=== PATIENT | female | born 1935 | race Caucasian/White ===

== ENCOUNTER 2018-03-09 00:29 | Outpatient (CLI) | payer OTHER, SELFPAY ==
--- NOTE | 2018-03-09 14:07 | DI.MAMMO_ITS ---
SYMPTOM/DIAGNOSIS: SCREENING, Z12.31 MAMMOGRAMS: Mammograms were interpreted according to the usual protocol including computer analysis with CAD system, tomosynthesis and C view imaging. Comparison is with the prior examinations. No suspicious masses or microcalcifications are seen. There is a focal asymmetric density in the inferior right breast on the mediolateral oblique view. This area should be further evaluated with a spot compression view. Ultrasound may be indicated at that time. IMPRESSION: Additional views of the right breast as described above. Category 0, breast density C. MQSA ASSESSMENT OF FINDINGS: Incomplete: Needs additional imaging evaluation. Category 0. Patient will receive a letter notifying them of these results. Bi-RADS category C. The breasts are heterogeneously dense, which may obscure small masses.
== END 2018-03-09 00:49 ==
PROVIDERS: PCP Family Medicine; Visit Provider Family Medicine
DX: Z12.31 Encounter for screening mammogram for malignant neoplasm of breast (principal); R92.8 Other abnormal and inconclusive findings on diagnostic imaging of breast
CPT/HCPCS: 77063; 77067

== ENCOUNTER 2018-03-15 00:25 | Outpatient (CLI) | payer OTHER, SELFPAY ==
--- NOTE | 2018-03-15 10:44 | DI.COMBO_ITS ---
SYMPTOM/DIAGNOSIS: F/U MAMMO, ASYMMETRIC DENSITY RIGHT BREAST ADDITIONAL VIEWS AND RIGHT BREAST ULTRASOUND: Additional images are interpreted according to the usual protocol including tomosynthesis and 2D imaging. Additional views of the right breast fail to show a persistent discrete mass. A right breast ultrasound was performed of the lower inner and lower outer quadrants. No cystic or solid masses are seen. IMPRESSION: No evidence for malignancy. Yearly mammography is recommended. Category 1. The findings were discussed with the patient on the date of the examination. [facility] ASSESSMENT OF FINDINGS: Negative. Category 1. Patient will receive a letter notifying them of these results. Bi-RADS category C. The breasts are heterogeneously dense, which may obscure small masses.
== END 2018-03-15 00:45 ==
PROVIDERS: PCP Family Medicine; Visit Provider Family Medicine
DX: R92.8 Other abnormal and inconclusive findings on diagnostic imaging of breast (principal); Z12.31 Encounter for screening mammogram for malignant neoplasm of breast
CPT/HCPCS: 76642; 77063; 77067

== ENCOUNTER 2018-08-03 23:30 | Outpatient (CLI) | payer OTHER, SELFPAY ==
--- NOTE | 2018-08-03 10:20 | DI.RAD_ITS ---
SYMPTOM/DIAGNOSIS: BACK PAIN, M54.9, DORSALGIA, H/O FALL LUMBAR SPINE: Comparison is made with bologna lacer view from a dexa scan from 2015. There is a stable mild compression fracture of the superior endplate of L 1. No additional compression fractures are seen. There is mild narrowing of the L 3-4, L 4-5 and L 5-S 1 disc spaces. Endplate osteophytes are seen. There are facet degenerative changes in the lower lumbar spine and slight spondylolisthesis at L 4-5. There is no spondylolysis. IMPRESSION: Stable L 1 compression fracture. Degenerative disc changes and facet degenerative changes.
== END 2018-08-03 23:50 ==
PROVIDERS: PCP Family Medicine; Visit Provider Internal Medicine
DX: M54.5 Low back pain (principal); M51.37 Other intervertebral disc degeneration, lumbosacral region; M47.817 Spondylosis without myelopathy or radiculopathy, lumbosacral region; M43.16 Spondylolisthesis, lumbar region
CPT/HCPCS: 72110

== ENCOUNTER 2018-10-13 11:19 | Emergency (ER) | payer OTHER, SELFPAY ==
[2018-10-13 11:27] VITALS: BP 144/80; PULSE 67; RESP 18; TEMP 36.3; O2SAT 98
--- NOTE | 2018-10-13 11:49 | ED.GENADUL_ITS ---
Discharge Plan Disposition Patient Disposition: HOME Discharge Details Chief Complaint: Cellulitis Clinical Impression: Tick bite Primary Care Provider: Eligio Maddox ED Provider: Magen Meyer Home Meds and New Rx's Prescriptions: No Action CENTRUM SILVER TABLET 1 EACH tablet 1 ea PO DAILY RF: 0 cholecalciferol (vitamin D3) [Vitamin D3] 400 UNIT capsule 800 unit PO DAILY RF: 0 Aspirin/Acetaminophen/Caffeine [Excedrin Extra Strength Caplet] 1 EACH tablet 1 ea PO PRN PRNRF: 0 Discharge Instructions Instructions: Tick Bite (ED) Referrals: Eligio Maddox [Primary Care Provider] - Medical Decision Making 83-year-old female status post tick bite unclear if tick was engorged or exactly type of tick due to the risk of Borrelia burgdorferi in this area we will treat the patient with 1 dose of doxycycline here in the emergency department and have the patient follow-up PRN with the emergency department or her primary care doctor for fever chills joint aches rash. Discussed with patient the morphology of erythema migrans so she can watch for any new symptoms. HPI 83-year-old female presents status post tick bite noted last night around 11 PM on her left upper arm patient removed a tick through it in the toilet and flushed no other complaints no fever chills joint aches no rash no swelling no pain at the site. Patient no history of tick bites in the past unsure if the tick was engorged. No shortness of breath chest pain nausea vomiting diarrhea LOC fever chills weight loss weight gain General Date/Time Provider Initiated Documentation: 10/13/18 11:33 . Related Data Home Medications Medication Instructions Recorded Confirmed Centrum Silver Tablet 1 ea PO DAILY 01/13/13 10/13/18 cholecalciferol (vitamin D3) 800 unit PO DAILY 09/14/16 10/13/18 [Vitamin D3] Aspirin/Acetaminophen/Caffeine 1 ea PO PRN PRN 02/23/17 10/13/18 [Excedrin Extra Strength Caplet] Allergies Allergy/AdvReac Type Severity Reaction Status Date / Time No Known Allergies Allergy Unverified 10/13/18 11:29 General Stated Complaint: Cellulitis GERMANIA: 4 Review of Systems Review of Systems All systems reviewed & are unremarkable except as noted in HPI and below [facility] Medical History Hyperlipidemia Osteoarthritis Family History Mother Essential hypertension Father Pulmonary fibrosis CHF (congestive heart failure) Heart disease Sister Essential hypertension Hyperlipidemia Neoplasm Grandfather No problems noted. Grandfather No problems noted. Grandmother Neoplasm Grandmother No problems noted. Brother Neoplasm Brother Heart disease Social History Smoking/Tobacco Use Status: Never Alcohol Intake: never Drug use: Never Do you feel safe at home: Yes Do you feel safe in your relationship?: Yes Exam Narrative Exam Narrative: Pulse oximetry reviewed by me and is normal [] Constitutional: Pt is in no acute distress. he is well appearing. he oriented to person, place, and time. Eyes: conjunctivae are normal. Pupils are equal, round, and reactive to light. No scleral icterus. extraocular muscles are intact Ears/Nose/Mouth/Throat: mucus membranes are moist. Musculoskeletal: neck is supple. normal range of motion in all extremities. Cardiovascular: Normal rate and rhythm. No lower extremity edema [] Respiratory: effort is normal . pt exhibits no stridor or respiratory distress. [] GastrointestinaI: abdomen soft, +BS, nontender, -rebound, -guarding. Neurological: alert and oriented to person, place, and time. he has normal strength, no tremor. Skin: Skin is warm and dry. he is not diaphoretic. Distal perfusion in tact, warm extremities, cap refill ? 2 seconds. 1 mm area of erythema consistent with tick proboscis insertion site no surrounding warmth tenderness to palpation crepitus or induration or f fluctuance Hem/Lymph/Imm: No cervical LAD, no goiter, no conjunctival pallor Psych: normal mood and affect. behavior is normal Triage and nurse notes reviewed.[] Course Vital Signs Temperature 36.3 C L 10/13/18 11:27 Pulse 67 10/13/18 11:27 Respiratory Rate 18 10/13/18 11:27 Blood Pressure 144/80 H 10/13/18 11:27 Pulse Oximetry 98 10/13/18 11:27 Temperature 36.3 C L 10/13/18 11:27 Temperature Source Skin 10/13/18 11:27 Pulse 67 10/13/18 11:27 Respiratory Rate 18 10/13/18 11:27 Respiratory Effort Non-Labored 10/13/18 11:42 Blood Pressure 144/80 H 10/13/18 11:27 Blood Pressure Position Sitting 10/13/18 11:27 Pulse Oximetry 98 10/13/18 11:27 Oxygen Delivery Method Room Air 10/13/18 11:27 Oxygen Flow Rate 0 10/13/18 11:27 Pain Level 0 10/13/18 11:27
[2018-10-13] MEDS: Doxycycline Hyclate 100 MG CAP PO (11:56)
== END 2018-10-13 12:15 | disposition home or self-care (01) ==
LOC: ER 12:23
PROVIDERS: Emergency Provider Emergency Medicine; PCP Family Medicine
DX: S40.862A Insect bite (nonvenomous) of left upper arm, initial encounter (principal); W57.XXXA Bitten or stung by nonvenomous insect and other nonvenomous arthropods, initial encounter
CPT/HCPCS: 99283

== ENCOUNTER 2019-04-04 02:30 | Outpatient (CLI) | payer OTHER, SELFPAY ==
[2019-04-04 13:15] LABS: Calculated LDL 130 mg/dL; Cholesterol 208 mg/dL (50-200); HDL Cholesterol 66 mg/dL (40-60); Triglyceride 63 mg/dL (30-150)
[2019-04-04 13:43] LABS: ESR 25 mm/hr (0-30)
== END 2019-04-04 02:50 ==
PROVIDERS: PCP Family Medicine; Visit Provider Family Medicine
DX: E78.5 Hyperlipidemia, unspecified (principal); M79.10 Myalgia, unspecified site
CPT/HCPCS: 36415; 80061; 85652

== ENCOUNTER 2019-04-04 12:59 | Outpatient (REF) | payer OTHER, SELFPAY ==
--- NOTE | 2019-04-04 10:40 | SKI_PTH ---
PATIENT: Noy Wheeler LOC: [facility] U#:[id number] AGE/SX: 84/F ROOM: RE04/04/[address]: Eligio Maddox MD : [id number] BED: DIS: 04/04/2019 SPEC #: [id number] RECD: 04/05/19 12:39 STATUS: FABIOLA REQ #: [id number] CRAIG: 04/04/19 10:[address]: Eligio Maddox DEPT: Surgical Specimen RECD BY: Sissy Anaya Tissues: 1 - SKIN BIOPSY(SHAVE/PUNCH) Procedures: SKIN LEVEL 4 Comments: [id number]
== END 2019-04-04 13:19 ==
LOC: LBN 12:59
PROVIDERS: PCP Family Medicine; Visit Provider Family Medicine
DX: L82.0 Inflamed seborrheic keratosis (principal)
CPT/HCPCS: 88305

== ENCOUNTER 2020-03-06 02:50 | Outpatient (CLI) | payer OTHER, SELFPAY ==
--- NOTE | 2020-03-06 07:15 | DI.MAMMO_ITS ---
EXAM: MAMMO SCREENING CLINICAL HISTORY: screening,Z12.39 TECHNIQUE: Mammograms were interpreted according to the usual protocol including computer analysis w [employer] CAD system, tomosynthesis and C-view imaging. COMPARISON: 2009 through 2017 FINDINGS: The breasts are composed of heterogeneously dense fibroglandular densities, Breast Density category C . No suspicious masses or suspicious microcalcifications are seen. Vascular calcifications are inciden tally noted. No skin thickening or abnormal axillary lymph nodes are seen. There has been no significant change from prior exams. IMPRESSION: BI-RADS Category 1, Negative mammogram. Continued annual screening should be based on patient's clinical status given age.. Breast Density Category C, heterogeneously Dense. The mammogram demonstrates the patient's breast tissue is dense. Dense breast tissue is very common a nd is not abnormal but dense breast tissue can make it harder to find cancer on a mammogram. Also, de nse breast tissue may increase breast cancer risk. This information about the result of the mammogram report was provided to the patient to raise their awareness. Use this report when you speak with the patient about their risks for breast cancer, which includes their family history. At that time, you may recommend additional screening tests (Ultrasound or MRI) as they might be useful based on their r isk. A negative radiographic report should not delay biopsy if a dominant or clinically suspicious mass is present. Up to ten percent of cancers are not identified on mammography. A negative report may reinforce clinical impression. Adenosis and dense breasts may obscure an underlying neoplasm. False positive reports average 6 to 10%.
== END 2020-03-06 03:10 ==
PROVIDERS: PCP Family Medicine; Visit Provider Family Medicine
DX: Z12.31 Encounter for screening mammogram for malignant neoplasm of breast (principal)
CPT/HCPCS: 77063; 77067

== ENCOUNTER 2021-02-19 14:27 | Outpatient (REF) | payer OTHER, SELFPAY ==
[2021-02-19 14:03] LABS: Abs Immature Grans 0.01 10^3/uL (0.0-0.06); Absolute Basophil Count 0.02 10^3/uL (0.0-0.2); Absolute Eosinophil Count 0.06 10^3/uL (0.0-0.7); Absolute Lymphocyte Count 1.19 10^3/uL (1.2-3.4); Absolute Monocyte Count 0.41 10^3/uL (0.1-0.8); Absolute Neutrophil Count 4.26 10^3/uL (1.2-6.7); Basophils % 0.3; Immature Grans % 0.2; MCH 19.8 pg (27.0-33.0); MCHC 27.5 % (32.0-36.0); MCV 72.1 fL (80-95); MPV 12.4 fL (8.0-11.0); Monocytes % 6.9; Neutrophils % 71.6; Nucleated RBC 0 %; Platelet Count 352 10^3/uL (130-400); RBC 3.33 10^6/uL (3.93-5.22); RDW 19.1 % (11.7-14.6); RDW-SD 49.4 fL; WBC 5.95 10^3/uL (4.4-10.8)
[2021-02-19 14:23] LABS: Anion Gap 9.9 mmol/L (3-11); BUN 20 mg/dL (7-18); CO2 26.1 mmol/L (21.0-32.0); CREATININE 1.1 mg/dL (0.55-1.02); Calcium 9.2 mg/dL (8.5-10.1); Chloride 106 mmol/L (98-107); Estimated GFR 47.32 (mL/min/1.73m2); Glucose 93 mg/dL (74-106); Potassium 4.3 mmol/L (3.5-5.1); Sodium 142 mmol/L (136-145)
[2021-02-19 14:24] LABS: Bilirubin Small (Negative); Blood Negative (Negative); Clarity Clear (Clear); Glucose Negative (Negative); Ketones Negative (Negative); Leukocyte Esterase Negative (Negative); Nitrite Positive (Negative); Specific Gravity 1.025 (1.005-1.025); Urobilinogen 0.2 EU/dL (Up TO 0.2)
[2021-02-19 14:27] LABS: Bacteria Few HPF (Negative); Crystals Negative HPF (Negative); Epithelial Cells Negative HPF (Negative); Mucus Moderate (Negative); RBC 0-2 HPF (0-2); WBC 0-2 HPF (0-5)
[2021-02-19 14:28] LABS: C & S Indicated? C&S Done As Ordered; Casts 5-10 Hyaline LPF (Negative)
[2021-02-19 14:34] LABS: Anisocytosis 2+; Diff Comment RBC Morph Reviewed; HGB 6.6 g/dL (11.2-15.7); Hypochromasia 2+; Microcytosis 2+
[2021-02-19 14:47] LABS: Polychromasia Present
== END 2021-02-19 14:28 | disposition home or self-care (01) ==
LOC: LBN 14:27
PROVIDERS: PCP Family Medicine; Referring Provider Physician Assistant Medical; Visit Provider Physician Assistant Medical
DX: R10.84 Generalized abdominal pain (principal)
CPT/HCPCS: 80048; 81003; 81015; 85025; 87086

== ENCOUNTER 2021-02-19 17:03 | Inpatient (IN) | payer MEDICARE, SELFPAY ==
[2021-02-19] VITALS (27 sets, daily range): BP systolic 129–161; BP diastolic 60–89; PULSE 68–90; RESP 14–23; TEMP 36.3–37; O2SAT 86–100
--- NOTE | 2021-02-19 17:30 | DI.CT_ITS ---
Exam(s) CT ABDOMEN PELVIS W EXAM: CT ABDOMEN PELVIS W CLINICAL HISTORY: Abdominal Pain TECHNIQUE: Imaging Protocol: Axial computed tomography images with coronal and sagittal reformatted images were created and reviewed CONTRAST MATERIAL: Intravenous: Omnipaque 350 Contrast volume:80 mL Oral: No COMPARISON: No exams were available for comparison FINDINGS: ABDOMEN: Lung Bases: Normal where visualized. Liver: Normal density. No measurable mass. There is a small simple cyst in the right lobe of the live r. No follow-up is recommended. Portal, Superior Mesenteric, and Splenic Veins: Unremarkable. Gallbladder and Biliary Tract: No radiodense calculus or dilation. Pancreas: Normal density, no abnormal calcifications or inflammatory process. Spleen: Normal. Adrenals: No masses seen. Kidneys: Normal size, contour and axis. No radiodense stones or obstructive uropathy. No masses seen. Abdominal Aorta: Abdominal portion non-dilated. Atherosclerosis. Bowel: There is a collection of bowel in the right and central abdomen which appears to protrude thro ugh the mesentery in the right lower quadrant. The bowel involved includes the distal small bowel an d cecum. The findings raise a question of an internal hernia. Intussusception or volvulus should al so be considered. The proximal small bowel is not dilated. No appendicitis. Peritoneal Cavity: Trace amount of free fluid in the pelvis. No free air. Lymph Nodes: Within normal limits. Bones: Within normal limits for the patient's age. Old compression deformities are seen at L1 and L2 . Soft Tissues: Unremarkable. PELVIS: Bladder: Symmetric distention, no gross wall thickening. Reproductive Organs: Unremarkable as visualized. Lymph Nodes: Within normal limits. Bones: Within normal limits for the patient's age. IMPRESSION: 1. Collection of bowel in the right in central abdomen which appears to represent an internal hernia. Intussusception or volvulus cannot be excluded. A lead point mass delete should be considered. 2. Trace amount of free fluid in the pelvis. No evidence of pneumoperitoneum. RADIATION DOSE DELIVERED: 624.32mGy.cm Total DLP DATA REPOSITORY: All CT scans at this facility are submitted to the National Radiology Data Registry (NRDR) Dose Index Registry (DIR) with the [employer] (ACR). RADIATION OPTIMIZATION: All CT scans at this facility use at least one of these dose optimization te chniques: automated exposure control; mA and/or kV adjustment per patient size (includes targeted exa ms where dose is matched to clinical indication); or iterative reconstruction.
--- NOTE | 2021-02-19 17:41 | ED.GENADUL_ITS ---
Discharge Plan Disposition [facility] Condition: Stable Discharge Details Clinical Impression: Abdominal pain, Anemia, GI (gastrointestinal bleed) Admit Date/Time: 02/19/21 20:17 Admit Provider: Bárbara Mulligan Attending Provider: Bárbara Mulligan Primary Care Provider: Eligio Maddox ED Provider: Mikayla Stein Medical Decision Making 86-year-old female with a past medical history of arthritis and high cholesterol and skin cancer to the nose presents to the ER with abdominal cramping which began yesterday. Patient was seen in urgent care prior to arrival and was found to be anemic with a hemoglobin of 6.6 and hematocrit 24.0. Patient denies any diarrhea, nausea vomiting, fever chills denies any dark stools or hematochezia. Denies fatigue. On initial exam abdomen is soft, nondistended nontender to palpation all 4 quadrants. CBC, CMP, urinalysis, type and screen, CT abdomen pelvis with IV contrast ordered at this time. CBC shows hemoglobin of 6.4, hematocrit 23.7, RBC 3.26, MCV 72.7, MCH 19.6, MCHC 27%, RDW 19% platelets are 349, BUN 22 creatinine 1.0 GFR 62 COMPARISON: 1. US AAA DIAGNOSTIC/FOLLOW UP 03/01/2017 4:24 PM 2. CR XR lumbar spine complete 08/03/2018 9:58:57 AM FINDINGS: Lungs: Mild dependent changes at the visualized lung bases. Liver: Tiny hypodensity at the right lobe of the liver is too small to accurately characterize, measuring 5 mm, likely representing a hepatic cyst. Gallbladder and bile ducts: Normal. No calcified stones. No ductal dilation. Pancreas: Normal. No ductal dilation. Spleen: Normal. No splenomegaly. Adrenal glands: Normal. No mass. Kidneys and ureters: Small hypodensity at the superior pole of the left kidney, too small to accurately characterize, likely representing a benign simple cyst. Stomach and bowel: Large intussusception involving the cecum through the transverse colon, containing portions of the distal small bowel. Appendix: The appendix is not identified. Intraperitoneal space: Small amount of free fluid in the pelvis. Vasculature: Mild diffuse atherosclerosis of the abdominal aorta and branch vessels, with tortuosity of the infrarenal abdominal aorta. Lymph nodes: Unremarkable. No enlarged lymph nodes. Urinary bladder: Unremarkable as visualized. Reproductive: Unremarkable as visualized. 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 Stable compression deformity at L1. Interval development of an inferior endplate compression deformity at L2, which appears chronic on the current study. Soft tissues: Unremarkable. IMPRESSION: 1. Large hiatal hernia involving the cecum through the transverse colon. The imaging findings raise concern for a lead point mass, however this is not clearly identified on the current examination. 2. Small amount of free fluid in the pelvis, likely related to acute bowel changes described above. 3. Interval development of an inferior endplate compression fracture at L2, which appears chronic on the current study. Stable fracture at L1. Thank you for allowing us to participate in the care of your patient. Dictated and Authenticated by: Valentín Juarez MD 2020: Spoke with Dr. Mulligan discussed patient case in detail with her who accepts patient for admission, she recommends an additional unit of blood. Patient and friend informed of plan of care and are in agreement and verbalized understanding. Patient to be admitted under surgery service. Patient remained hemodynamically stable throughout the remainder of her stay alert and oriented. HPI General Mode of arrival: ambulatory . Date/Time Provider Initiated Documentation: 02/19/21 17:35 . Limitations to Documentation: no limitations . Information obtained by: patient, RN notes reviewed and old records reviewed . HPI Narrative: 86-year-old female with a past medical history of arthritis and high cholesterol and skin cancer to the nose presents to the ER with abdominal cramping which began yesterday. Patient was seen in urgent care prior to arrival and was found to be anemic with a hemoglobin of 6.6 and hematocrit 24.0. Patient denies any diarrhea, nausea vomiting, fever chills denies any dark stools or hematochezia. Denies fatigue. On initial exam abdomen is soft, nondistended nontender to palpation all 4 quadrants. Related Data Home Medications Medication Instructions Recorded Confirmed Centrum Silver Tablet 1 ea PO DAILY 01/13/13 02/19/21 cholecalciferol (vitamin D3) 800 unit PO DAILY 09/14/16 02/19/21 [Vitamin D3] Aspirin/Acetaminophen/Caffeine 1 ea PO PRN PRN 02/23/17 02/19/21 [Excedrin Extra Strength Caplet] Allergies Allergy/AdvReac Type Severity Reaction Status Date / Time No Known Allergies Allergy Verified 02/19/21 17:15 General Stated Complaint: Abd Prob GERMANIA: 3 Review of Systems All systems reviewed & are unremarkable except as noted in HPI and below Gastrointestinal Gastrointestinal: Reports abdominal pain (Cramping) PFSH Medical History Hyperlipidemia Osteoarthritis Family History Mother , GI BLEED at age 86. Essential hypertension Father , age 79 Pulmonary fibrosis CHF (congestive heart failure) Heart disease Sister , age 72 Essential hypertension Hyperlipidemia Liver cancer Maternal Grandfather No problems noted. Paternal Grandfather No problems noted. Maternal Grandmother Cancer Paternal Grandmother No problems noted. Brother , age 80? Pancreatic cancer Brother , age 60? Heart disease Sister No problems noted. Social History Smoking/Tobacco Use Status: Never Smoking risk assessment performed?: Yes Alcohol Intake: never Drug use: Never Substance use type: does not use Caregiver/Support person: No Household members: none Communication Needs: None Do you need help understanding health information?: Never Pets and animals: No Sexually active: No Do you think of yourself as: straight/heterosexual What is your relationship status?: How often do you talk on the phone with friends or family?: three or more times per week How often do you get together with friends or relatives?: three or more times per week How often do you attend roman catholic or episcopal services?: 1-3 times per year Do you belong to any clubs or organized social groups?: no Panel score (0-1 are the most socially isolated patients): 1 What type of physical activity do you participate in: other Details: [employer] and decline to answer Duration: decline to answer Frequency: 1-2 times per week Johanne/Church: No preference Special johanne needs: No Seatbelt use: always Helmet use: Yes Helmet use: always Drive intox or ride w/intox 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 Appears stated age. Normal body habitus. Head: Normocephalic, no trauma. Eyes: Pupils PERRLA, Red reflex noted, EOM's intact. Eyelids symmetrical without lesions, discharge, or swelling. ENT: Bilateral TM's WNL, External ear normal to inspection, no mastoid TTP, swelling, or erythema, Nasal turbinates WNL, no nasal discharge. Normal dentition, Posterior pharynx WNL, no exudate. Chest: RRR, Normal S1, S2, distal pulses intact. Resp: Lungs clear to auscultation bilaterally, no wheezes, rales, or rhonchi. Abdomen: Soft, nondistended nontender to palpation all 4 quadrants. Musculoskeletal: Normal gait, 5/5 strength to all four extremities. Skin: No suspicious rashes or lesions. Capillary refill less than 2 sec. Neurologic: Cranial nerves II-XII intact. Alert and oriented x 3. DTR's intact. Hematologic/Lymphatic: No ecchymosis, no lymphadenopathy. Course Vital Signs Vital signs: Vital Signs Temperature 36.7 C 02/19/21 17:11 Pulse 90 02/19/21 17:11 Respiratory Rate 20 02/19/21 17:11 Blood Pressure 142/73 H 02/19/21 17:11 Pulse Oximetry 98 02/19/21 17:11 Temperature 36.7 C 02/19/21 17:11 Temperature Source Skin 02/19/21 17:11 Pulse 90 02/19/21 17:11 Respiratory Rate 20 02/19/21 17:11 Respiratory Effort Non-Labored 02/19/21 17:16 Blood Pressure 142/73 H 02/19/21 17:11 Blood Pressure Position Sitting 02/19/21 17:11 Pulse Oximetry 98 02/19/21 17:11 Oxygen Delivery Method Room Air 02/19/21 17:11 Oxygen Flow Rate 0 02/19/21 17:11 Pain Level 5 02/19/21 17:11 Procedures Stool Hemoccult Procedural Steps Taken: stool placed in appropriate test area, developer placed on stool and control areas and controls appropriately positive and negative Hemoccult result: positive
[2021-02-19 17:54] LABS: Abs Immature Grans 0.01 10^3/uL (0.0-0.06); Absolute Basophil Count 0.02 10^3/uL (0.0-0.2); Absolute Eosinophil Count 0.12 10^3/uL (0.0-0.7); Absolute Lymphocyte Count 2.09 10^3/uL (1.2-3.4); Absolute Monocyte Count 0.61 10^3/uL (0.1-0.8); Absolute Neutrophil Count 3.96 10^3/uL (1.2-6.7); Basophils % 0.3; Eosinophils % 1.8; HCT 23.7 % (36.0-46.0); Immature Grans % 0.1; Lymphocytes % 30.7; MCH 19.6 pg (27.0-33.0); MCV 72.7 fL (80-95); MPV 11.1 fL (8.0-11.0); Neutrophils % 58.1; Nucleated RBC 0 %; Platelet Count 349 10^3/uL (130-400); RBC 3.26 10^6/uL (3.93-5.22); RDW-SD 49.8 fL; WBC 6.81 10^3/uL (4.4-10.8)
[2021-02-19 18:02] LABS: Magnesium 2.3 mg/dL (1.8-2.4)
[2021-02-19 18:06] LABS: ALT 16 U/L (14-59); AST 12 U/L (15-37); Albumin 3.5 g/dL (3.4-5.0); Alkaline Phosphatase 136 U/L (46-116); BUN 22 mg/dL (7-18); Bilirubin, Total 0.3 mg/dL (0.2-1.0); Calcium 9.4 mg/dL (8.5-10.1); Chloride 103 mmol/L (98-107); Estimated GFR 52.82 (mL/min/1.73m2); Glucose 104 mg/dL (74-106); Potassium 3.8 mmol/L (3.5-5.1); Sodium 139 mmol/L (136-145); Total Protein 7.6 g/dL (6.4-8.2)
[2021-02-19 18:08] LABS: HGB 6.4 g/dL (11.2-15.7)
[2021-02-19 18:18] LABS: Diff Comment RBC Morph Reviewed; Hypochromasia 2+; Microcytosis 2+; Poikilocytes 1+; Polychromasia Present
[2021-02-19] MEDS: Omnipaque 350 MG/ML 100 ML BTL IJ (19:01)
[2021-02-19] MEDS: Normal Saline Flush 10 ML SYR IVP ×2 (19:02→22:37)
--- NOTE | 2021-02-19 19:57 | DI.VRAD_ITS ---
PROCEDURE INFORMATION: Exam: CT Abdomen And Pelvis With Contrast Exam date and time: 02/19/2021 5:41 PM Age: 86 years old Clinical indication: Abdominal pain; Generalized TECHNIQUE: Imaging protocol: Computed tomography of the abdomen and pelvis with contrast. Contrast material: OMNIPAQUE 350; Contrast volume: 80 ml; Contrast route: INTRAVENOUS (IV); COMPARISON: 1. US AAA DIAGNOSTIC/FOLLOW UP 03/01/2017 4:24 PM 2. CR XR lumbar spine complete 08/03/2018 9:58:57 AM FINDINGS: Lungs: Mild dependent changes at the visualized lung bases. Liver: Tiny hypodensity at the right lobe of the liver is too small to accurately characterize, measuring 5 mm, likely representing a hepatic cyst. Gallbladder and bile ducts: Normal. No calcified stones. No ductal dilation. Pancreas: Normal. No ductal dilation. Spleen: Normal. No splenomegaly. Adrenal glands: Normal. No mass. Kidneys and ureters: Small hypodensity at the superior pole of the left kidney, too small to accurately characterize, likely representing a benign simple cyst. Stomach and bowel: Large intussusception involving the cecum through the transverse colon, containing portions of the distal small bowel. Appendix: The appendix is not identified. Intraperitoneal space: Small amount of free fluid in the pelvis. Vasculature: Mild diffuse atherosclerosis of the abdominal aorta and branch vessels, with tortuosity of the infrarenal abdominal aorta. Lymph nodes: Unremarkable. No enlarged lymph nodes. Urinary bladder: Unremarkable as visualized. Reproductive: Unremarkable as visualized. 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 Stable compression deformity at L1. Interval development of an inferior endplate compression deformity at L2, which appears chronic on the current study. Soft tissues: Unremarkable. IMPRESSION: 1. Large hiatal hernia involving the cecum through the transverse colon. The imaging findings raise concern for a lead point mass, however this is not clearly identified on the current examination. 2. Small amount of free fluid in the pelvis, likely related to acute bowel changes described above. 3. Interval development of an inferior endplate compression fracture at L2, which appears chronic on the current study. Stable fracture at L1. Dictated and Authenticated by: Valentín Juarez MD. Ordering:GEORGIA Degroot MD
[2021-02-19 20:25] LABS: Source Nasal/Nares
--- NOTE | 2021-02-19 20:42 | W.SURGCON ---
Assessment and Plan Assessment and plan (1) Intussusception of colon: Status: Acute Assessment and plan: abx bowel rest hydration pain management -if not resolved in am=OR for ex lap and resection. possible colostomy (2) Anemia: Status: Chronic Assessment and plan: transfuse 2 units PRBC in total PPI cbc in am no anti-coags anemia - concern that there could be a cancer which has been bleeding is the lead point/ cause of the intusception. I would not expect the pt to have a hgb this low w/ an acute intussecption and not be having profuse bloody diarrhea. This is concern that there is a right sided malignancy causing the intusscpetion. if this does resolve- she will at least require a CE for evaluation of tumor. (3) Osteoporosis: Status: Acute (4) Osteoarthritis of hand: Status: Acute (5) Hyperlipidemia with target LDL less than 100: Status: Acute History of Present Illness Narrative: I did personaly review her CT. pt notes states this has been ongoing for <24 hrs. She denies any cahnges in her bowels or noting blood in her stools r wt loss. She has never had a CE (at least at [facility]). Per the ER PA- pt pain is intermittent/colicky, and comes and goes. no vomiting. No bloody diarrhea. She has no fever/elevated WBC. She has mild pain on PE and no peritoneal signs. Will admit for hydration adn pain control. if not improved in am - OR Consults Consult date: 02/19/21 [facility] Medical History Hiatal hernia Large on CT 02/19/21 Hyperlipidemia Osteoarthritis Family History Mother , GI BLEED at age 86. Essential hypertension Father , age 79 Pulmonary fibrosis CHF (congestive heart failure) Heart disease Sister , age 72 Essential hypertension Hyperlipidemia Liver cancer Maternal Grandfather No problems noted. Paternal Grandfather No problems noted. Maternal Grandmother Cancer Paternal Grandmother No problems noted. Brother , age 80? Pancreatic cancer Brother , age 60? Heart disease Sister No problems noted. Social History (Reviewed 02/20/21 @ 09:39 by YOLA Bernard Smoking/Tobacco Use Status: Never Smoking risk assessment performed?: Yes Alcohol Intake: never Drug use: Never Substance use type: does not use Caregiver/Support person: No Household members: none Communication Needs: None Do you need help understanding health information?: Never Pets and animals: No Sexually active: No Do you think of yourself as: straight/heterosexual What is your relationship status?: How often do you talk on the phone with friends or family?: three or more times per week How often do you get together with friends or relatives?: three or more times per week How often do you attend jehovah's witness or protestant services?: 1-3 times per year Do you belong to any clubs or organized social groups?: no Panel score (0-1 are the most socially isolated patients): 1 What type of physical activity do you participate in: other Details: Bone [employer] and decline to answer Duration: decline to answer Frequency: 1-2 times per week Johanne/Bahai: No preference Special johanne needs: No Seatbelt use: always Helmet use: Yes Helmet use: always Drive intox or ride w/intox concrete mixer truck driver: No Do you feel safe at home: Yes Do you feel safe in your relationship?: Yes Results Last Vital Signs Temp 36.5 C 02/19/21 20:15 Pulse 82 02/19/21 20:15 Resp 18 02/19/21 20:15 BP 151/83 H 02/19/21 20:15 Pulse Ox 99 02/19/21 20:15 Labs Result diagrams: 02/20/21 06:40 02/20/21 06:40 Labs: Laboratory Results - last 24 hr 02/19/21 02/19/21 02/19/21 17:23 17:23 17:23 WBC 6.81 RBC 3.26 L Hgb 6.4 L* Hct 23.7 L MCV 72.7 L MCH 19.6 L MCHC 27.0 L RDW 19.0 H Plt Count 349 MPV 11.1 H Immature Gran % 0.1 Neutrophils % 58.1 Lymphocytes % 30.7 Monocytes % 9.0 Eosinophils % 1.8 Basophils % 0.3 Nucleated RBC % 0 Absolute Neutrophils 3.96 Absolute Lymphocytes 2.09 Absolute Monocytes 0.61 Absolute Eosinophils 0.12 Absolute Basophils 0.02 RBC Morphology See Below Polychromasia Present Hypochromasia 2+ Poikilocytosis 1+ Microcytosis 2+ Sodium 139 Potassium 3.8 Chloride 103 Carbon Dioxide 27.0 Anion Gap 9.0 BUN 22 H Creatinine 1.0 Estimated GFR/1.73 m2 52.82 Glucose 104 Calcium 9.4 Magnesium 2.3 Total Bilirubin 0.3 AST 12 L ALT 16 Alkaline Phosphatase 136 H Total Protein 7.6 Albumin 3.5 COVID-19 Source Patient ABO/Rh Antibody Screen Crossmatch 02/19/21 02/19/21 17:23 20:15 WBC RBC Hgb Hct MCV MCH MCHC RDW Plt Count MPV Immature Gran % Neutrophils % Lymphocytes % Monocytes % Eosinophils % Basophils % Nucleated RBC % Absolute Neutrophils Absolute Lymphocytes Absolute Monocytes Absolute Eosinophils Absolute Basophils RBC Morphology Polychromasia Hypochromasia Poikilocytosis Microcytosis Sodium Potassium Chloride Carbon Dioxide Anion Gap BUN Creatinine Estimated GFR/1.73 m2 Glucose Calcium Magnesium Total Bilirubin AST ALT Alkaline Phosphatase Total Protein Albumin COVID-19 Source Nasal/Nares Patient ABO/Rh A Positive Antibody Screen NEGATIVE Crossmatch See Detail
[2021-02-19 21:23] LABS: Iron 10 ug/dL (50-170); Total Iron Binding Capacity 418 ug/dL (250-450); Transferrin Sat 2 % (15-50)
[2021-02-19 21:36] LABS: Ferritin 7 ng/mL (8-252)
--- NOTE | 2021-02-19 21:45 | RT.EKG_ITS ---
APPROVED REPORT Exam: Resting ECG Reason for Exam: unknown Patient Location: I HR:70 bpm ECG Measurements Heart Rate 70 AXIS LA 135 P 29 QRSd 131 QRS 72 QT 447 T 7 QTc 482 Conclusion Poor quality data, interpretation may be affected Sinus rhythm...normal P axis, V-rate 60- 99 Right bundle branch block...QRSd>120, terminal axis(90,270)
[2021-02-19 22:34] LABS: COVID-19 PCR Negative (Negative)
[2021-02-19] MEDS: Pantoprazole 40 MG VIAL IVP (22:38)
[2021-02-19] MEDS: MORPHine 2 MG/ML SYR IV (22:57)
[2021-02-19] MEDS: PIPERACILLIN/TAZO 3.375 GM in Normal Saline 50 ML IVPB (23:35)
[2021-02-19] MEDS: Normal Saline 50 ML 12.5 ML (23:35)
[2021-02-20] VITALS (127 sets, daily range): BP systolic 101–170; BP diastolic 52–87; PULSE 63–86; RESP 9–25; TEMP 36.1–37.2; O2SAT 90–100; BMI 20.2
[2021-02-20] MEDS: Normal Saline Flush 10 ML SYR IVP ×6 (01:36→21:40)
[2021-02-20] MEDS: Normal Saline 1,000 ML 125 ML IV ×2 (02:01→14:35)
[2021-02-20] MEDS: PIPERACILLIN/TAZO 3.375 GM in Normal Saline 50 ML IVPB (05:19)
--- NOTE | 2021-02-20 06:00 | DI.RAD_ITS ---
Exam(s) XR ABDOMEN FLAT UPRIGHT EXAM: XR ABDOMEN FLAT UPRIGHT CLINICAL HISTORY: intussception TECHNIQUE: COMPARISON: No exams were available for comparison FINDINGS: Two views were obtained. There is an NG tube overlying the midportion of the stomach. Bowel gas pat tern is within normal limits. No free intraperitoneal air. No other significant findings. Contrast material noted in urinary bladder following recent abdominal CT. IMPRESSION: No evidence of acute process. RADIATION DOSE DELIVERED: Total DLP
[2021-02-20 07:02] LABS: Abs Immature Grans 0.02 10^3/uL (0.0-0.06); Absolute Basophil Count 0.01 10^3/uL (0.0-0.2); Absolute Eosinophil Count 0.13 10^3/uL (0.0-0.7); Absolute Monocyte Count 0.65 10^3/uL (0.1-0.8); Absolute Neutrophil Count 4.35 10^3/uL (1.2-6.7); Basophils % 0.1; Eosinophils % 1.9; HCT 31.2 % (36.0-46.0); HGB 9.2 g/dL (11.2-15.7); Immature Grans % 0.3; Lymphocytes % 23.7; MCH 22.7 pg (27.0-33.0); MCHC 29.5 % (32.0-36.0); MCV 76.8 fL (80-95); MPV 11.6 fL (8.0-11.0); Monocytes % 9.6; Neutrophils % 64.4; Nucleated RBC 0 %; Platelet Count 305 10^3/uL (130-400); RBC 4.06 10^6/uL (3.93-5.22); RDW 20.2 % (11.7-14.6); RDW-SD 56.7 fL; WBC 6.76 10^3/uL (4.4-10.8)
[2021-02-20] MEDS: Ondansetron 4 MG/2 ML VIAL IVP (07:06)
[2021-02-20 07:32] LABS: BUN 13 mg/dL (7-18); CREATININE 0.8 mg/dL (0.55-1.02); Calcium 8.7 mg/dL (8.5-10.1); Chloride 105 mmol/L (98-107); Glucose 97 mg/dL (74-106); Potassium 3.7 mmol/L (3.5-5.1); Sodium 139 mmol/L (136-145)
--- NOTE | 2021-02-20 07:42 | W.ANESPRE ---
General Info Date of Service Date Performed: 02/20/21 Height: 5 ft 4 in Weight: 53.524 kg Body Mass Index (BMI): 20.2 Surgical Procedure: Operation Date: 02/20/21 10:05 Proposed Procedures Side Surgeon p Exploratory Laparotomy,POSSIBLE BOWEL RESECTION, POSSIBLEL COLOSTOMY Bárbara Mulligan, Meds Allergies and Home Medications Allergies Allergy/AdvReac Type Severity Reaction Status Date / Time No Known Allergies Allergy Verified 02/19/21 17:15 Home Medication Medication Instructions Recorded Centrum Silver Tablet 1 ea PO DAILY 01/13/13 cholecalciferol (vitamin D3) 800 unit PO DAILY 09/14/16 [Vitamin D3] Aspirin/Acetaminophen/Caffeine 1 ea PO PRN PRN 02/23/17 [Excedrin Extra Strength Caplet] Current Visit Medications: Current Medications Generic Name Dose Route Start Last Admin Trade Name Freq PRN Reason Stop Dose Admin Sodium Chloride 500 mls @ 0 mls/hr 02/19/21 20:16 Saline 500ml Bag IV PRN PRN As Directed Sodium Chloride 1,000 mls @ 125 mls/hr 02/19/21 22:00 02/20/21 02:01 Saline 1000ml Bag IV 125 mls/hr INFUSION PRETTY Administration Acetaminophen 1,000 mg in 100 mls @ 400 mls/hr 02/19/21 20:16 Ofirmev IVPB Q8H PRN PRN Pain or Fever Piperacillin/Tazobactam/Dextrose 3.375 gm in 50 mls @ 12.5 mls/hr 02/20/21 14:00 Zosyn IVPB Q8H [facility] Protocol IV Miscellaneous Supplies 1 each 02/19/21 20:30 Iv Access IV DIRECTED [facility] Morphine Sulfate 2 mg 02/19/21 21:30 02/19/21 22:57 Morphine 2 Mg/Ml Syr IV 2 mg Q1H PRN PRN Administration Ondansetron HCl 4 mg 02/19/21 21:27 02/20/21 07:06 Ondansetron 4 Mg/2 Ml Vial IVP 4 mg Q4H PRN PRN Administration Pantoprazole Sodium 40 mg 02/20/21 21:00 Pantoprazole 40 Mg Vial IVP Q24H [facility] Sodium Chloride 0 ml 02/19/21 20:16 02/20/21 07:05 Normal Saline Flush 10 Ml Syr IVP 10 ml PRN PRN Administration PFSH Active Problems Active Problems: Problem Status Onset Code Intussusception of colon K56.1 Abdominal pain R10.9 Anemia D64.9 GI (gastrointestinal bleed) K92.2 Actinic keratosis L57.0 Visit for suture removal Z48.02 Chest pain 05/05/02 R07.9 Ear pain, left H92.02 Back pain M54.9 Dysplastic skin lesion 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 L98.8 Osteoporosis M81.0 Osteoarthritis of hand 02/01/14 Idiopathic urticaria 02/11/15 L50.1 Hyperlipidemia with target LDL less than 100 01/26/13 E78.5 Neoplasm of skin D49.2 Medical History Medical History (Updated 02/20/21 @ 08:01 by Kimani Schultz CRNA) Hiatal hernia Large on CT 02/19/21 Hyperlipidemia Osteoarthritis Tobacco Smoking/Tobacco Use Status: Never Passive smoking exposure: Yes Alcohol Alcohol Intake: never Substance Use Substance use: Never Substance use type: does not use Vital Signs and Lab Results Vital Signs Most Recent Vital Signs in EMR: Most Recent Vital Signs Temp Pulse Resp BP Pulse Ox 36.7 C 74 16 149/87 H 96 02/20/21 07:13 02/20/21 07:13 02/20/21 07:13 02/20/21 07:13 02/20/21 07:13 Lab Results Result Diagrams: 02/20/21 06:40 02/20/21 06:40 Blood Type / Crossmatch: Patient ABO/Rh A Positive 02/19/21 17:23 02/19/21 Antibody Screen NEGATIVE 02/19/21 17:23 02/19/21 Crossmatch See Detail 02/19/21 17:23 02/19/21 Complete Blood Count: White Blood Count 6.76 10^3/uL (4.4-10.8) 02/20/21 06:40 02/20/21 Red Blood Count 4.06 10^6/uL (3.93-5.22) 02/20/21 06:40 02/20/21 Hemoglobin 9.2 g/dL (11.2-15.7) L 02/20/21 06:40 02/20/21 Hematocrit 31.2 % (36.0-46.0) L 02/20/21 06:40 02/20/21 Platelet Count 305 10^3/uL (130-400) 02/20/21 06:40 02/20/21 Complete Metabolic Panel: Sodium Level 139 mmol/L (136-145) 02/20/21 06:40 02/20/21 Potassium Level 3.7 mmol/L (3.5-5.1) 02/20/21 06:40 02/20/21 Chloride Level 105 mmol/L (98-107) 02/20/21 06:40 02/20/21 Carbon Dioxide Level 25.0 mmol/L (21.0-32.0) 02/20/21 06:40 02/20/21 Blood Urea Nitrogen 13 mg/dL (7-18) 02/20/21 06:40 02/20/21 Creatinine 0.8 mg/dL (0.55-1.02) 02/20/21 06:40 02/20/21 Estimated GFR/1.73 m2 >= 60.00 (mL/min/1.73m2) 02/20/21 06:40 02/20/21 Magnesium Level 2.1 mg/dL (1.8-2.4) 02/20/21 06:40 02/20/21 Calcium Level 8.7 mg/dL (8.5-10.1) 02/20/21 06:40 02/20/21 Albumin 3.5 g/dL (3.4-5.0) 02/19/21 17:23 02/19/21 Glucose Level 97 mg/dL (74-106) 02/20/21 06:40 02/20/21 Liver Function Panel: Alanine Aminotransferase (ALT/SGPT) 16 U/L (14-59) 02/19/21 17:23 02/19/21 Aspartate Amino Transf (AST/SGOT) 12 U/L (15-37) L 02/19/21 17:23 02/19/21 Coagulation Panel: No Data to Display Cardiac Panel: No Data to Display Arterial Blood Gas: No Data to Display Venous Blood Gas: No Data to Display Pancreas Panel: No Data to Display Thyroid Panel: No Data to Display Infectious Disease: Coronavirus (COVID-19)(PCR) Negative (Negative) 02/19/21 20:15 02/19/21 Coronavirus 2019 Source Nasal/Nares 02/19/21 20:15 02/19/21 Blood Cultures: No Data to Display Toxicology Panel: No Data to Display Anesthesia Assessment and Plan Anesthesia History Personal History: No History of Anesthesia Complications Family History: No Family History of Anesthesia Complications Exercise Tolerance Exercise Tolerance: Metabolic Equivalents>4 Pertinent Negatives Pertinent Negatives: No Symptoms of GERD, No Major Cardiovascular Symptoms or Complaints and No Major Pulmonary Symptoms or Complaints Cardiac & Pulmonary Exam Cardiac Exam: Normal S1/S2 Heart Sounds Pulmonary Exam: Clear Bilateral Breath Sounds Airway Exam Known Difficult Airway: No Mallampati Class: 1 Mouth Opening: Normal (> 3cm) Thyromental Distance: Less than 3 cm Neck Range of Motion: Full ROM Neck Circumference: Normal Teeth Condition: Normal Dentition ASA Classification ASA Score: ASA 2 Emergency Case?: No NPO Status NPO Status: NPO Clears >2 hours, Solids >8 hours Anesthesia Plan Resuscitation Status: Full Code Anesthesia Technique: General Anesthesia Airway Planned: Endotracheal Tube Pain Management: Epidural Monitors Used: Standard Monitors
[2021-02-20 07:48] LABS: Magnesium 2.1 mg/dL (1.8-2.4)
--- NOTE | 2021-02-20 08:07 | DI.VRAD_ITS ---
PROCEDURE INFORMATION: Exam: XR Abdomen Exam date and time: 02/20/2021 12:00 AM Age: 86 years old Clinical indication: Other: Intussception TECHNIQUE: Imaging protocol: XR of the abdomen. Views: 2 Views. Upright and supine views. COMPARISON: CT ABDOMEN PELVIS W 02/19/2021 7:01 PM FINDINGS: Tubes, catheters and devices: Enteric tube in good position. Gastrointestinal tract: No abnormally dilated bowel loops. Air is seen in nondilated colon. Air is seen in a few nondilated small bowel loops as well. Intraperitoneal space: Normal. No free air. Organs: Excreted contrast material is seen in the urinary bladder. Bones/joints: Unremarkable for age. Soft tissues: In the area where the patient has a known intussusception in the right lower quadrant, there is a soft tissue focus which displaces adjacent air-filled bowel loops. Other findings: None. IMPRESSION: Nonobstructive bowel gas pattern. Findings likely reflecting persistent intussusception. Please see above for further comments. Dictated and Authenticated by: Anahi Crespo MD. Ordering:JAMISON Granger MD
--- NOTE | 2021-02-20 08:16 | INITIAL_ITS ---
- If Service Date Differs Date of service: 02/20/21 Time of Service: 08:17 Care Management Initial Assess REASON FOR HOSPITALIZATION:: Colonic Intussception PAST MEDICAL HISTORY/PAST SURGICAL HISTORY:: Hyperlipidemia. Osteoarthritis PREVIOUS FUNCTIONAL STATUS/SOCIAL/FAMILY SUPPORTS:: Noy resides in [place], [place], she is and has a daughter, Benita who resides in [place], [place]. She is independent in the community with all ADLs. CURRENT FUNCTIONAL STATUS:: Noy continues to be closely monitored and treated by surgical services. She was taken to the OR today and admitted to the ICU post operatively. CM was unable to connect with her, but continues to follow. ADVANCE DIRECTIVES:: None on file at [facility]. Has patient been provided with info about the portal/API?: Yes Did the patient sign up for the portal?: No CODE STATUS:: Full Code INSURANCE COVERAGE / FINANCIAL ISSUES:: [facility] [employer] CURRENT HOME/COMMUNITY SERVICES/EQUIPMENT:: None, currently. Does engage in bone builders class when available. PRIMARY CARE PHYSICIAN:: Eligio Maddox POTENTIAL DISCHARGE NEEDS:: Follow up appointments. PATIENT/FAMILY EDUCATION NEEDS:: Review discharge instructions, discuss Ask Me Three. ANTICIPATED BARRIERS TO DISCHARGE:: None identified. TRANSPORTATION:: Via private vehicle with family or a friend. PLAN:: Noy continues to be closely monitored and treated by surgical services. She was taken to the OR today and admitted to the ICU post operatively. CM was unable to connect with her, but continues to follow. Per surgeon, anticipate open wound with wound vac. Noy will require evaluation for discharge planning considerations dependent on physical functioning, self care ability and care needs.
--- NOTE | 2021-02-20 09:36 | HPE_ITS ---
Date of service: 02/20/21 Time of Service: 09:36 Assessment and Plan Assessment and plan (1) Intussusception of colon: Status: Acute Assessment and plan: Informed consent is obtained for the procedural (explained in simple layman's terms that the pt and/or family could understand) explaining risks vs benefits and alternatives to the procedure and consequences if we do not do the procedure. Risks include but are not limited to:bleeding,infections, pneumonia, blood clots/DVT/PE, anesthesia(aspiration, damage to teeth/airway/CO/CVA//prolonged mechanical ventilation/PTX/IV infections), damage to bowel, bladder,blood vessels, ureters, bile ducts. Damage to solid organs requiring removal. Wound infections requirng further surgery. Scarring and disfigurement. Subsequent bowel obstructions from scar tissue. Patient evaluated colostomy or ileostomy. She is at risk of complications from anesthesia because of her age. Although she is quite fit for surgery from a cardiopulmonary standpoint. She will most likely have a open wound with wound VAC. We will place epidural for postop pain control. We will keep her in ICU postoperatively. Reviewed the case with anesthesia. Her labs appear much better today but she may require further blood transfusions I did discuss the case with her daughter Morelia as well and answered all the questions she had to her satisfaction Preparations are being undertaken to take patient to the OR. 60 ,ims spent in counseltation This document was created with voice activated software and may contain errors (2) Anemia: Status: Chronic History of Present Illness Consults Consult date: 02/20/21 Narrative: pt is an 86 y/o female whole was in her normal state of good health when she woke up morning with abdominal pain. She states prior to morning she had no problems moving her bowels. She has not noticed any blood in her stools. She has not experienced any weight loss. She is active and has no chest pain or shortness of breath with activities. She was admitted last night after finding intussusception on CT scan. She also had a profound anemia at 6.4 and received 2 units of blood. Today she is not feeling any better and is still having significant abdominal pain. She has no fever no white count. She says states she is not passing gas. And any overt bleeding overnight. I did review her labs and x-ray today. Review of Systems All systems reviewed & are unremarkable except as noted in HPI and below PFSH Medical History Hiatal hernia Large on CT 02/19/21 Hyperlipidemia Osteoarthritis Family History Mother , GI BLEED at age 86. Essential hypertension Father , age 79 Pulmonary fibrosis CHF (congestive heart failure) Heart disease Sister , age 72 Essential hypertension Hyperlipidemia Liver cancer Maternal Grandfather No problems noted. Paternal Grandfather No problems noted. Maternal Grandmother Cancer Paternal Grandmother No problems noted. Brother , age 80? Pancreatic cancer Brother , age 60? Heart disease Sister No problems noted. Social History Smoking/Tobacco Use Status: Never Smoking risk assessment performed?: Yes Alcohol Intake: never Drug use: Never Substance use type: does not use Caregiver/Support person: No Household members: none Communication Needs: None Do you need help understanding health information?: Never Pets and animals: No Sexually active: No Do you think of yourself as: straight/heterosexual What is your relationship status?: How often do you talk on the phone with friends or family?: three or more times per week How often do you get together with friends or relatives?: three or more times per week How often do you attend judaism or yazidi services?: 1-3 times per year Do you belong to any clubs or organized social groups?: no Panel score (0-1 are the most socially isolated patients): 1 What type of physical activity do you participate in: other Details: [employer] and decline to answer Duration: decline to answer Frequency: 1-2 times per week Johanne/Orthodox: No preference Special johanne needs: No Seatbelt use: always Helmet use: Yes Helmet use: always 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 Do you feel safe at home: Yes Do you feel safe in your relationship?: Yes Meds Allergies and Home Medications Allergies Allergy/AdvReac Type Severity Reaction Status Date / Time No Known Allergies Allergy Verified 02/19/21 17:15 Home Medications Medication Instructions Recorded Confirmed Type Centrum Silver Tablet 1 ea PO DAILY 01/13/13 02/19/21 History cholecalciferol (vitamin D3) 800 unit PO DAILY 09/14/16 02/19/21 History [Vitamin D3] Aspirin/Acetaminophen/Caffeine 1 ea PO PRN PRN 02/23/17 02/19/21 History [Excedrin Extra Strength Caplet] Exam Const General: cooperative, healthy appearing, comfortable, no acute distress, well developed and well groomed Nutritional Appearance: average body habitus and well nourished Orientation: alert, awake and oriented x3 [facility] Head: normal to inspection, normocephalic and atraumatic Ears: hearing grossly normal bilaterally and external ears normal General nose exam: external nose normal Face and sinus: normal facial exam and sinuses nontender Mouth: oral mucosae normal, lip normal, tongue normal and moist mucous membranes Teeth and gingiva: dentition normal Eyes General: appearance normal, both eyes and all related structures Conjunctivae: conjunctivae normal Sclera: sclerae normal Pupils: PERRL Neck Neck: normal visual inspection and full ROM Chest Chest: normal inspection of the chest Resp Effort & Inspection: normal respiratory effort, able to speak in complete sentences, no cough, no nasal flaring, not tachypneic and no use of accessory muscles Auscultation: clear to auscultation bilaterally, no rales, no rhonchi and no wheezes Cardio Jugular venous pressure: no JVD Rate: regular rate Rhythm: regular rhythm GI Inspection: normal to inspection, no edema and distended Palpation: soft, mass, tender and No ascites Auscultation: hypoactive bowel sounds Other: She has localized rebound and guarding in the right lower quadrant. She is not passing any flatus. She has minimal bowel sounds. Skin General skin exam: no rashes or lesions noted Trauma: no lacerations or abrasions Neuro General: patient alert, patient oriented x3, oriented, gait normal, moves all extremities, no focal motor deficits and CN's II-XI intact bilaterally Cognition: normal cognition Speech: speech normal Gait: normal gait Motor: muscle tone normal throughout Extrem General: normal to inspection and no clubbing, cyanosis or edema Other: Changes consistent with osteoarthritis Psych Appearance: grossly normal and well kempt Mental Status: mental status grossly normal Speech and Movement: speech and movement normal Affect: normal affect Results Labs Result diagrams: 02/20/21 06:40 02/20/21 06:40 Labs: Laboratory Results - last 24 hr 02/19/21 02/19/21 02/19/21 17:23 17:23 17:23 WBC 6.81 RBC 3.26 L Hgb 6.4 L* Hct 23.7 L MCV 72.7 L MCH 19.6 L MCHC 27.0 L RDW 19.0 H Plt Count 349 MPV 11.1 H Immature Gran % 0.1 Neutrophils % 58.1 Lymphocytes % 30.7 Monocytes % 9.0 Eosinophils % 1.8 Basophils % 0.3 Nucleated RBC % 0 Absolute Neutrophils 3.96 Absolute Lymphocytes 2.09 Absolute Monocytes 0.61 Absolute Eosinophils 0.12 Absolute Basophils 0.02 RBC Morphology See Below Polychromasia Present Hypochromasia 2+ Poikilocytosis 1+ Microcytosis 2+ Sodium 139 Potassium 3.8 Chloride 103 Carbon Dioxide 27.0 Anion Gap 9.0 BUN 22 H Creatinine 1.0 Estimated GFR/1.73 m2 52.82 Glucose 104 Calcium 9.4 Magnesium 2.3 Iron TIBC Transferrin % Sat Ferritin Total Bilirubin 0.3 AST 12 L ALT 16 Alkaline Phosphatase 136 H Total Protein 7.6 Albumin 3.5 COVID-19 Source SARS-CoV-2 (PCR) Patient ABO/Rh Antibody Screen Crossmatch 02/19/21 02/19/21 02/19/21 17:23 17:23 17:23 WBC RBC Hgb Hct MCV MCH MCHC RDW Plt Count MPV Immature Gran % Neutrophils % Lymphocytes % Monocytes % Eosinophils % Basophils % Nucleated RBC % Absolute Neutrophils Absolute Lymphocytes Absolute Monocytes Absolute Eosinophils Absolute Basophils RBC Morphology Polychromasia Hypochromasia Poikilocytosis Microcytosis Sodium Potassium Chloride Carbon Dioxide Anion Gap BUN Creatinine Estimated GFR/1.73 m2 Glucose Calcium Magnesium Iron 10 L TIBC 418 Transferrin % Sat 2 L Ferritin 7 L Total Bilirubin AST ALT Alkaline Phosphatase Total Protein Albumin COVID-19 Source SARS-CoV-2 (PCR) Patient ABO/Rh A Positive Antibody Screen NEGATIVE Crossmatch See Detail 02/19/21 02/20/21 02/20/21 20:15 06:40 06:40 WBC RBC Hgb Hct MCV MCH MCHC RDW Plt Count MPV Immature Gran % Neutrophils % Lymphocytes % Monocytes % Eosinophils % Basophils % Nucleated RBC % Absolute Neutrophils Absolute Lymphocytes Absolute Monocytes Absolute Eosinophils Absolute Basophils RBC Morphology Polychromasia Hypochromasia Poikilocytosis Microcytosis Sodium 139 Potassium 3.7 Chloride 105 Carbon Dioxide 25.0 Anion Gap 9.0 BUN 13 D Creatinine 0.8 Estimated GFR/1.73 m2 >= 60.00 Glucose 97 Calcium 8.7 Magnesium 2.1 Iron TIBC Transferrin % Sat Ferritin Total Bilirubin AST ALT Alkaline Phosphatase Total Protein Albumin COVID-19 Source Nasal/Nares SARS-CoV-2 (PCR) Negative Patient ABO/Rh Antibody Screen Crossmatch 02/20/21 06:40 WBC 6.76 RBC 4.06 Hgb 9.2 L D Hct 31.2 L D MCV 76.8 L D MCH 22.7 L MCHC 29.5 L RDW 20.2 H Plt Count 305 MPV 11.6 H Immature Gran % 0.3 Neutrophils % 64.4 Lymphocytes % 23.7 Monocytes % 9.6 Eosinophils % 1.9 Basophils % 0.1 Nucleated RBC % 0 Absolute Neutrophils 4.35 Absolute Lymphocytes 1.60 Absolute Monocytes 0.65 Absolute Eosinophils 0.13 Absolute Basophils 0.01 RBC Morphology Polychromasia Hypochromasia Poikilocytosis Microcytosis Sodium Potassium Chloride Carbon Dioxide Anion Gap BUN Creatinine Estimated GFR/1.73 m2 Glucose Calcium Magnesium Iron TIBC Transferrin % Sat Ferritin Total Bilirubin AST ALT Alkaline Phosphatase Total Protein Albumin COVID-19 Source SARS-CoV-2 (PCR) Patient ABO/Rh Antibody Screen Crossmatch Last Vital Signs Temp 36.7 C 02/20/21 07:13 Pulse 74 02/20/21 07:13 Resp 16 02/20/21 07:13 BP 149/87 H 02/20/21 07:13 Pulse Ox 96 02/20/21 07:13
[2021-02-20] MEDS: Lactated Ringers 1,000 ML 30 ML IV (09:52)
--- NOTE | 2021-02-20 10:30 | BOWEL_PTH ---
PATIENT: Noy Wheeler LOC: U#:[id number] AGE/SX: 86/F ROOM: RE02/19/[address]: Bárbara Mulligan : 1935 BED: A DIS: 02/26/2021 SPEC #: [id number] RECD: 02/20/21 13:03 STATUS: FABIOLA REQ #: [id number] CRAIG: 02/20/21 10:[address]: Bárbara Mulligan DEPT: Surgical Specimen RECD BY: Sissy Anaya ENTERED: 02/20/21 13:04 SP TYPE: Bowel OTHR DR: Eligio Maddox MD Tissues: 1 - BOWEL RESECTION(OTHER) 2 - BOWEL RESECTION(OTHER) Procedures: IMMUNOPEROXIDASE STAIN GROSS AND MICRO LEVEL 5 GROSS AND MICRO LEVEL 6 MLH1 Hypermethylation Slide Review Comments: [id number]
[2021-02-20] MEDS: Lactated Ringers 250 ML 500 ML IV (10:40)
--- NOTE | 2021-02-20 11:30 | PAPNONF_PTH ---
PATIENT: Noy Wheeler LOC: [id number]#:[id number] AGE/SX: 86/F ROOM: 205 RE02/19/[address]: Bárbara Mulligan : 1935 BED: A DIS: 02/26/2021 SPEC #: [id number] RECD: 02/20/21 13:07 STATUS: FABIOLA REQ #: [id number] CRAIG: 02/20/21 11:[address]: Bárbara Mulligan DEPT: [facility] Cytology RECD BY: Sissy Anaya ENTERED: 02/20/21 13:08 SP TYPE: JIN VILLALOBOS DR: Eligio Maddox MD Tissues: 1 - BODY FLUID CYTO(NOT S/U/N/EM)[facility] Procedures: BODY FLUID CYTO(NOT SPU/UR/NIP/ENDOM)[facility] Comments: [id number] (TOTAL VOLUME = 2.5 ml, SENT FRESH)
[2021-02-20] MEDS: Bupivacaine 0.25% Pres-Free 30 ML VIAL (12:01)
--- NOTE | 2021-02-20 12:29 | W.PM.OP ---
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 cystic mass in small bowel PROCEDURE: right hemicolectomy and excision of ileum SURGEON: Bárbara Mulligan BI[employer] PRODUCT MANAGER: Nii Nolan ANESTHESIA TYPE: Local By Surgeon, General LMA/ETT and Epidural Refer to Anesthesia Record ESTIMATED BLOOD LOSS: 100 PATHOLOGY: other Patient was transported to: PACU Patient's condition: stable Procedure Description: The abdomen was prepped and draped in the usual sterile fashion. Prior to even draping you could notice and palpate a sausage shaped mass in the right lower quadrant. Timeout was performed. Patient did receive antibiotics. A midline laparotomy incision was made with a #10 blade scalpel and subcutaneous tissues were with electrocautery down to the anterior abdominal fascia. Once divided, the intraabdominal cavity was accessed and bowel was protected as the rest of the abdominal wall was opened in the midline. The liver is normal in appearance and there are no palpable masses. The gallbladder is free of stones. The NG tube is in good position there is no masses in the stomach and the spleen is intact. The uterus and ovaries are atrophic. There are no masses on the the small bowel was run. This appears to be normal. The rest of the colon is palpated and appears to be normal. She has a few diverticula in the sigmoid colon; there is no signs of any bleeding. The intussusception is reduced. There does appear to be a mass within the cecum. Next, the small bowel was retracted with digital exploration. there was a evidence of a mass at the cecum. With mobilization of the colon along the line of Toldt down to the right gutter, the entire ileocecal region up to the transverse colon was mobilized into the field. Next, a window was made 5 inches from the ileocecal valve and a FANY-have 60 was fired across the ileum. Next, a second FANY device was fired across the proximal transverse colon, just sparring the middle colic artery. The dissection was then carried down along the mesentry, down to the root of the mesentry. Several lymph nodes were sampled. The mesentry vessels are hemostated and tied with #0-silk suture sequentially, ligated in between. Once this specimen was submitted to pathology, the wound was inspected. There was no evidence of bleeding from any of the suture sites. Next, a [id number] anastomosis was performed between the transverse colon and the terminal ileum. A TA 60 was fired [id number] and was used to close the anastomosis. A patent anastomosis was palpated. The anastomosis was then protected with a #2-0 Vicryl #0-muscular suture. Next, the mesenteric root was closed with a running #0-Vicryl suture to prevent any chance of internal hernia. The suture sites were inspected and there was no evidence of leakage. Next, the intraabdominal cavity was thoroughly irrigated with sterile saline and the anastomosis was carried into the right lower gutter. Once we have the anastomosis completed I did notice on the proximal limb of the ileum that there is a cystic shaped mass. It is clear cystic fluid. Appears to be only attached to the serosa and does not invade into the mucosa there is no signs of mucinous tumor anywhere else there is no mucin in the body cavity there is no fluid in the body cavity I did open in the cecum and this looks strictly like a adenocarcinoma. However at this time I am uncomfortable leaving this in situ, and another 10 inches of jejunum is sacrificed and the anastomosis is recreated in the same way using a TA 70. Using bowel clamps to prevent spillage. And completing the anastomosis with a TA 60. The anastomosis is reinforced with silk at the ends of the staple with 2-0 silk suturing to oversew the ends of the staple line. The anastomosis is pink and healthy. There is no signs of any bleeding. And again the mesenteric defect was closed with 2-0 silk. There is no size match mismatch between the bowel. Sheath there is no significant hypotension during the case. She is fairly healthy and only on cholesterol medication. She is fairly active. She is not a smoker. She is not diabetic. She does not have an extensive history of heart disease or kidney disease. There was no intra-abdominal sepsis upon opening. Everything was contained. We did not spill anything creating the anastomosis. So I did do a primary anastomosis and I did elect to not do a diverting ileostomy. omentum was used to cover the intestines which appeared dilated and indurated from the near obstruction. 2 pieces of Interceed are placed to prevent adhesions. Next, the abdominal wall was reapproximated and the fascial layer using a two running loop PDS sutures meeting in the middle with good approximation of both the abdominal fascia. Additional sterile saline was used to irrigate the subcutaneous fat and then the skin was closed with sequential sterile constantino. The skin was very loosely approximated. Beta sign soaked pledgets were placed between the constantino. Again there was no gross contamination of the abdominal cavity. There is no purulent drainage. Washings were done and sent for cytology based on the finding of the cystic mass on the ileum. Sterile dressing was applied and the skin was cleansed and the patient was awakened from anesthesia without difficulty and extubated in the Operating Room and she was transferred to Recovery Room in stable condition and will be continued to be monitored in the icu with triple antibiotics and NG decompression.
--- NOTE | 2021-02-20 12:43 | W.ANESPOSTOP ---
Postoperative Evaluation Date, Time and Location Date Performed: 02/20/21 Time Performed: 12:43 Patient Location: PACU Vital Signs Most Recent Imported Vital Signs: Most Recent Vital Signs Temp Pulse Resp BP Pulse Ox 36.2 C L 64 13 170/82 H 100 02/20/21 12:29 02/20/21 12:29 02/20/21 12:29 02/20/21 12:29 02/20/21 12:29 Pain Score Most Recent Pain Score: Most Recent Pain Score Pain Level 0 02/20/21 12:43 Assessment Mental Status: Arousable with meaningful communication Airway and Respiratory Function: Patent airway with normal (patient baseline) respiratory exam Cardiovascular Function: Hemodynamically Stable Hydration Status: Adequately Hydrated Nausea & Vomiting: No Nausea or Vomiting Pain: Pt. Denies Any Pain Peripheral Nerve Block: Patient did not receive a nerve block Postoperative Comments:: Epidural working well.
--- NOTE | 2021-02-20 12:58 | W.ANESNEU ---
Epidural/Spinal Catheter Date Performed: 02/20/21 Procedure Start: 08:20 Procedure Stop: 08:45 Requesting Provider: Bárbara Mulligan Procedure Location: PACU Reason Performed: Postoperative Analgesia Standard Monitors Applied: Blood Pressure and SpO2 Patient Position: Sitting Sedation Given (Indicate Dose Given): No Sedation given Patient Mental Status: Awake Sterility: Hand Hygiene, Surgical Cap, Surgical Mask, Sterile Gloves, Sterile Drape/Sheet and Chlorhexidine Procedure Location: L2-L3 Interspace Epidural Needle: Tuohy 18 Gauge Needle Length: 3.5 Inch Needle Approach: Midline Epidural Procedure: Skin Prepped, Sterile Drape Placed, 1% Lidocaine to skin and subcutaneous tissue with 25G needle, Tuohy Needle placed, SARA to Saline Used, Epidural Catheter Placed, Negative Heme, Negative CSF Flow and Tuohy Needle Removed Catheter Placed?: Catheter Placed Test Dose (Indicate Dose Given): 3ml 1.5% Lidocaine with 1:200K Epinephrine Given and Negative Test Dose Loss of Resistance Depth (cm): 5 Catheter depth at skin (cm): 12 Dressing: Sorbaview Dressing Placed, Mastisol Used and Dressing reinforced with Tape Epidural Provider Bolus (Indicate Dose Given): None Given Additives (Indicate Dose Given ): None Infusion Medication: No Infusion Started Block Level: N/A Paresthesia: None Ultrasound: Not Used Number of Attempts (See previous attempts in note section): 2 Procedure Tolerated: No Complications and Patient tolerated well Procedure Outcome: Successful Procedure Comment:: First attempt at 1 interspace below, soft tissues wiht poor SARA. Decision to move up a space with success. Performed By: Kimani Schultz
[2021-02-20] MEDS: FentaNYL/ROPIvacaine 2 mcg/ml and 0.1% 200 ML CADD Cassette EP (13:30)
[2021-02-20] MEDS: ACETAMINOPHEN 1,000 MG/100 ML BTL 400 MG IVPB ×2 (14:08→19:40)
--- NOTE | 2021-02-20 14:37 | PHA.REVIEW ---
Pharmacy Admission Review - Admission Clinical Review (Last Reviewed 02/20/21 @ 09:39 by Bárbara Mulligan DO) Intussusception of colon (Acute) Abdominal pain (Acute) Osteoporosis (Acute) Osteoarthritis of hand (Acute 02/01/14) Hyperlipidemia with target LDL less than 100 (Acute 01/26/13) No Known Allergies Allergy (Verified 02/19/21 17:15) Resuscitation Status Full Code Height 5 ft 4 in Weight 53.524 kg - Renal Dosing Renal Dosing: BUN 13 mg/dL (7-18) D 02/20/21 06:40 Creatinine 0.8 mg/dL (0.55-1.02) 02/20/21 06:40 Medications needing adjustments: Reviewed List of meds needing interventions: eCrCl 44.23 ml/min - Anticoagulation Anticoagulation: Hgb 9.2 g/dL (11.2-15.7) L D 02/20/21 06:40 Hct 31.2 % (36.0-46.0) L D 02/20/21 06:40 Plt Count 305 10^3/uL (130-400) 02/20/21 06:40 Creatinine 0.8 mg/dL (0.55-1.02) 02/20/21 06:40 DVT Prophylaxis: N/A (postop day 0, anticipate start tomorrow) - Opiate Usage Evaluate Pain Scale/Pains Meds: Reviewed (epidural active) - Relevant Labs Sodium 139 mmol/L (136-145) 02/20/21 06:40 Potassium 3.7 mmol/L (3.5-5.1) 02/20/21 06:40 Chloride 105 mmol/L (98-107) 02/20/21 06:40 Magnesium 2.1 mg/dL (1.8-2.4) 02/20/21 06:40 Electrolytes, C-Reactive P, ESR: Reviewed - DM Control DM Control: Glucose 97 mg/dL (74-106) 02/20/21 06:40 Insulin Dosing: Reviewed - BP Control BP Control: Blood Pressure [Right Arm] 117/71 Blood Pressure 138/75 Blood Pressure 170/82 Blood Pressure 161/74 Blood Pressure 143/71 Blood Pressure 142/77 Blood Pressure 149/87 Blood Pressure 151/83 If elevated: Reviewed - Qtc Review If Elevated: Reviewed (QTc 482) - IV to PO Switch IV Medications: Reviewed - Home Meds Home Med List reviewed: Reviewed - Current meds Current Medication Order Review: Reviewed (extended infusion Pip/[place] 3.375 q8h started 02/19 @ 2200)
--- NOTE | 2021-02-20 15:26 | W.PM.PROGNOT ---
Date of Service Date of service: 02/20/21 Time of Service: 15:26 Assessment and Plan Assessment and plan (1) Colon cancer: Status: Chronic Assessment and plan: The patient is doing well post-op. Pt is sleeping soundly adn info taken from RN. Their pain is well controlled. They are having no nausea or vomiting. The pt is not having any chest pain or SOB, productive cough; no calf pain or swelling. The pt is making good urine. The pt pain is adequately controlled. The case was discussed with nursing and patient?s progress reviewed. All of the pt's home medications were addressed and adjusted accordingly for their oral intact status. She has had minimal out of NGT- billous. HEENT: no jaundice. no eye pain/drainage/redness/swelling. Mild sore throat Cardio- NSR no chest pain, BP stable. Pulm: no sob or productive cough. no hemoptysis Incision- clean/dry. Dressing intact no excessive bleeding or drainage I discussed with the patient and/or there family about the findings in surgery and the pt's progress. We reviewed expectations for progress in the hospital; what the pt could expect for recovery time and length of stay. We discussed the importance of walking and pulmonary toilet to avoid blood clots and pneumonia. Continue current plans for pulmonary toilet, GI and DVT prophylaxis. We shall continue the current plan for pain management as it is at an appropriate level, and working well for the pt. Appropriate measures will be taken for constipation prevention, and this was also reviewed with the pt. The wound care plan was reviewed with nursing as well. see orders -abx: zosyn. no abdominal contamination or perforation/spillage. ? d/c in am entereg PPI lovenox epidural per anesthesia. prob d/c on Tuesday PT- as pt tolerates pulm toilet local wound care I did contact pt daughter Morelia and d/w her mothers prognosis (2) Intussusception of colon: Status: Acute (3) Osteoporosis: Status: Acute (4) Osteoarthritis of hand: Status: Acute (5) Hyperlipidemia with target LDL less than 100: Status: Acute (6) Iron deficiency anemia due to chronic blood loss: Status: Acute (7) Mass of small intestine: Status: Acute Objective Last Vital Signs Temp 36.1 C L 02/20/21 13:44 Pulse 73 02/20/21 13:44 Resp 10 L 02/20/21 15:16 BP 117/71 02/20/21 13:44 Pulse Ox 93 02/20/21 15:16 Laboratory Results - last 24 hr 02/19/21 02/19/21 02/19/21 17:23 17:23 17:23 WBC 6.81 RBC 3.26 L Hgb 6.4 L* Hct 23.7 L MCV 72.7 L MCH 19.6 L MCHC 27.0 L RDW 19.0 H Plt Count 349 MPV 11.1 H Immature Gran % 0.1 Neutrophils % 58.1 Lymphocytes % 30.7 Monocytes % 9.0 Eosinophils % 1.8 Basophils % 0.3 Nucleated RBC % 0 Absolute Neutrophils 3.96 Absolute Lymphocytes 2.09 Absolute Monocytes 0.61 Absolute Eosinophils 0.12 Absolute Basophils 0.02 RBC Morphology See Below Polychromasia Present Hypochromasia 2+ Poikilocytosis 1+ Microcytosis 2+ Sodium 139 Potassium 3.8 Chloride 103 Carbon Dioxide 27.0 Anion Gap 9.0 BUN 22 H Creatinine 1.0 Estimated GFR/1.73 m2 52.82 Glucose 104 Calcium 9.4 Magnesium 2.3 Iron TIBC Transferrin % Sat Ferritin Total Bilirubin 0.3 AST 12 L ALT 16 Alkaline Phosphatase 136 H Total Protein 7.6 Albumin 3.5 COVID-19 Source SARS-CoV-2 (PCR) Patient ABO/Rh Antibody Screen Crossmatch 02/19/21 02/19/21 02/19/21 17:23 17:23 17:23 WBC RBC Hgb Hct MCV MCH MCHC RDW Plt Count MPV Immature Gran % Neutrophils % Lymphocytes % Monocytes % Eosinophils % Basophils % Nucleated RBC % Absolute Neutrophils Absolute Lymphocytes Absolute Monocytes Absolute Eosinophils Absolute Basophils RBC Morphology Polychromasia Hypochromasia Poikilocytosis Microcytosis Sodium Potassium Chloride Carbon Dioxide Anion Gap BUN Creatinine Estimated GFR/1.73 m2 Glucose Calcium Magnesium Iron 10 L TIBC 418 Transferrin % Sat 2 L Ferritin 7 L Total Bilirubin AST ALT Alkaline Phosphatase Total Protein Albumin COVID-19 Source SARS-CoV-2 (PCR) Patient ABO/Rh A Positive Antibody Screen NEGATIVE Crossmatch See Detail 02/19/21 02/20/21 02/20/21 20:15 06:40 06:40 WBC RBC Hgb Hct MCV MCH MCHC RDW Plt Count MPV Immature Gran % Neutrophils % Lymphocytes % Monocytes % Eosinophils % Basophils % Nucleated RBC % Absolute Neutrophils Absolute Lymphocytes Absolute Monocytes Absolute Eosinophils Absolute Basophils RBC Morphology Polychromasia Hypochromasia Poikilocytosis Microcytosis Sodium 139 Potassium 3.7 Chloride 105 Carbon Dioxide 25.0 Anion Gap 9.0 BUN 13 D Creatinine 0.8 Estimated GFR/1.73 m2 >= 60.00 Glucose 97 Calcium 8.7 Magnesium 2.1 Iron TIBC Transferrin % Sat Ferritin Total Bilirubin AST ALT Alkaline Phosphatase Total Protein Albumin COVID-19 Source Nasal/Nares SARS-CoV-2 (PCR) Negative Patient ABO/Rh Antibody Screen Crossmatch 02/20/21 06:40 WBC 6.76 RBC 4.06 Hgb 9.2 L D Hct 31.2 L D MCV 76.8 L D MCH 22.7 L MCHC 29.5 L RDW 20.2 H Plt Count 305 MPV 11.6 H Immature Gran % 0.3 Neutrophils % 64.4 Lymphocytes % 23.7 Monocytes % 9.6 Eosinophils % 1.9 Basophils % 0.1 Nucleated RBC % 0 Absolute Neutrophils 4.35 Absolute Lymphocytes 1.60 Absolute Monocytes 0.65 Absolute Eosinophils 0.13 Absolute Basophils 0.01 RBC Morphology Polychromasia Hypochromasia Poikilocytosis Microcytosis Sodium Potassium Chloride Carbon Dioxide Anion Gap BUN Creatinine Estimated GFR/1.73 m2 Glucose Calcium Magnesium Iron TIBC Transferrin % Sat Ferritin Total Bilirubin AST ALT Alkaline Phosphatase Total Protein Albumin COVID-19 Source SARS-CoV-2 (PCR) Patient ABO/Rh Antibody Screen Crossmatch
--- NOTE | 2021-02-20 15:45 | NT_ITS ---
Date of service: 02/20/21 Time of Service: 15:45 PT Notes Visit Reasons: Colonic Intussception Patient just came in to the ICU from surgery about two hours ago and is not yet appropriate for PT evaluation. Nurse stated that patient is still sedated and is not ready to be seen yet. Will plan on relaying to on-call PT regarding PT evaluation tomorrow morning for said patient. Please coordinate with nurse regarding pre-medication for pain prior to visit. Thank you for the opportunity to participate in the care of this patient. Sofia Larios PT, DPT, CLT [facility] [place], [place]
[2021-02-20] MEDS: IRON SUCROSE COMPLEX 200 MG in Normal Saline 100 ML 400 MG IVPB (18:00)
--- NOTE | 2021-02-20 21:17 | W.PM.PROGNOT ---
Date of Service Date of service: 02/19/21 Time of Service: 21:00 Assessment and Plan Assessment and plan (1) Intussusception of colon: Status: Acute Assessment and plan: abx bowel rest hydration pain management -if not resolved in am=OR for ex lap and resection. possible colostomy (2) Anemia: Status: Chronic Assessment and plan: transfuse 2 units PRBC in total PPI cbc in am no anti-coags anemia - concern that there could be a cancer which has been bleeding is the lead point/ cause of the intusception. I would not expect the pt to have a hgb this low w/ an acute intussecption and not be having profuse bloody diarrhea. This is concern that there is a right sided malignancy causing the intusscpetion. if this does resolve- she will at least require a CE for evaluation of tumor. (3) Hyperlipidemia with target LDL less than 100: Status: Acute (4) Osteoarthritis of hand: Status: Acute (5) Osteoporosis: Status: Acute Subjective Subjective Interval history since last seen: I did personaly review her CT. pt notes states this has been ongoing for <24 hrs. She denies any cahnges in her bowels or noting blood in her stools r wt loss. She has never had a CE (at least at [facility]). Per the ER PA- pt pain is intermittent/colicky, and comes and goes. no vomiting. No bloody diarrhea. She has no fever/elevated WBC. She has mild pain on PE and no peritoneal signs. Will admit for hydration adn pain control. if not improved in am - OR Objective Last Vital Signs Temp 36.8 C 02/20/21 20:03 Pulse 67 02/20/21 19:31 Resp 12 02/20/21 19:31 BP 152/75 H 02/20/21 19:31 Pulse Ox 95 02/20/21 19:31 Laboratory Results - last 24 hr 02/19/21 02/19/21 02/19/21 17:23 17:23 17:23 WBC RBC Hgb Hct MCV MCH MCHC RDW Plt Count MPV Immature Gran % Neutrophils % Lymphocytes % Monocytes % Eosinophils % Basophils % Nucleated RBC % Absolute Neutrophils Absolute Lymphocytes Absolute Monocytes Absolute Eosinophils Absolute Basophils Sodium Potassium Chloride Carbon Dioxide Anion Gap BUN Creatinine Estimated GFR/1.73 m2 Glucose Calcium Magnesium Iron 10 L TIBC 418 Transferrin % Sat 2 L Ferritin 7 L SARS-CoV-2 (PCR) Patient ABO/Rh A Positive Antibody Screen NEGATIVE Crossmatch See Detail 02/19/21 02/20/21 02/20/21 20:15 06:40 06:40 WBC RBC Hgb Hct MCV MCH MCHC RDW Plt Count MPV Immature Gran % Neutrophils % Lymphocytes % Monocytes % Eosinophils % Basophils % Nucleated RBC % Absolute Neutrophils Absolute Lymphocytes Absolute Monocytes Absolute Eosinophils Absolute Basophils Sodium 139 Potassium 3.7 Chloride 105 Carbon Dioxide 25.0 Anion Gap 9.0 BUN 13 D Creatinine 0.8 Estimated GFR/1.73 m2 >= 60.00 Glucose 97 Calcium 8.7 Magnesium 2.1 Iron TIBC Transferrin % Sat Ferritin SARS-CoV-2 (PCR) Negative Patient ABO/Rh Antibody Screen Crossmatch 02/20/21 06:40 WBC 6.76 RBC 4.06 Hgb 9.2 L D Hct 31.2 L D MCV 76.8 L D MCH 22.7 L MCHC 29.5 L RDW 20.2 H Plt Count 305 MPV 11.6 H Immature Gran % 0.3 Neutrophils % 64.4 Lymphocytes % 23.7 Monocytes % 9.6 Eosinophils % 1.9 Basophils % 0.1 Nucleated RBC % 0 Absolute Neutrophils 4.35 Absolute Lymphocytes 1.60 Absolute Monocytes 0.65 Absolute Eosinophils 0.13 Absolute Basophils 0.01 Sodium Potassium Chloride Carbon Dioxide Anion Gap BUN Creatinine Estimated GFR/1.73 m2 Glucose Calcium Magnesium Iron TIBC Transferrin % Sat Ferritin SARS-CoV-2 (PCR) Patient ABO/Rh Antibody Screen Crossmatch
[2021-02-20] MEDS: Pantoprazole 40 MG VIAL IVP (21:40)
[2021-02-21] VITALS (106 sets, daily range): BP systolic 114–177; BP diastolic 58–101; PULSE 66–137; RESP 9–29; TEMP 36.5–36.9; O2SAT 83–99
[2021-02-21] MEDS: Normal Saline 1,000 ML 125 ML IV ×4 (01:24→21:40)
[2021-02-21] MEDS: FentaNYL/ROPIvacaine 2 mcg/ml and 0.1% 200 ML CADD Cassette EP ×2 (02:49→21:25)
[2021-02-21] MEDS: Normal Saline 500 ML 1000 ML IV (03:25)
--- NOTE | 2021-02-21 03:36 | NUR.NOTE ---
0300-only 50cc's of urine for the 11-7 shift despite very solid BP of 124/78. bladder scan done for 0cc's. Dr. Sreedhar Berry called and notified. Ordered fluid bolus of normal saline
[2021-02-21] MEDS: ACETAMINOPHEN 1,000 MG/100 ML BTL 400 MG IVPB ×3 (04:16→20:14)
--- NOTE | 2021-02-21 04:50 | NUR.NOTE ---
0435-only approx. 10cc's of urine since iv fluid bolus. Dr. Ochoa called and notified. reported BP up to 136/68. Sao2 of 94 to 95% on room air. pt had clear lungs on the 3-11 shift and now has bilateral fine crackles in both bases. lasix ordered received to be given in 1 hour if no more urine
[2021-02-21] MEDS: Furosemide 20 MG/2 ML VIAL 10 MG IVP (05:33)
[2021-02-21 07:02] LABS: Abs Immature Grans 0.03 10^3/uL (0.0-0.06); Absolute Basophil Count 0.01 10^3/uL (0.0-0.2); Absolute Lymphocyte Count 1.57 10^3/uL (1.2-3.4); Absolute Monocyte Count 0.91 10^3/uL (0.1-0.8); Basophils % 0.1; HCT 29.6 % (36.0-46.0); HGB 8.6 g/dL (11.2-15.7); Immature Grans % 0.3; Lymphocytes % 13.9; MCH 22.6 pg (27.0-33.0); MCHC 29.1 % (32.0-36.0); MCV 77.9 fL (80-95); Neutrophils % 77.7; Nucleated RBC 0 %; Platelet Count 272 10^3/uL (130-400); RDW 20.8 % (11.7-14.6); WBC 11.33 10^3/uL (4.4-10.8)
--- NOTE | 2021-02-21 07:19 | NUR.NOTE ---
0700-pt was given 10mg ivp lasix at 0535. urine output at 0700 was 600cc's
[2021-02-21 07:20] LABS: Anion Gap 8.7 mmol/L (3-11); BUN 11 mg/dL (7-18); CO2 24.3 mmol/L (21.0-32.0); Calcium 8.1 mg/dL (8.5-10.1); Chloride 107 mmol/L (98-107); Estimated GFR 52.82 (mL/min/1.73m2); Glucose 77 mg/dL (74-106); Potassium 3.3 mmol/L (3.5-5.1); Sodium 140 mmol/L (136-145)
[2021-02-21 07:21] LABS: Magnesium 2.3 mg/dL (1.8-2.4)
--- NOTE | 2021-02-21 08:18 | W.ANESEPD ---
Epidural/Spinal Daily Note Date Performed: 02/21/21 Assessment Time: 08:22 Patient Location: Intensive Care Unit Catheter Type in Place: Epidural Catheter Dressing Assessment: Dressing intact with good adherence Catheter Assessment: Catheter Labeled and Intact and Functioning Previous Catheter Depth Noted (cm): 12 Current Catheter Depth (cm): 12 Current Medication Infusion: Ropivacaine 0.1% with Fentanyl 2mcg/ml Current Maintenance Infusion Rate (ml/hour): 10 Current PCEA Bolus Dose (ml): 5 Current Pain Score (0-10): 0 Medication Infusion Stopped, Catheter Removal Planned: No Sensory / Motor Block Comments: Patient reports good sensory coverage of surgical site, comfortable resting in bed. Plan to leave infusion at same rate through the weekend if patient tolerates and site remains clean and intact. New Bolus Given or Change in Infusion Made: No Completed By: Mariposa Glass
[2021-02-21] MEDS: POTASSIUM CHLORIDE 10 MEQ/100 ML BAG 100 MEQ IVPB (08:59)
[2021-02-21] MEDS: Enoxaparin 40 MG/0.4 ML SYR SC (08:59)
--- NOTE | 2021-02-21 09:50 | PT.INIE ---
Date of service: 02/21/21 Time of Service: 09:20 PT Notes Visit Reasons: Colonic Intussception Inpatient Physical Therapy Evaluation Date: February 21, 2021 Referring Doctor: Bárbara Mulligan PT Orders: PT CONSULT Precautions: Standard Patient Profile/Admitting Diagnosis: Noy is an 86 y/o female who was in her normal state of good health until she woken morning with abdominal pain. She states prior to morning she had no problems moving her bowels. She has not noticed any blood in her stools. She has not experienced any weight loss. She is active and has no chest pain or shortness of breath with activities. She was admitted night after finding intussusception on CT scan. She also had a profound anemia at 6.4 and received 2 units of blood. She is s/p hemicolectomy and excision of ileum. PMHX: Hiatal hernia Large on CT 02/19/21 Hyperlipidemia Osteoarthritis Social History/Home Situation: Noy lives in a private mobile home. She reports independence at baseline. Remains active with [employer] class. She declines any use of assistive device. She has 4 stairs to enter her home. Current Functional Limitations: Abdominal pain with functional transfers Equipment Owned/DME: None Subjective: Noy is sitting up in bed agreeable to PT consult this morning. States resting in bed she has no pain. Is agreeable to get up into bedside chair this morning. Objective: General Observation: IV R UE, cathetar, telemetry, epidural for pain management. Mental Status: Alert and oriented x3 Pain: 0/10 at rest, 5/10 post transfer to bedside chair Vital Signs: BP 117/93 mmHg; HR 78 bpm, O2 sat 98% on room air ROM: Right Upper Extremity: Demonstrates grossly WFL AA R UE ROM. Left Upper Extremity: AROM WFL Right Lower Extremity: AROM WFL Left Lower Extremity: AROM WFL Strength: Right Upper Extremity: Demonstrates grossly 4-5/5 R UE strength Left Upper Extremity: Demonstrates grossly 5/5 L UE strength Right Lower Extremity: Hip flexion 4/5, knee extension/flexion 5/5, DF 5/5 Left Lower Extremity: Hip flexion 4/5, knee extension/flexion 5/5, DF 5/5 Sensation: Intact light touch bilateral LE Bed Mobility/Transfers: Supine-sit: HOB 45 degrees, supervision, noted mild increase in abdominal pain Sit-stand: supervision with use of FWW Stand-sit: supervision with cueing for proper hand placement Bed-chair: supervision with use of FWW- utilized minimally Gait: FWW, Full weightbearing, SBA bed to chair Balance: Static Sitting: Normal Dynamic Sitting: Normal Static Standing: Good Dynamic Standing: Good Special Tests: Mobility Limitations Standardized Measure [facility] AM-PAC 6 clicks Basic Mobility Inpatient Short Form: Raw Score: 18 CMS Score: 46% Informed Consent/Education: Patient instructed in purpose of PT consult and plan of care. Assessment: Patient is a 86 year old female referred to physical therapy services with the diagnosis of intussusception. Patient presents with clinical signs and symptoms consistent with diagnosis s/p hemicolectomy, as demonstrated by the following impairment level findings: impaired abdominal strength, limited functional endurance. Impairments are contributing to the following functional limitations: limited standing tolerance, walking tolerance, abdominal pain with transfers Patient is assessed as a Moderate 47367 complexity based on the following: History: As above Examination: As above Presentation: Evolving Decision Making: Moderate Goals: Goals X1 week 1. Supine-Sit independent 2. Sit-Supine independent 3. Sit-Stand independent 4. Stand-Sit independent 5. Bed-Chair independent with least restrictive assistive device 6. Chair-Bed independent with least restrictive assistive device 7. Gait independent with least restrictive assistive device 200 ft or greater 8. Stairs able to ascend descend 4 stairs independently with use of bilateral railing Plan of Care/Treatment Plan: 1-2x/day, 7 days/week x 1 week. Plan of care has been reviewed with the [employer] providing the service under Physical Therapy direction. Initiate Physical Therapy intervention for strengthening, bed mobility, transfers, gait, stairs, balance training, use of assistive device. DISCHARGE RECOMMENDATIONS: Home with Home Health Services TREATMENT CODE/[place]: [place] [id number] 20 minutes 9:20 am JOSE LUIS King [facility] Disclaimer: This note was created using [employer] voice recognition software. It was reviewed for major content. However, there may be multiple small discrepancies and errors due to the voice recognition aspects of the software.
--- NOTE | 2021-02-21 12:56 | W.PM.PROGNOT ---
Date of Service Date of service: 02/21/21 Time of Service: 12:42 Assessment and Plan Assessment and plan (1) Colon cancer: Status: Chronic Assessment and plan: POD#1 s/p exploratory laparotomy for persistent colonic intussusception secondary to cecal mass excised with small bowel mass and primary anastomosis -Continue current post operative course, NPO with NG tube for decompression until bowel function begins to return -Continue IVF, monitor urine output, blanc while epidural in place -Potassium repleted, will trend daily CMP -DC ABX -Lovenox for DVT ppx -Protonix for GI ppx -Epidural management per anesthesia -PT as tolerated, encourage ambulation and incentive spirometer use -Likely downgrade out of ICU tomorrow if recovery continues expectedly -Pathology pending Qualifiers: Colon location: ascending Qualified Code(s): C18.2 - Malignant neoplasm of ascending colon (2) Mass of small intestine: Status: Acute (3) Iron deficiency anemia due to chronic blood loss: Status: Acute (4) Intussusception of colon: Status: Acute Subjective Subjective Interval history since last seen: Patient reports no complaints, pain is well controlled with epidural, has been up out of bed with assistance. Denies any nausea or vomiting, awaiting return of bowel function. Had low urine output overnight, now much improved. Exam Const General: cooperative, comfortable and no acute distress Resp Effort & Inspection: normal respiratory effort and no audible wheezes Cardio Rate: regular rate Rhythm: regular rhythm GI Inspection: incision (intact with constantino) Palpation: soft and tender (appropriate post op) Percussion: normal to percussion General: other (blanc in place) Objective Last Vital Signs Temp 97.9 F 02/21/21 12:41 Pulse 73 02/21/21 12:41 Resp 12 02/21/21 12:41 BP 151/68 H 02/21/21 12:41 Pulse Ox 95 02/21/21 12:41 Laboratory Results - last 24 hr 02/21/21 02/21/21 02/21/21 06:10 06:10 06:10 WBC 11.33 H D RBC 3.80 L Hgb 8.6 L Hct 29.6 L MCV 77.9 L MCH 22.6 L MCHC 29.1 L RDW 20.8 H Plt Count 272 MPV 11.0 Immature Gran % 0.3 Neutrophils % 77.7 Lymphocytes % 13.9 Monocytes % 8.0 Eosinophils % 0.0 Basophils % 0.1 Nucleated RBC % 0 Absolute Neutrophils 8.80 H Absolute Lymphocytes 1.57 Absolute Monocytes 0.91 H Absolute Eosinophils 0.00 Absolute Basophils 0.01 Sodium 140 Potassium 3.3 L Chloride 107 Carbon Dioxide 24.3 Anion Gap 8.7 BUN 11 Creatinine 1.0 Estimated GFR/1.73 m2 52.82 Glucose 77 Calcium 8.1 L Magnesium 2.3
--- NOTE | 2021-02-21 14:15 | NUR.NOTE ---
Daughter in to visit.
[2021-02-21] MEDS: Normal Saline Flush 10 ML SYR IVP ×2 (17:54→20:15)
--- NOTE | 2021-02-21 18:09 | NUR.NOTE ---
Patient comfortable in bed. No needs identified.
[2021-02-21] MEDS: Pantoprazole 40 MG VIAL IVP (21:02)
[2021-02-22] VITALS (75 sets, daily range): BP systolic 120–180; BP diastolic 51–87; PULSE 68–93; RESP 8–19; TEMP 36.1–37.7; O2SAT 88–99
[2021-02-22] MEDS: ACETAMINOPHEN 1,000 MG/100 ML BTL 400 MG IVPB ×3 (04:01→19:33)
[2021-02-22] MEDS: Ondansetron 4 MG/2 ML VIAL IVP (04:08)
[2021-02-22 07:14] LABS: Abs Immature Grans 0.03 10^3/uL (0.0-0.06); Absolute Basophil Count 0.01 10^3/uL (0.0-0.2); Absolute Eosinophil Count 0.18 10^3/uL (0.0-0.7); Absolute Lymphocyte Count 1.44 10^3/uL (1.2-3.4); Absolute Monocyte Count 0.54 10^3/uL (0.1-0.8); Basophils % 0.1; Eosinophils % 1.9; HCT 30.7 % (36.0-46.0); HGB 8.7 g/dL (11.2-15.7); Immature Grans % 0.3; Lymphocytes % 15.5; MCH 22.5 pg (27.0-33.0); MCHC 28.3 % (32.0-36.0); MCV 79.5 fL (80-95); MPV 10.8 fL (8.0-11.0); Monocytes % 5.8; Neutrophils % 76.4; Nucleated RBC 0 %; Platelet Count 257 10^3/uL (130-400); RBC 3.86 10^6/uL (3.93-5.22); RDW 21.1 % (11.7-14.6); RDW-SD 60.5 fL
[2021-02-22 07:30] LABS: Anion Gap 11.8 mmol/L (3-11); BUN 10 mg/dL (7-18); CO2 22.2 mmol/L (21.0-32.0); CREATININE 0.8 mg/dL (0.55-1.02); Calcium 8.7 mg/dL (8.5-10.1); Chloride 104 mmol/L (98-107); Glucose 62 mg/dL (74-106); Potassium 3.2 mmol/L (3.5-5.1); Sodium 138 mmol/L (136-145)
[2021-02-22 07:38] LABS: Magnesium 1.8 mg/dL (1.8-2.4)
--- NOTE | 2021-02-22 08:52 | W.PM.PROGNOT ---
Date of Service Date of service: 02/22/21 Time of Service: 11:37 Assessment and Plan Assessment and plan (1) Colon cancer: Status: Chronic Assessment and plan: POD#2 s/p exploratory laparotomy for persistent colonic intussusception secondary to cecal mass excised with small bowel mass and primary anastomosis -Remove NG tube and start sips of clears -Decrease IVF which was changed to d5% LR secondary to hypoglycemia; q6 blood glucose checks ordered. -Continue to monitor urine output, blanc to remain while epidural in place -Potassium repleted, will trend daily CMP -Lovenox for DVT ppx -Protonix for GI ppx -Epidural management per anesthesia -PT as tolerated, encourage ambulation and incentive spirometer use -Downgrade out of ICU -Pathology pending Qualifiers: Colon location: ascending Qualified Code(s): C18.2 - Malignant neoplasm of ascending colon (2) Mass of small intestine: Status: Acute (3) Iron deficiency anemia due to chronic blood loss: Status: Acute (4) Intussusception of colon: Status: Acute (5) GI (gastrointestinal bleed): Status: Chronic Qualifiers: GI bleed type/associated pathology: melena Qualified Code(s): K92.1 - Melena Subjective Subjective Interval history since last seen: Patient reports she feels great without any complaints, denies any pain, nausea, vomiting, fever or chills. +BM and minimal output from NG tube Exam Const General: cooperative, comfortable and no acute distress Resp Effort & Inspection: normal respiratory effort and no audible wheezes Cardio Rate: regular rate Rhythm: regular rhythm GI Inspection: incision (intact, packing removed and re-dressed) Palpation: soft, no guarding and tender (mild appropriate post op) Percussion: normal to percussion Neuro General: patient alert, patient awake and patient oriented x3 Objective Last Vital Signs Temp 97.0 F L 02/22/21 04:05 Pulse 80 02/22/21 05:01 Resp 10 L 02/22/21 05:01 BP 155/74 H 02/22/21 05:01 Pulse Ox 97 02/22/21 05:01 Laboratory Results - last 24 hr 02/22/21 02/22/21 02/22/21 06:30 06:30 06:30 WBC 9.30 RBC 3.86 L Hgb 8.7 L Hct 30.7 L MCV 79.5 L MCH 22.5 L MCHC 28.3 L RDW 21.1 H Plt Count 257 MPV 10.8 Immature Gran % 0.3 Neutrophils % 76.4 Lymphocytes % 15.5 Monocytes % 5.8 Eosinophils % 1.9 Basophils % 0.1 Nucleated RBC % 0 Absolute Neutrophils 7.10 H Absolute Lymphocytes 1.44 Absolute Monocytes 0.54 Absolute Eosinophils 0.18 Absolute Basophils 0.01 Sodium 138 Potassium 3.2 L Chloride 104 Carbon Dioxide 22.2 Anion Gap 11.8 H BUN 10 Creatinine 0.8 Estimated GFR/1.73 m2 >= 60.00 Glucose 62 L Calcium 8.7 Magnesium 1.8
[2021-02-22] MEDS: DEXTROSE 5%-LACTATED RINGERS 1,000 ML 75 ML IV ×2 (08:57→19:33)
[2021-02-22] MEDS: Enoxaparin 40 MG/0.4 ML SYR SC (09:11)
[2021-02-22] MEDS: Potassium Chloride 20 MEQ TABCR 40 MEQ PO (11:31)
--- NOTE | 2021-02-22 12:34 | PTTR_ITS ---
PT Notes Visit Reasons: Colonic Intussception Inpatient Physical Therapy Treatment Note [facility] Date: 02/22/21 SUBJECTIVE: Noy indicated that she was willing to go for a walk. OBJECTIVE: [] BED MOBILITY/TRANSFERS Supine-sit: SBA Sit-stand: SBA Stand-sit: S GAIT Assistive Device: FWW Weight bearing: FWB Assist:SBA Distance: approx 460' ASSESSMENT: tolerated session very well. No c/o SOB or fatigue. No LOB. [facility]. Required assistance to clean self mostly due to all Iv's and tubes. PLAN:will continue following PT POC. Will initiate strengthening ex at next session. TREATMENT CODE/TIME: 30 min. [id number]
[2021-02-22] MEDS: Normal Saline Flush 10 ML SYR IVP ×2 (14:04→21:17)
--- NOTE | 2021-02-22 14:07 | NUR.NOTE ---
Quality Management Nurse notified of transfer orders that have been processed.Nursing Note:
--- NOTE | 2021-02-22 15:33 | W.ANESEPD ---
Epidural/Spinal Daily Note Date Performed: 02/22/21 Assessment Time: 15:30 Patient Location: Intensive Care Unit Catheter Type in Place: Epidural Catheter Dressing Assessment: Dressing intact with good adherence Catheter Assessment: Catheter Labeled and Intact and Functioning Previous Catheter Depth Noted (cm): 12 Current Catheter Depth (cm): 12 Current Medication Infusion: Ropivacaine 0.1% with Fentanyl 2mcg/ml Current Maintenance Infusion Rate (ml/hour): 10 Current PCEA Bolus Dose (ml): 5 Current Pain Score (0-10): 2 Medication Infusion Stopped, Catheter Removal Planned: No Sensory / Motor Block Comments: Patient resting comfortably, OOB to chair, was able to ambulate self with assistance. No significant motor deficits. Good sensory relief to T10. New Bolus Given or Change in Infusion Made: No Daily Management Comments: Discussed plan with patient to start decreasing epidural infusion rate tomorrow morning Completed By: Mariposa Glass
[2021-02-22] MEDS: FentaNYL/ROPIvacaine 2 mcg/ml and 0.1% 200 ML CADD Cassette EP (16:48)
[2021-02-22] MEDS: Pantoprazole 40 MG VIAL IVP (21:17)
[2021-02-23] MEDS: ACETAMINOPHEN 1,000 MG/100 ML BTL 400 MG IVPB ×3 (03:22→20:37)
[2021-02-23 03:40] VITALS: BP 144/74; PULSE 70; RESP 18; TEMP 37.3; O2SAT 92
[2021-02-23 07:27] LABS: Abs Immature Grans 0.02 10^3/uL (0.0-0.06); Absolute Basophil Count 0.02 10^3/uL (0.0-0.2); Absolute Eosinophil Count 0.34 10^3/uL (0.0-0.7); Absolute Monocyte Count 0.44 10^3/uL (0.1-0.8); Absolute Neutrophil Count 3.08 10^3/uL (1.2-6.7); Basophils % 0.4; Eosinophils % 6.3; HCT 27.3 % (36.0-46.0); HGB 7.9 g/dL (11.2-15.7); Immature Grans % 0.4; Lymphocytes % 27.8; MCHC 28.9 % (32.0-36.0); MCV 79.4 fL (80-95); MPV 10.9 fL (8.0-11.0); Monocytes % 8.1; Nucleated RBC 0 %; Platelet Count 264 10^3/uL (130-400); RBC 3.44 10^6/uL (3.93-5.22); RDW 21.5 % (11.7-14.6); RDW-SD 61.9 fL
[2021-02-23 07:51] LABS: Anisocytosis 2+; Diff Comment Diff Reviewed; Hypochromasia 1+; Microcytosis 1+
[2021-02-23 07:52] LABS: Polychromasia Present
[2021-02-23 07:59] LABS: Anion Gap 7.9 mmol/L (3-11); BUN 11 mg/dL (7-18); CO2 26.1 mmol/L (21.0-32.0); CREATININE 0.8 mg/dL (0.55-1.02); Calcium 8.7 mg/dL (8.5-10.1); Chloride 107 mmol/L (98-107); Glucose 112 mg/dL (74-106); Potassium 3.7 mmol/L (3.5-5.1); Sodium 141 mmol/L (136-145)
[2021-02-23 08:15] LABS: Magnesium 1.7 mg/dL (1.8-2.4)
[2021-02-23] MEDS: Enoxaparin 40 MG/0.4 ML SYR SC (08:35)
--- NOTE | 2021-02-23 08:59 | PDOC.CMPRO ---
- If Service Date Differs Date of service: 02/23/21 Time of Service: 08:59 Care Management Progress Note S/O:Noy was sitting up in a chair when CM met with her. She was polite and answered questions willingly. Noy stated that she is felling better. Her pain is well controlled and she has been ambulating with PT. Noy had a dark liquid stool this morning. Her vital signs are stable and she remains afebrile. When asked if she had any idea about how long she would remain at [facility]; Noy stated that she did not. She was not sure if her doctor had been in today or not. She informed CM that it is hard for her to tell who is a doctor and who is a nurse. A: Noy is an 86 year old woman admitted on 02/19/21 with colonic intususception P:Noy continues to be closely monitored and treated by surgical services. She was taken to the OR on Tuesday and admitted to the ICU. She has since been moved out to [facility]. Noy lives alone in a mobile home and she does not have any family in the area. She may need home health support when discharged. CM will continue to support Noy and assess for discharge concerns.
--- NOTE | 2021-02-23 09:08 | PGE_ITS ---
Date of Service Date of service: 02/23/21 Time of Service: 07:30 Assessment and Plan Assessment and plan (1) Colon cancer: Status: Chronic Assessment and plan: POD#3 s/p exploratory laparotomy for persistent colonic intussusception secondary to cecal mass excised with small bowel mass and primary anastomosis -(+) BM this morning, dark liquid stool. -Started sips of clears. -Yesterday Decrease IVF which was changed to d5% LR secondary to hypoglycemia; q6 blood glucose checks ordered. -Continue to monitor urine output, blanc to remain while epidural in place -Potassium repleted, will trend daily CMP -Lovenox for DVT ppx -Protonix for GI ppx -Epidural management per anesthesia -PT as tolerated, encourage ambulation and incentive spirometer use -Pathology pending Qualifiers: Colon location: ascending Qualified Code(s): C18.2 - Malignant neoplasm of ascending colon (2) Mass of small intestine: Status: Acute (3) Iron deficiency anemia due to chronic blood loss: Status: Acute (4) Intussusception of colon: Status: Acute (5) GI (gastrointestinal bleed): Status: Chronic Qualifiers: GI bleed type/associated pathology: melena Qualified Code(s): K92.1 - Melena Subjective Subjective Interval history since last seen: Arrived with patient sitting up on the commode, getting cleaned up. Patient reports feeling okay, this morning. She has been using the [employer]IATE [employer]GRAM[employer], only when her pain gets bad. (+) BM this morning dark/black liquid stool. Exam Const General: cooperative, healthy appearing and comfortable Orientation: alert and oriented x3 Resp Effort & Inspection: normal respiratory effort, no audible wheezes and no cough GI Other: Midline dressing noted. Yellow urine noted in blanc bag. Objective Last Vital Signs Temp 37.3 C 02/23/21 03:40 Pulse 70 02/23/21 03:40 Resp 18 02/23/21 03:40 BP 144/74 H 02/23/21 03:40 Pulse Ox 92 02/23/21 03:40 Laboratory Results - last 24 hr 02/23/21 02/23/21 02/23/21 06:30 06:30 06:30 WBC 5.40 D RBC 3.44 L Hgb 7.9 L Hct 27.3 L MCV 79.4 L MCH 23.0 L MCHC 28.9 L RDW 21.5 H Plt Count 264 MPV 10.9 Immature Gran % 0.4 Neutrophils % 57.0 Lymphocytes % 27.8 Monocytes % 8.1 Eosinophils % 6.3 Basophils % 0.4 Nucleated RBC % 0 Absolute Neutrophils 3.08 Absolute Lymphocytes 1.50 Absolute Monocytes 0.44 Absolute Eosinophils 0.34 Absolute Basophils 0.02 RBC Morphology See Below Polychromasia Present Hypochromasia 1+ Anisocytosis 2+ Microcytosis 1+ Sodium 141 Potassium 3.7 Chloride 107 Carbon Dioxide 26.1 Anion Gap 7.9 BUN 11 Creatinine 0.8 Estimated GFR/1.73 m2 >= 60.00 Glucose 112 H Calcium 8.7 Magnesium 1.7 L
[2021-02-23 09:11] LABS: CEA 2.9 ng/mL (See Note)
--- NOTE | 2021-02-23 09:29 | PTTR_ITS ---
Date of service: 02/23/21 Time of Service: 09:29 PT Notes Visit Reasons: Colonic Intussception Inpatient Physical Therapy Treatment Note [facility] Date: 02/23/21 SUBJECTIVE: Willing to try out walking with and without walker. Reported minimal pain of less than 3/10 throughout session. OBJECTIVE: [employer]IV[employer]ITY REGISTRAR pump in place. Olivera catheter in place. Abdominal dressing in place. BED MOBILITY/TRANSFERS Supine-sit: independent Sit-stand: supervision Stand-sit: supervision GAIT Assistive Device: with and without FWW Weight bearing: FWB Assist: supervision with FWW, SBA without Distance: 120 feet with FWW; 120 feet without FWW DEviation: small steps, decreased arm swing THERA EX: HEP written in room for ankle pumps x 10, heel slides x 10, and DBE x 5 to be done every hour while seated on chair. ASSESSMENT: Activity tolerance improving. Pain tolerance increeasing. Hopeful to go home with FWW as needed. PLAN: Progress strength regimen and mobility level as tolerated. TREATMENT CODE/TIME: 31442 x i unit and 63542 x 1 unit beginning at 9:29 AM.
--- NOTE | 2021-02-23 10:15 | W.ANESEPD ---
Epidural/Spinal Daily Note Date Performed: 02/23/21 Assessment Time: 10:16 Patient Location: Med/Surg Catheter Type in Place: Epidural Catheter Dressing Assessment: Dressing intact with good adherence Catheter Assessment: Intact and Functioning and Planned Removal, team aware, Anticoagulant Therapy Addressed Previous Catheter Depth Noted (cm): 12 Current Catheter Depth (cm): 12 Current Medication Infusion: Ropivacaine 0.1% with Fentanyl 2mcg/ml Current Maintenance Infusion Rate (ml/hour): 10 Current PCEA Bolus Dose (ml): 5 Current Pain Score (0-10): 0 Medication Infusion Stopped, Catheter Removal Planned: Yes New Bolus Given or Change in Infusion Made: No Daily Management Comments: Sitting up in chair comfortably. Denies pain at this time. Has been up and walking and states that she has minimal pain with that. Discussed putting epidural infusion on hold to see how she feels. She was encouraged to reach out to us if she becomes very uncomfortable. Her nurse was informed of the plan. Completed By: Yaw Teixeira
[2021-02-23] MEDS: DEXTROSE 5%-LACTATED RINGERS 1,000 ML 75 ML IV (10:26)
[2021-02-23] MEDS: Normal Saline 500 ML 30 ML IV (10:27)
[2021-02-23] MEDS: IRON SUCROSE COMPLEX 200 MG in Normal Saline 100 ML 400 MG IVPB (10:27)
[2021-02-23] MEDS: MAGNESIUM SULFATE 2 GM/50 ML BAG IVPB (10:27)
[2021-02-23 11:04] VITALS: BP 119/75; PULSE 73; RESP 16; TEMP 37; O2SAT 99
--- NOTE | 2021-02-23 11:48 | W.NUTCONSULT ---
Date of service: 02/23/21 Time of Service: 11:48 Nutritional Consult ASSESSMENT: Ms. Wheeler has been NPO or clear liquids x 4 days. She is 163 cm and 61.3 kg. BMI is 23.2 kg/m2 which is WNL. NUTRITIONAL DIAGNOSIS: Altered gi status related to intussusception of colon. INTERVENTION: For now, will add Ensure Clear to clear liquid trays to boost calorie and protein intake. If prolonged clear liquid or NPO status is anticipated would consider nutrition support to prevent malnutrition. MONITORING AND EVALUATION: Will continue to follow progress, PO, and weight. Will evaluate nutrition care plan ongoing and adjust as needed. Time Spent in Nutritional Counseling and Treatment: 0
[2021-02-23 16:11] VITALS: BP 132/80; PULSE 81; RESP 18; TEMP 36.8; O2SAT 98
[2021-02-23] MEDS: Normal Saline Flush 10 ML SYR IVP ×2 (20:38→21:51)
[2021-02-23] MEDS: Pantoprazole 40 MG VIAL IVP (21:52)
[2021-02-23 23:31] VITALS: BP 130/60; PULSE 74; RESP 16; TEMP 36.3; O2SAT 97
[2021-02-24 01:47] VITALS: RESP 16; O2SAT 97
[2021-02-24] MEDS: DEXTROSE 5%-LACTATED RINGERS 1,000 ML 75 ML IV ×2 (02:52→17:43)
[2021-02-24] MEDS: ACETAMINOPHEN 1,000 MG/100 ML BTL 400 MG IVPB ×2 (03:26→12:41)
--- NOTE | 2021-02-24 06:13 | W.ANESEPD ---
Epidural/Spinal Daily Note Date Performed: 02/24/21 Assessment Time: 06:10 Patient Location: Med/Surg Catheter Type in Place: Epidural Catheter Dressing Assessment: Dressing intact with good adherence Catheter Assessment: Catheter Labeled and Planned Removal, team aware, Anticoagulant Therapy Addressed Previous Catheter Depth Noted (cm): 12 Current Catheter Depth (cm): 0 Current Medication Infusion: Other Current Maintenance Infusion Rate (ml/hour): 0 Current PCEA Bolus Dose (ml): 0 Current Pain Score (0-10): 0 Medication Infusion Stopped, Catheter Removal Planned: Yes New Bolus Given or Change in Infusion Made: No Completed By: Yaw Teixeira
[2021-02-24 07:30] VITALS: BP 135/76; PULSE 77; RESP 16; TEMP 36.5; O2SAT 96
[2021-02-24 08:11] LABS: BUN 6 mg/dL (7-18); CREATININE 0.6 mg/dL (0.55-1.02); Calcium 8.4 mg/dL (8.5-10.1); Chloride 108 mmol/L (98-107); Glucose 92 mg/dL (74-106); Magnesium 1.8 mg/dL (1.8-2.4); Potassium 3.2 mmol/L (3.5-5.1); Sodium 144 mmol/L (136-145)
--- NOTE | 2021-02-24 08:47 | W.PM.PROGNOT ---
Documented by User: QUAN Wayne 02/24/21 09:17 Date of Service Date of service: 02/24/21 Time of Service: 09:14 Assessment and Plan Assessment and plan (1) Colon cancer: Status: Chronic Assessment and plan: POD#4 s/p exploratory laparotomy for persistent colonic intussusception secondary to cecal mass excised with small bowel mass and primary anastomosis -(+) BM this morning along with passing flatus -Continue to monitor urine output, blanc to remain while epidural in place. -Potassium repleted, will trend daily CMP -Lovenox for DVT ppx -Protonix for GI ppx -Epidural management per anesthesia, If epidural is removed today, will d/c blanc as well. -PT as tolerated, encourage ambulation and incentive spirometer use -Pathology pending Qualifiers: Colon location: ascending Qualified Code(s): C18.2 - Malignant neoplasm of ascending colon (2) Mass of small intestine: Status: Acute (3) Iron deficiency anemia due to chronic blood loss: Status: Acute (4) Intussusception of colon: Status: Acute (5) GI (gastrointestinal bleed): Status: Chronic Qualifiers: GI bleed type/associated pathology: melena Qualified Code(s): K92.1 - Melena Subjective Subjective Interval history since last seen: patient reports she continues to feel better. She expresses ambulation and working with PT has been going well. She reports currently mild, abdominal discomfort. (+) BM this morning. Denies any fevers, chills or night sweats. Exam Const General: cooperative, healthy appearing and comfortable Orientation: alert and oriented x3 Resp Effort & Inspection: normal respiratory effort, no audible wheezes and no cough GI Palpation: soft, no guarding and tender (midline, surrounding incision site. ) Objective Last Vital Signs Temp 36.5 C 02/24/21 07:30 Pulse 77 02/24/21 07:30 Resp 16 02/24/21 07:30 BP 135/76 02/24/21 07:30 Pulse Ox 96 02/24/21 07:30 Laboratory Results - last 24 hr 02/21/21 02/24/21 06:10 06:18 Sodium 144 Potassium 3.2 L Chloride 108 H Carbon Dioxide 30.0 Anion Gap 6.0 BUN 6 L Creatinine 0.6 Estimated GFR/1.73 m2 >= 60.00 Glucose 92 Calcium 8.4 L Magnesium 1.8 Carcinoembryonic Ag 2.9 Documented by User: Bárbara Mulligan DO 02/24/21 20:54 Assessment and Plan Assessment and plan (1) Colon cancer: Status: Chronic Assessment and plan: POD#4 s/p right ruth & small bowel resection. Pt presented w/ an intusception , w/ the lead point being a cecal colon cancer. epidurarl is removed. pt is not having pain. Typenol as needed for pain d/c blanc pt was up and walked the whole loop w/ PT soft diet pt c/o diarrhea and will stop entereg. plan d/c home . She has a friend that is coming to stay w/ her to help out. path- pd Qualifiers: Colon location: ascending Qualified Code(s): C18.2 - Malignant neoplasm of ascending colon (2) Mass of small intestine: Status: Acute (3) Iron deficiency anemia due to chronic blood loss: Status: Acute (4) Intussusception of colon: Status: Acute
--- NOTE | 2021-02-24 10:17 | PT.INTREAT ---
Date of service: 02/24/21 Time of Service: 10:17 PT Notes Visit Reasons: Colonic Intussception Inpatient Physical Therapy Treatment Note [facility] Date: 02/24/21 SUBJECTIVE: Feels a lot more secure and less achy in the tummy with use of walker. Happy about how much she has improved since surgery. oNly reported 3/10 pain in the abdominal area after ambulation activity. OBJECTIVE: Epidural catheter removed as of this morning. Olivera catheter in place. Abdominal dressing in place. BED MOBILITY/TRANSFERS Supine-sit: independent Sit-stand: independent Stand-sit: independent GAIT Assistive Device: FWW Weight bearing: FWB Assist: supervision Distance: 350 feet Deviation: Step quality improving, reciprocal LE movement much better now that pain level has subsided. Reported 3/10 pain in abdominal area after walking acivity. THERA EX: tolerated standing level exercises of bilateral heel raises, partial knee bends, and hip abduction/adduction x 10 reps without undue discomfort. Reviewed room exercises for improved compliance. ASSESSMENT: Activity tolerance continuing to improve. Pain tolerance continuing to increase. Hopeful to go home with FWW as needed. PLAN: Progress strength regimen and mobility level as tolerated. DISCHARGE RECOMMENDATIONS: Patient will benefit from home health PT services in order to progress mobility level using least restrictive assistive ambulatory device, assess home safety, identify additional equipment needs, and establish a functional maintenance program that will increase ability of patient to remain at home. TREATMENT CODE/TIME: 95309 x 1 unit and 78328 x 1 unit beginning at 10:17 AM.
[2021-02-24] MEDS: Enoxaparin 40 MG/0.4 ML SYR SC (12:40)
--- NOTE | 2021-02-24 16:13 | CHAPLAIN ---
I visited with Noy this morning. She said she has been in touch family by phone. She was sitting up in her chair watching tv. I explained my role and offered support. Noy is listed as Alyce, but I did not confirm that with her.
[2021-02-24 16:36] VITALS: BP 158/88; PULSE 70; RESP 15; TEMP 36.9; O2SAT 98
--- NOTE | 2021-02-24 17:20 | PDOC.CMPRO ---
Care Management Progress Note S/O: Noy was sitting up in a chair when CM met with her. She was polite and answered questions willingly. Noy reported not anticipating that she would need home health upon discharge and intends on returning home alone. She reports she will discuss this with her daughter, Morelia Hutchison. CM offered to coordinate a discharge planning meeting with Noy and Morelia to review recommendations. CM continues to follow. A: Noy is an 86 year old woman admitted on 02/19/21 with colonic intususception P: Noy continues to be closely monitored and treated by surgical services. CM will continue to support Noy and assess for discharge planning considerations. Today, Noy reported she intended on returning home where she resides alone, undetermined if VNA supports will be ordered upon discharge.
[2021-02-24 19:23] VITALS: BP 132/75; PULSE 71; RESP 16; TEMP 37.1; O2SAT 98
[2021-02-24] MEDS: Normal Saline Flush 10 ML SYR IVP (21:26)
[2021-02-24] MEDS: Pantoprazole 40 MG VIAL IVP (21:27)
[2021-02-25 01:00] VITALS: BP 128/69; PULSE 73; RESP 16; TEMP 36.8; O2SAT 96
[2021-02-25] MEDS: Enoxaparin 40 MG/0.4 ML SYR SC (08:45)
--- NOTE | 2021-02-25 08:55 | PT.INDS ---
Date of service: 02/25/21 Time of Service: 08:55 PT Notes Visit Reasons: Colonic Intussception Physical Therapy Inpatient Discharge Summary Date: 02/25/2021 Date of service: 02/21/2021 through 02/25/2021 Referring Doctor: Bárbara Mulligan MD PT Orders: PT CONSULT Precautions: Standard Patient Profile/Admitting Diagnosis: Noy is an 86 y/o female who was in her normal state of good health until she woken morning with abdominal pain. She states prior to morning she had no problems moving her bowels. She has not noticed any blood in her stools. She has not experienced any weight loss. She is active and has no chest pain or shortness of breath with activities. She was admitted night after finding intussusception on CT scan. She also had a profound anemia at 6.4 and received 2 units of blood. She is s/p hemicolectomy and excision of ileum. PMHX: Hiatal hernia Large on CT 02/19/21 Hyperlipidemia Osteoarthritis Social History/Home Situation: Noy lives in a private mobile home. She reports independence at baseline. Remains active with bone builders class. She declines any use of assistive device. She has 4 stairs to enter her home. Current Functional Limitations: Abdominal pain with functional transfers Equipment Owned/DME: None Subjective: Agreeable to PT session. Looking forward to going home associates cleared by surgeon. Objective: General Observation: IV access in right UE. Telemetry monitoring in place Mental Status: Alert and oriented x3 Pain: 1/10 in abdominal area ROM: Right Upper Extremity: Demonstrates grossly WFL AA R UE ROM. Left Upper Extremity: AROM WFL Right Lower Extremity: AROM WFL Left Lower Extremity: AROM WFL Strength: Right Upper Extremity: Demonstrates grossly 4-5/5 R UE strength Left Upper Extremity: Demonstrates grossly 5/5 L UE strength Right Lower Extremity: Hip flexion 4/5, knee extension/flexion 5/5, DF 5/5 Left Lower Extremity: Hip flexion 4/5, knee extension/flexion 5/5, DF 5/5 Sensation: Intact light touch bilateral LE Bed Mobility/Transfers: Rolling independent Supine to sit independent Sit to supine independent Sit to stand independent Stand to sit independent Bed to chair independent Chair to bed independent Gait: Patient is able to tolerate 520 feet +150 feet on level surface ambulation without an assistive device with full weightbearing bilateral lower extremities independently with no remarkable gait abnormalities with report of 1?10 pain in abdominal area. Stairs: Tolerates up and down 12 x 4 inch steps in a x6 inch steps while holding onto 1 rail independently. Balance: Static Sitting: Normal Dynamic Sitting: Normal Static Standing: Normal Dynamic Standing: Good Assessment: Patient has achieved all goals as listed below during his episode of care and is back to baseline mobility level without the need of an assistive ambulatory device. Goals: Goals X1 week 1. Supine-Sit independent MET 2. Sit-Supine independent MET 3. Sit-Stand independent MET 4. Stand-Sit independent MET 5. Bed-Chair independent with least restrictive assistive device MET 6. Chair-Bed independent with least restrictive assistive device MET 7. Gait independent with least restrictive assistive device 200 ft or greater MET 8. Stairs able to ascend descend 4 stairs independently with use of bilateral railing MET DISCHARGE RECOMMENDATIONS: Home when medically cleared by surgeon. No equipment needs at this time. TREATMENT CODE/TIME: 42830 x 21 minutes beginning at 8:55 AM. Thank you for the opportunity to participate in the care of this patient. Sofia Larios PT, DPT, CLT [facility] [place], [place]
[2021-02-25 09:11] VITALS: BP 147/79; PULSE 74; RESP 18; TEMP 37.2; O2SAT 95
[2021-02-25 09:18] VITALS: BP 135/84; PULSE 87; RESP 18; TEMP 36.9; O2SAT 99
--- NOTE | 2021-02-25 11:21 | W.PM.PROGNOT ---
Date of Service Date of service: 02/25/21 Time of Service: 08:01 Assessment and Plan Assessment and plan (1) Colon cancer: Status: Chronic Assessment and plan: POD#5 s/p exploratory laparotomy for persistent colonic intussusception secondary to cecal mass excised with small bowel mass and primary anastomosis -(+) BM this morning along with passing flatus -Olivera has been d/c. Urinating without difficulty. -Lovenox for DVT ppx -Protonix for GI ppx - Pain has been well controlled with Tylenol. -PT as tolerated, encourage ambulation and incentive spirometer use -Pathology pending Strongly encouraged the patient to participate in PT and ambulation throughout the day, in preparation of d/c. Patient lives alone and will need to have the strength and activity tolerance to perform her ADLs independtly. Discussed that she speak with her family members to start creating a d/c plan, to see if someone will be able to stay with her a few days as she transtions back home. Qualifiers: Colon location: ascending Qualified Code(s): C18.2 - Malignant neoplasm of ascending colon (2) Mass of small intestine: Status: Acute (3) Iron deficiency anemia due to chronic blood loss: Status: Acute (4) Intussusception of colon: Status: Acute (5) GI (gastrointestinal bleed): Status: Chronic Qualifiers: GI bleed type/associated pathology: melena Qualified Code(s): K92.1 - Melena Subjective Subjective Interval history since last seen: Patient reports that she continues to feel well. She reports urinating without difficulty. She describes her pain as well controlled. When she has discomfort it is located around her laparotomy incision. Denies any fevers, chills or night sweats. Exam Const General: cooperative, healthy appearing and comfortable Orientation: alert and oriented x3 Resp Effort & Inspection: normal respiratory effort, no audible wheezes and no cough GI Palpation: soft, no guarding and tender (midline around incision ) Objective Last Vital Signs Temp 36.9 C 02/25/21 09:18 Pulse 87 02/25/21 09:18 Resp 18 02/25/21 09:18 BP 135/84 02/25/21 09:18 Pulse Ox 99 02/25/21 09:18 Laboratory Results - last 24 hr 02/19/21 17:23 Patient ABO/Rh A Positive
--- NOTE | 2021-02-25 13:24 | CMPROGNOTE_ITS ---
Care Management Progress Note S/O: Noy was sitting up in a chair when CM met with her. She remains pleasant in interaction. In the afternoon CM met with Noy, her daughter and her granddaughter to review discharge information. CM listed questions on white board with Benita's contact information to review. CM reviewed additional service options, Noy was agreeable to MOW and home health services to support her transition home; CM notified surgical services. CM continues to follow. A: Noy is an 86 year old woman admitted on 02/19/21 with colonic int ussusception P: Noy continues to be closely monitored and treated by surgical services. CM will continue to support Noy and assess for discharge planning considerations. Today, Noy reported she intended on returning home where she resides alone, she will have new orders for VNA supports including RN and PT upon discharge and new referral for MOW as well. She will transport via private vehicle with her friend, Kristi.
[2021-02-25 15:17] VITALS: BP 127/88; PULSE 94; RESP 16; TEMP 35.8; O2SAT 98
[2021-02-25 17:09] VITALS: RESP 16; O2SAT 98
[2021-02-25 19:20] VITALS: BP 127/88; PULSE 80; RESP 14; TEMP 37; O2SAT 99
[2021-02-25] MEDS: Pantoprazole 40 MG VIAL IVP (22:09)
[2021-02-25] MEDS: Normal Saline Flush 10 ML SYR IVP (22:09)
[2021-02-26 07:16] VITALS: BP 156/90; PULSE 80; RESP 18; TEMP 36.8; O2SAT 97
[2021-02-26 07:34] LABS: Abs Immature Grans 0.03 10^3/uL (0.0-0.06); Absolute Basophil Count 0.02 10^3/uL (0.0-0.2); Absolute Eosinophil Count 0.22 10^3/uL (0.0-0.7); Absolute Lymphocyte Count 1.44 10^3/uL (1.2-3.4); Absolute Monocyte Count 0.37 10^3/uL (0.1-0.8); Absolute Neutrophil Count 2.87 10^3/uL (1.2-6.7); Basophils % 0.4; Eosinophils % 4.4; HCT 28.4 % (36.0-46.0); HGB 8.4 g/dL (11.2-15.7); Immature Grans % 0.6; Lymphocytes % 29.1; MCH 23.4 pg (27.0-33.0); MCHC 29.6 % (32.0-36.0); MCV 79.1 fL (80-95); MPV 10.7 fL (8.0-11.0); Monocytes % 7.5; Nucleated RBC 0 %; RBC 3.59 10^6/uL (3.93-5.22); RDW 23.9 % (11.7-14.6); RDW-SD 65.1 fL; WBC 4.95 10^3/uL (4.4-10.8)
[2021-02-26] MEDS: Enoxaparin 40 MG/0.4 ML SYR SC (07:39)
[2021-02-26 07:47] LABS: Anisocytosis 3+; Diff Comment Diff Reviewed; Hypochromasia 1+; Platelet Count 263 10^3/uL (130-400)
[2021-02-26 07:48] LABS: Poikilocytes 1+; Polychromasia Present
--- NOTE | 2021-02-26 08:15 | W.PM.PROGNOT ---
Documented by User: QUAN Wayne 02/26/21 08:20 Date of Service Date of service: 02/26/21 Time of Service: 07:30 Assessment and Plan Assessment and plan (1) Colon cancer: Status: Chronic Assessment and plan: POD#6 s/p exploratory laparotomy for persistent colonic intussusception secondary to cecal mass excised with small bowel mass and primary anastomosis -(+) BM this morning along with passing flatus Urinating without difficulty. -Lovenox for DVT ppx -Protonix for GI ppx - Pain has been well controlled with Tylenol. -PT as tolerated, encourage ambulation and incentive spirometer use -Pathology pending Patient and her family have been working with care management to agree upon and coordinate services needed upon d/c home. The patient is doing very well and will be ready for d/c within the next day or two. Qualifiers: Colon location: ascending Qualified Code(s): C18.2 - Malignant neoplasm of ascending colon (2) Mass of small intestine: Status: Acute (3) Iron deficiency anemia due to chronic blood loss: Status: Acute (4) Intussusception of colon: Status: Acute (5) GI (gastrointestinal bleed): Status: Chronic Qualifiers: GI bleed type/associated pathology: melena Qualified Code(s): K92.1 - Melena Subjective Subjective Interval history since last seen: Patient reports that she continues to feel well. Denies any fevers, chills or night sweats. She reports that she spoke with her family about discharge and plans for help as she first transitions home. Exam Const General: cooperative, healthy appearing and comfortable Orientation: alert and oriented x3 Resp Effort & Inspection: normal respiratory effort, no audible wheezes and no cough GI Palpation: soft, no guarding and nontender Other: Midline incision well approximated. Mild ecchymosis. No drainage, erythema or induration noted. Jayne remain in place. Objective Last Vital Signs Temp 36.8 C 02/26/21 07:16 Pulse 80 02/26/21 07:16 Resp 18 02/26/21 07:16 BP 156/90 H 02/26/21 07:16 Pulse Ox 97 02/26/21 07:16 Laboratory Results - last 24 hr 02/26/21 02/26/21 06:05 07:27 WBC Cancelled 4.95 RBC Cancelled 3.59 L Hgb Cancelled 8.4 L Hct Cancelled 28.4 L MCV Cancelled 79.1 L MCH Cancelled 23.4 L MCHC Cancelled 29.6 L RDW Cancelled 23.9 H Plt Count Cancelled 263 MPV Cancelled 10.7 Immature Gran % Cancelled 0.6 Neutrophils % Cancelled 58.0 Band Neutrophils % Cancelled Lymphocytes % Cancelled 29.1 Atypical Lymphs % Cancelled Monocytes % Cancelled 7.5 Eosinophils % Cancelled 4.4 Basophils % Cancelled 0.4 Metamyelocytes % Cancelled Myelocytes % Cancelled Promyelocytes % Cancelled Other Cells % Cancelled Nucleated RBC % Cancelled 0 Absolute Neutrophils Cancelled 2.87 Absolute Lymphocytes Cancelled 1.44 Absolute Monocytes Cancelled 0.37 Absolute Eosinophils Cancelled 0.22 Absolute Basophils Cancelled 0.02 RBC Morphology Cancelled See Below Polychromasia Cancelled Present Hypochromasia Cancelled 1+ Poikilocytosis Cancelled 1+ Basophilic Stippling Cancelled Anisocytosis Cancelled 3+ Microcytosis Cancelled Macrocytosis Cancelled Spherocytes Cancelled Tear Drop Cells Cancelled Ovalocytes Cancelled Stomatocytes Cancelled Stock-Lilburn Bodies Cancelled Cecile Cells/Echinocytes Cancelled Acanthocytes (Spur) Cancelled Schistocytes Cancelled Documented by User: Bárbara Mulligan DO 02/26/21 10:07 Assessment and Plan Assessment and plan (1) Colon cancer: Status: Chronic Assessment and plan: Patient has been doing extremely well. Physical therapy has no concerns with her going home to be on her own. She has been tolerating a regular diet. She has had 1 bowel movements a day. There has been no blood. She is ambulating using a walker at this point to assist with balance. She has been having no pain and only using Tylenol for pain. I discussed with her expectations at home as far as diet wound care and exercise. And we will send her home today. Please see discharge instructions. She will go home with home PT and home RN. She is no changes to her home medications and follow-up in clinic next with myself. Patient understood all and is discharged in stable and satisfactory condition. Qualifiers: Colon location: ascending Qualified Code(s): C18.2 - Malignant neoplasm of ascending colon
--- NOTE | 2021-02-26 09:46 | DSE_ITS ---
Date of service: 02/26/21 Time of Service: 09:47 DS: Diagnosis Discharge Diagnosis (1) Colon cancer: Status: Chronic (2) Mass of small intestine: Status: Acute (3) Iron deficiency anemia due to chronic blood loss: Status: Acute (4) Intussusception of colon: Status: Acute (5) GI (gastrointestinal bleed): Status: Chronic Discharge Plan Disposition Patient Disposition: HOME Condition: Stable Discharge Details Reason For Visit: Colonic Intussception Admit Date/Time: 02/19/21 20:17 Admit Provider: Bárbara Mulligan Attending Provider: Bárbara Mulligan Primary Care Provider: Eligio Maddox Home Meds and New Rx's Prescriptions: No Action CENTRUM SILVER TABLET 1 EACH tablet 1 ea PO DAILY RF: 0 cholecalciferol (vitamin D3) [Vitamin D3] 400 UNIT capsule 800 unit PO DAILY RF: 0 Aspirin/Acetaminophen/Caffeine [Excedrin Extra Strength Caplet] 1 EACH tablet 1 ea PO PRN PRNRF: 0 Discharge Instructions Additional Instructions: -No driving x1 week or of you are taking pain medications. -If you have constantino or sutures in place, they will be removed at your clinic appointment in 7-10 days. -Follow-up with Dr. Mulligan in 1 week. 03/05 at 10am. [facility] [address] [facility] -soft diet: No beef/pork raw vegetables x1 -week. Cooked vegetables are fine. see diet instructions below -no straining to move bowels -It is ok to shower. No bathe, soaking, swimming or hot tubs -Keep wound clean and dry. Wash incision with soap and water daily. Pat dry, don't rub. See below. -Protein supplements daily. You may find that your appetite is smaller. Eat 3-6 small meals throughout the day. It is important to drink lots of water after surgery, 6-10 glasses a day. -If you were given an incentive spirometry (breathing coffee grinder?), continue to do this 10x/hour while awake. -We do want you up walking, at least 5-6 times per day. This is very important to prevent pneumonia and blood clots. You can climb stairs, take them slowly. -No lifting over 5 pounds. This is very important to avoid developing a hernia in your incision. -You may find that you are very tired after surgery- this is normal. Gastrointestinal Soft Diet Overview Overview What is a gastrointestinal soft diet? This diet is soft in texture, low in fiber, and easy to digest. The goal is to decrease) in the bowel that may cause and discomfort. This diet is often used after abdominal surgery or as a transitional diet after flares. Meats & Meat Substitutes ? Foods Allowed: Chicken, turkey, fish, tender cuts of beef and pork, ground meats, eggs, creamy nut butters, tofu, skinless hot dogs, sausage patties without whole spices ? Foods to Avoid : Tough, fibrous meats with gristle, meat with casings (hot dogs, sausage, kielbasa), lunch meats with whole spices, shellfish, beans, chunky peanut butter, nuts Fruits and Juices ? Foods Allowed: Fruit juices without pulp, banana, avocado, applesauce, canned peaches and pears, cooked fruit without the skin/seeds ? Foods to Avoid: Juices with pulp, fresh fruit (except banana and avocado), dried fruits, canned fruit cocktail and pineapple, coconut, frozen/thawed berries Vegetables ? Foods Allowed: Well-cooked or canned vegetables, potatoes without skin, tomato sauces, vegetable juice ? Foods to Avoid: Raw vegetables, all corn, all mushrooms, stewed tomatoes, potato skins, stir-owens vegetables, sauerkraut, pickles, olives, all dried beans, peas, and legumes Cereals and Grains ? Foods Allowed: Low- fiber dry or cooked cereals (less than 2 grams fiber per serving), white rice, pasta, macaroni, or noodles ? Foods to Avoid: Cereals with nuts, berries, dried fruits, whole grain cereals, bran cereals, granola, brown or wild rice, whole grain pasta Breads and Crackers ? Foods Allowed: White/refined breads and rolls, plain bagel, toast, plain crackers, jenni crackers ? Foods to Avoid: Whole grain breads- including white whole grain; bread/ rolls with raisins, nuts or seeds, multi-grain crackers Dairy ? Foods Allowed: Milk, cheese, yogurt, milkshakes, pudding, ice cream, cottage cheese, sherbet ; lactose free or low lactose versions if lactose intolerant ? Foods to Avoid: Dairy product mixed with fresh fruit (except banana), berries, nuts or seeds Desserts ? Foods Allowed: Plain cake, pudding, custard, ice cream, sherbet, gelatin, fruit whips ? Foods to Avoid: Any dessert that contains nuts, dried fruits, coconut, or fruits with seeds Herbs and Spices ? Foods Allowed: All ground spices or herbs, salt ? Foods to Avoid: Whole spices such as peppercorns, whole cloves, anise seeds, celery seeds, najma, magdaleno seeds, and fresh herbs Snacks/Other Foods ? Foods Allowed: Sugar, honey, jelly, mayonnaise, mustard, soy sauce, oil, butter, margarine, marshmallows, cookies without dried fruits or nuts, snack chips and pretzels using refined flours ? Foods to Avoid: Carbonated beverages, jams or jellies with seeds, popcorn After several weeks, slowly start to reintroduce the ?Foods to Avoid? back into your diet unless your doctor has told you otherwise. Try a small portion of one of these foods each day. If it does not bother you within 24 hours, it can be added to your diet. Continue to add new foods in this way. Some people may continue to have food sensitivities and may need to continue to avoid certain foods. If you cannot tolerate a food, avoid that food for a few weeks before you try it again. Guidelines when eating 1. Avoid any food that you cannot tolerate or that causes gas, bloating, or stomach pain. 2. Make time for your meals. Do not eat while you are in a hurry. Cut your michelle d into small pieces. Chew each bite to a mashed potato consistency. Do not eat when you cannot concentrate on chewing well. 3. Drink at least 6-8 cups of fluid per day Fluids include: water, coffee, t ea, juice, milk, popsicles, soups, gelatin, pudding, ice cream, sherbet, and yogurt. In addition, choose caffeine-free beverages more often, especially if you are having diarrhea. 4. A daily multivitamin may be recommended if diet is limited in amounts or variety of foods. Do not take any herbal supplements without first checking with your doctor. Pain Control Use ice! Ice keeps the swelling down and swelling is what causes pain. Never apply ice directly to the skin. Wrap it in a towel or cloth. Apply ice 20 minutes on and 20 minutes off for pain control. Use as needed. Take tylenol 325 mg by mouth with food every 4 hours as needed for pain. Or ibuprofen 400 mg by mouth with food every 4 hours as needed for pain. Home care ? Always wash your hands before touching your incision. ? Keep the incision clean, dry, and out of water, keep the incision out of water. ? Do not to pick at the scabs. Scabs help protect the wound. ? You can take a shower in 24 hours and wash the incision with soap and water. Pat dry/don?t scrub. It?s OK to wash around the incision. But don?t spray water directly on it. ? Pat stitches dry if they get wet. Don't rub. ? Check the incision site daily for pain, redness, drainage, swelling, or separation of the incision edges. ? If there is a bandage (dressing) over the incision, change this every 24 hours as instructed by your provider. Using clean hands change the dressing as directed by your healthcare provider. Always wash your hands before changing your dressing. ? Make sure any clothing that touches the incision is loose-fitting. This will prevent rubbing. If the incision is on the head, keep your child from wearing caps or other head coverings. These may rub against the incision. ? ? Make sure you avoid doing things that could cause dirt or sweat to get in or on the incision. As your incision heals, the skin may appear pink or red. It may also feel slightly bumpy or raised. This is called a healing ridge. Over time, the color should fade and the raised skin will become less noticeable. Follow-up care [place] or sutures generally need to be removed in 7-10 days. Be sure to return for suture or staple removal as directed.. When to seek medical care Call your healthcare provider right away if you have any of these: ? More pain, redness, swelling, bleeding, or foul-smelling discharge around the incision area ? Fever of 101?F (38.3?C) or higher, or as directed by your child's healthcare provider ? Shaking chills ? Vomiting or nausea that doesn?t go away ? Numbness, coldness, or tingling around the incision area, or changes in skin color ? Opening of the sutures or wound Stitches or constantino come apart or fall out or surgical tape falls off before 7 days, or as directed by your healthcare provider If you have any questions or concerns, please feel free to contact our office. A follow-up appointment should have been scheduled for you at the time of your departure, if not, please call our office to schedule one in 7 days. Surgery Clinic: [phone] Activity:: see above Equipment/Supplies:: Walker Diet:: see above DS: Summary Time Spent with Patient providing and/or coordinating discharge services: Greater than 30 minutes Status at Discharge Functional status at discharge: independent ambulation Overall status at discharge: patient is back to baseline Mental Status: mental status grossly normal Speech and Movement: speech and movement normal Mood: congruent mood Affect: normal affect Exam Psych Mental Status: mental status grossly normal Speech and Movement: speech and movement normal Mood: congruent mood Affect: normal affect DS: Data Vitals/I&O Vitals and I&O: Vital Signs Temperature 36.8 C 02/26/21 07:16 Temperature Source Tympanic 02/26/21 07:16 Pulse 80 02/26/21 07:16 Pulse Rhythm Regular 02/26/21 04:20 Pulse 89 02/22/21 17:45 Respiratory Rate 18 02/26/21 07:16 Respiratory Effort Non-Labored 02/26/21 04:20 Respiratory Depth Normal 02/26/21 04:20 Respiratory Pattern Normal 02/26/21 04:20 Blood Pressure 156/90 H 02/26/21 07:16 Blood Pressure Mean 78 02/22/21 17:45 Blood Pressure Position Sitting 02/22/21 13:49 Pulse Oximetry 97 02/26/21 07:16 Respiratory End-tidal CO2 33 02/20/21 12:44 Oxygen Delivery Method Room Air 02/26/21 07:16 Oxygen Flow Rate 0 02/26/21 07:16 Pain Level 0 02/26/21 07:16 Comment 02/26/21 07:16 Intake & Output 02/25/21 02/25/21 02/26/21 11:59 23:59 11:59 Intake Total 1000 / 1000 Output Total 900 / 900 300 / 300 Balance 100 / 100 -300 / -300 Intake: IV 1000 / 1000 Output: Urine 900 / 900 300 / 300 Other: Urine Color Yellow Straw Urine Appearance Clear Clear Clear Urine Odor None Normal Comment uring was mixed with stool Stool Occult Blood Positive Stool Size Moderate Stool Characteristics Liquid Bloody Voiding Methods Toilet Toilet Data Completed and Pending Labs on day of discharge: Labs from last 24 hours 02/26/21 02/26/21 07:27 06:05 WBC 4.95 Cancelled RBC 3.59 L Cancelled Hgb 8.4 L Cancelled Hct 28.4 L Cancelled MCV 79.1 L Cancelled MCH 23.4 L Cancelled MCHC 29.6 L Cancelled RDW 23.9 H Cancelled Plt Count 263 Cancelled MPV 10.7 Cancelled Immature Gran % 0.6 Cancelled Neutrophils % 58.0 Cancelled Band Neutrophils % Cancelled Lymphocytes % 29.1 Cancelled Atypical Lymphs % Cancelled Monocytes % 7.5 Cancelled Eosinophils % 4.4 Cancelled Basophils % 0.4 Cancelled Metamyelocytes % Cancelled Myelocytes % Cancelled Promyelocytes % Cancelled Other Cells % Cancelled Nucleated RBC % 0 Cancelled Absolute Neutrophils 2.87 Cancelled Absolute Lymphocytes 1.44 Cancelled Absolute Monocytes 0.37 Cancelled Absolute Eosinophils 0.22 Cancelled Absolute Basophils 0.02 Cancelled RBC Morphology See Below Cancelled Polychromasia Present Cancelled Hypochromasia 1+ Cancelled Poikilocytosis 1+ Cancelled Basophilic Stippling Cancelled Anisocytosis 3+ Cancelled Microcytosis Cancelled Macrocytosis Cancelled Spherocytes Cancelled Tear Drop Cells Cancelled Ovalocytes Cancelled Stomatocytes Cancelled Stock-Manter Bodies Cancelled Cecile Cells/Echinocytes Cancelled Acanthocytes (Spur) Cancelled Schistocytes Cancelled [facility] Medical History Hiatal hernia Large on CT 02/19/21 Hyperlipidemia Osteoarthritis Family History Mother , GI BLEED at age 86. Essential hypertension Father , age 79 Pulmonary fibrosis CHF (congestive heart failure) Heart disease Sister , age 72 Essential hypertension Hyperlipidemia Liver cancer Maternal Grandfather No problems noted. Paternal Grandfather No problems noted. Maternal Grandmother Cancer Paternal Grandmother No problems noted. Brother , age 80? Pancreatic cancer Brother , age 60? Heart disease Sister No problems noted. Social History Smoking/Tobacco Use Status: Never Smoking risk assessment performed?: Yes Alcohol Intake: never Drug use: Never Substance use type: does not use Caregiver/Support person: No Household members: none Communication Needs: None Do you need help understanding health information?: Never Pets and animals: No Sexually active: No Do you think of yourself as: straight/heterosexual What is your relationship status?: How often do you talk on the phone with friends or family?: three or more times per week How often do you get together with friends or relatives?: three or more times per week How often do you attend buddhist or taoism services?: 1-3 times per year Do you belong to any clubs or organized social groups?: no Panel score (0-1 are the most socially isolated patients): 1 What type of physical activity do you participate in: other Details: [employer] and decline to answer Duration: decline to answer Frequency: 1-2 times per week Johanne/Mormonism: No preference Special johanne needs: No Seatbelt use: always Helmet use: Yes Helmet use: always Drive intox or ride w/intox driver operator: No Do you feel safe at home: Yes Do you feel safe in your relationship?: Yes
--- NOTE | 2021-02-26 09:50 | PDOC.CMDIS ---
- If Service Date Differs Date of service: 02/26/21 Time of Service: 09:54 LACE Index Scoring Tool - Questions: Length of Stay (in days): 7 - 13 Acuity (Admit via E.D.?): Yes E.D. Visits: 1 - Answers: Total Score: 9 Risk of Readmission: Low Risk Care Management Discharge Reason for Hospitalization: Colonic Intussception Discharge Plan: Noy will return home when ready per MD, she will have new orders for [facility]NA RN/PT through [facility], CM faxed referral for [facility] as well. Noy will transport via private vehicle with her friend, Kristi, follow up with her PCP and plan of care as prescribed. Patient/Family Education Needs: Review discharge instructions, discuss Ask Me Three. Services Needed at Discharge: Home Health Care Services (RN/PT)
--- NOTE | 2021-02-26 10:00 | PDOC.HHF2F ---
Home Health Certification Home Health Certification: 1. Encounter Date and Reason I certify that Noy Wheeler was seen by Bárbara Mulligan on 02/26/21 and that I had a [id number] encounter with this patient that meets the physician face to face encounter requirements. 2. Clinical Findings Supporting Skilled Need and Homebound Status I certify that home health services are medically necessary, include either intermittent residential and/or physical/speech therapy, and that this patient is homebound in that absences from the home require considerable and taxing effort and are infrequent or of short duration, or are attributable to the need to receive medical care. [X] (a) Attached documentation from encounter provides clinical findings supporting skilled need and homebound status (including what assistance patient requires to leave the home). The encounter with the patient was in whole, or in part, for the following medical condition, which is the primary reason for home health care: Colonic Intussception/colon cancer Chcf: wound care and medications Physical Therapy: strengthening and gait Speech Therapy: Homebound: pt is homebound and cannot drive. she recently had surgery for colon cancer 3. Certification and Authentication I certify that I composed the above information based on my clinical judgement relating to this patient's medical condition and, if applicable, clinical findings communicated to me by the NPP or inpatient physician who performed the Home Health Referral. All further orders will be obtained through [facility] (Community Based Physician - PCP)
== END 2021-02-26 14:03 | disposition home or self-care (01) | DRG 330 ==
LOC: ER 20:22 → MS 21:13 → ICU 02-20 13:55 → MS 02-22 19:53
PROVIDERS: Surgery; Admitting Provider Surgery; Emergency Provider Registered Nurse Emergency; PCP Family Medicine; Visit Provider Surgery
PROC: 0DTF0ZZ Resection of Right Large Intestine, Open Approach (ICD-10-PCS; CPT 49000; principal; 2021-02-20 09:45)
DX: C18.0 Malignant neoplasm of cecum (principal); K56.1 Intussusception; K44.9 Diaphragmatic hernia without obstruction or gangrene; E78.5 Hyperlipidemia, unspecified; Z20.822 Contact with and (suspected) exposure to COVID-19; M81.0 Age-related osteoporosis without current pathological fracture; D50.0 Iron deficiency anemia secondary to blood loss (chronic)
CPT/HCPCS: 44140; 36415; 80048; 80053; 86850; 86900; 86901; 86920; 87635; 97110; 97162; 97530; 99223; 99285; J1650; 74019; 74177; 81288; 82378; 82728; 83540; 83550; 83735; 85025; 88104; 88307; 88309; 88361; 93005; 93010; 94667; J0131; J1100; J1756; J1885; J1941; J2270; J2370; J2405; J2543; J2704; J3475; J3480; J3490; P9016

== ENCOUNTER → 2021-03-05 09:46 | Outpatient (BNVA) | payer OTHER, SELFPAY | PROVIDERS: PCP Family Medicine; Referring Provider Family Medicine; Visit Provider Surgery | DX: C18.2 Malignant neoplasm of ascending colon (principal); K63.89 Other specified diseases of intestine; R19.7 Diarrhea, unspecified; D50.0 Iron deficiency anemia secondary to blood loss (chronic); K56.1 Intussusception | CPT/HCPCS: 99214 ==

== ENCOUNTER 2021-03-05 14:35 | Outpatient (REF) | payer OTHER, SELFPAY ==
[2021-03-05 16:58] LABS: C Diff PCR Negative (Negative)
== END 2021-03-05 14:36 | disposition home or self-care (01) ==
LOC: LBN 14:35
PROVIDERS: PCP Family Medicine; Visit Provider Surgery
DX: C18.2 Malignant neoplasm of ascending colon (principal); K63.89 Other specified diseases of intestine; R19.7 Diarrhea, unspecified
CPT/HCPCS: 87493

== ENCOUNTER → 2021-03-12 10:39 | Outpatient (BNVA) | payer MEDICARE, SELFPAY | PROVIDERS: PCP Family Medicine; Referring Provider Family Medicine; Visit Provider Surgery | DX: Z48.815 Encounter for surgical aftercare following surgery on the digestive system (principal); C18.2 Malignant neoplasm of ascending colon; R19.7 Diarrhea, unspecified; K63.89 Other specified diseases of intestine; D50.0 Iron deficiency anemia secondary to blood loss (chronic) | CPT/HCPCS: 36415 ==

== ENCOUNTER 2021-03-12 12:58 | Outpatient (REF) | payer MEDICARE, SELFPAY ==
[2021-03-12 12:52] LABS: Abs Immature Grans 0.03 10^3/uL (0.0-0.06); Absolute Basophil Count 0.02 10^3/uL (0.0-0.2); Absolute Eosinophil Count 0.11 10^3/uL (0.0-0.7); Absolute Lymphocyte Count 1.47 10^3/uL (1.2-3.4); Absolute Neutrophil Count 3.01 10^3/uL (1.2-6.7); Basophils % 0.4; Eosinophils % 2.2; HCT 33.8 % (36.0-46.0); HGB 9.9 g/dL (11.2-15.7); Immature Grans % 0.6; Lymphocytes % 29.2; MCH 24.6 pg (27.0-33.0); MCHC 29.3 % (32.0-36.0); MCV 83.9 fL (80-95); MPV 11.5 fL (8.0-11.0); Monocytes % 7.9; Neutrophils % 59.7; Nucleated RBC 0 %; Platelet Count 355 10^3/uL (130-400); RBC 4.03 10^6/uL (3.93-5.22); RDW 26.1 % (11.7-14.6); RDW-SD 78.6 fL; WBC 5.04 10^3/uL (4.4-10.8)
[2021-03-12 13:02] LABS: Iron 28 ug/dL (50-170); Total Iron Binding Capacity 332 ug/dL (250-450); Transferrin Sat 8 % (15-50)
[2021-03-12 13:18] LABS: Anion Gap 9.8 mmol/L (3-11); BUN 28 mg/dL (7-18); CO2 25.2 mmol/L (21.0-32.0); Calcium 9.7 mg/dL (8.5-10.1); Chloride 104 mmol/L (98-107); Estimated GFR 52.82 (mL/min/1.73m2); Ferritin 148 ng/mL (8-252); Glucose 85 mg/dL (74-106); Potassium 3.8 mmol/L (3.5-5.1); Sodium 139 mmol/L (136-145)
== END 2021-03-12 12:59 | disposition home or self-care (01) ==
LOC: LBN 12:58
PROVIDERS: PCP Family Medicine; Visit Provider Surgery
DX: C18.2 Malignant neoplasm of ascending colon; D50.0 Iron deficiency anemia secondary to blood loss (chronic); R19.7 Diarrhea, unspecified; D49.2 Neoplasm of unspecified behavior of bone, soft tissue, and skin
CPT/HCPCS: 80048; 82728; 83540; 83550; 85025

== ENCOUNTER → 2021-03-26 09:21 | Outpatient (BNVA) | payer MEDICARE, SELFPAY | PROVIDERS: PCP Family Medicine; Visit Provider Surgery | DX: Z48.815 Encounter for surgical aftercare following surgery on the digestive system (principal); R19.7 Diarrhea, unspecified ==

== ENCOUNTER 2021-03-30 02:44 | Outpatient (CLI) | payer MEDICARE, SELFPAY ==
[2021-03-30 11:24] LABS: HCT 35.7 % (36.0-46.0); HGB 10.6 g/dL (11.2-15.7); MCH 25.4 pg (27.0-33.0); MCHC 29.7 % (32.0-36.0); MCV 85.4 fL (80-95); RBC 4.18 10^6/uL (3.93-5.22); RDW 26.6 % (11.7-14.6); RDW-SD 80.5 fL; WBC 6.35 10^3/uL (4.4-10.8)
[2021-03-30 11:44] LABS: Platelet Count 225 10^3/uL (130-400)
[2021-03-30 12:13] LABS: TSH (W/Ref FT4) 3.72 uIU/mL (0.36-3.74); Vitamin B12 335 pg/mL (193-986)
[2021-03-31 10:46] LABS: Syphilis Serology (RPR) Negative (Negative)
== END 2021-03-30 02:45 | disposition home or self-care (01) ==
LOC: LBO 02:45
PROVIDERS: PCP Family Medicine; Visit Provider Family Medicine
DX: E03.9 Hypothyroidism, unspecified (principal); R41.3 Other amnesia; D64.9 Anemia, unspecified; R53.83 Other fatigue
CPT/HCPCS: 36415; 85027; 82607; 84443; 86592

== ENCOUNTER 2021-07-13 02:15 | Outpatient (CLI) | payer MEDICARE, SELFPAY ==
[2021-07-13 07:57] LABS: Abs Immature Grans 0.01 10^3/uL (0.0-0.06); Absolute Eosinophil Count 0.08 10^3/uL (0.0-0.7); Absolute Lymphocyte Count 1.68 10^3/uL (1.2-3.4); Absolute Monocyte Count 0.38 10^3/uL (0.1-0.8); Absolute Neutrophil Count 2.86 10^3/uL (1.2-6.7); Eosinophils % 1.6; HCT 36.6 % (36.0-46.0); HGB 11.6 g/dL (11.2-15.7); Immature Grans % 0.2; Lymphocytes % 33.5; MCH 30.8 pg (27.0-33.0); MCHC 31.7 % (32.0-36.0); MCV 97.1 fL (80-95); Monocytes % 7.6; Neutrophils % 57.1; Nucleated RBC 0 %; Platelet Count 173 10^3/uL (130-400); RBC 3.77 10^6/uL (3.93-5.22); RDW 15.2 % (11.7-14.6); RDW-SD 54.5 fL; WBC 5.01 10^3/uL (4.4-10.8)
[2021-07-13] MEDS: Omnipaque 350 MG/ML 50 ML BTL PO (08:08)
[2021-07-13] MEDS: Breeza Beverage 473 ML BTL PO ×2 (08:09→08:10)
[2021-07-13 08:10] LABS: ALT 67 U/L (14-59); AST 43 U/L (15-37); Albumin 3.5 g/dL (3.4-5.0); Alkaline Phosphatase 204 U/L (46-116); Anion Gap 7.1 mmol/L (3-11); BUN 27 mg/dL (7-18); Bilirubin, Total 0.5 mg/dL (0.2-1.0); CO2 28.9 mmol/L (21.0-32.0); CREATININE 0.9 mg/dL (0.55-1.02); Calcium 9.1 mg/dL (8.5-10.1); Chloride 105 mmol/L (98-107); Estimated GFR 59.65 (mL/min/1.73m2); Glucose 86 mg/dL (74-106); Sodium 141 mmol/L (136-145)
[2021-07-13] MEDS: Omnipaque 350 MG/ML 100 ML BTL IJ (09:28)
--- NOTE | 2021-07-13 09:31 | DI.CT_ITS ---
Exam(s) CT CHEST/ABD/PEL W EXAM: CT CHEST/ABD/PEL W CLINICAL HISTORY: COLON CA,C18.2,S/P RT HEMICOLECTOMY,STAGING EXAM. TECHNIQUE: Imaging Protocol: Axial computed tomography images with coronal and sagittal reformatted images were created and reviewed CONTRAST MATERIAL: Intravenous: Omnipaque 350 Contrast volume:100 ml Oral: Yes COMPARISON: CT CT ABDOMEN PELVIS W from 02/19/2021 FINDINGS: CHEST: LUNGS: There is a 2-3 millimeter nodule in the right middle lobe. Also another 3-4 millimeter nodule in the anterior basal segment of the right lower lobe, not previously present on the uppermost image s of abdominal CT scan of February 2021. No other right lung nodules. No pleural effusion. Small nodular density noted in the inferior lingular segment lung. No other left lung findings nor pleural effusion. No significant focal findings in the trachea and mainstem bronchi. MEDIASTINUM: There is no hilar nor mediastinal adenopathy. However, there are multiple nodules in the thyroid gland noted. Largest of these appears to be at the junction of the left lobe isthmus. CARDIAC: Heart size is normal. There is no pericardial effusion.Diameter of the ascending thoracic a lucho is slightly prominent, measuring 3.7 cm. No dissection. OSSEOUS: Compression fracture of T8 noted, approximately 50 percent. No lytic osseous lesions identi fied. No canal compromise at this level.. ABDOMEN: There is no ascites. LIVER: The small cyst in the right hepatic lobe again noted, unchanged. This measures 4-5 cm. There are no new significant hepatic lesions. GALLBLADDER/BILIARY: No obvious gallbladder pathology. CBD is not dilated. PANCREAS: No evidence of pancreatic mass nor dilatation of the pancreatic duct. SPLEEN: Spleen is not enlarged. There are no intrasplenic lesions. Splenic and portal veins are prajapati nt. ADRENALS: There are no significant adrenal masses. KIDNEYS: No calculi nor hydronephrosis. No solid renal masses. Small 4 millimeters cyst in the superi or pole the left kidney is unchanged. ABDOMINAL AORTA: Abdominal aorta is not enlarged. LYMPH NODES: There is no retroperitoneal nor paraaortic adenopathy. ABDOMINAL WALL: No evidence of significant anterior abdominal wall nor inguinal hernia. GI: There is no evidence of bowel obstruction. PELVIS: LYMPH NODES: There is no intrapelvic nor inguinal adenopathy. GI: No evidence of appendicitis.No evidence of sigmoid diverticulitis. URINARY BLADDER: No calculi nor masses evident REPRODUCTIVE: There is abnormal thickening and what appears to be a mass with in the endometrial cavi ty near the fundus level. OSSEOUS: Compression fractures of L1 and L2 are unchanged. IMPRESSION: 1. There are 2 small nodules in the anterior right lung base-right middle lobe as described above, no t evident on the uppermost images of prior CT scan of abdomen performed February 2021 and therefore requiring for close follow-up to rule out metastatic disease. There are no pleural effusions and no intrathoracic adenopathy evident 2. Thyroid nodules evident which can be further studied with ultrasound. 3. Compression fractures L1 and L2 are unchanged. Compression fracture of T8 noted which there are n o previous for comparison. 4. Abnormal thickening with probable mass in the endometrial cavity of the uterus, possibly malignant . Recommend follow-up ultrasound. There are no abnormal adnexal masses and is no free fluid in the pelvis. RADIATION DOSE DELIVERED: 946.18mGy.cm Total DLP DATA REPOSITORY: All CT scans at this facility are submitted to the National Radiology Data Registry (NRDR) Dose Index Registry (DIR) with the [employer] (ACR). RADIATION OPTIMIZATION: All CT scans at this facility use at least one of these dose optimization te chniques: automated exposure control; mA and/or kV adjustment per patient size (includes targeted exa ms where dose is matched to clinical indication); or iterative reconstruction.
[2021-07-13 19:00] LABS: CEA 1.3 ng/mL (See Note)
== END 2021-07-13 02:35 ==
PROVIDERS: PCP Family Medicine; Visit Provider Internal Medicine Hematology & Oncology
DX: C18.2 Malignant neoplasm of ascending colon (principal); R91.1 Solitary pulmonary nodule; R91.8 Other nonspecific abnormal finding of lung field; E04.2 Nontoxic multinodular goiter; K76.89 Other specified diseases of liver; N28.1 Cyst of kidney, acquired; R19.09 Other intra-abdominal and pelvic swelling, mass and lump; Z90.49 Acquired absence of other specified parts of digestive tract
CPT/HCPCS: 74177; 80053; 71260; 82378; 85025; J3490; Q9967

== ENCOUNTER 2021-07-29 00:29 | Outpatient (CLI) | payer MEDICARE, SELFPAY ==
--- NOTE | 2021-07-29 | DI.US_ITS ---
Exam(s) US TRANSVAGINAL EXAM: US TRANSVAGINAL CLINICAL HISTORY: COLON CANCER C18.2, POISSIBLE UTERINE MASS SEEN ON CT. TECHNIQUE: transvaginal imaging was performed using standard protocol. COMPARISON: CT CT CHEST/ABD/PEL W from 07/13/2021 FINDINGS: KIDNEYS: Not imaged UTERUS: Position: Anteverted. Size: 5.9 x 2.3 x 4.1 cm no fibroid seen. Endometrium: 11 millimeters in thickness. Markedly heterogeneous. No blood flow detected. Myometrium: Unremarkable. Cervix: Unremarkable. OVARIES: Not visualized. CUL-DE-SAC: Free fluid: None. IMPRESSION: Markedly thickened heterogeneous endometrium could indicate polyps or hyperplasia. Malignancy not ex cluded. Biopsy recommended for further evaluation. DATA REPOSITORY:
== END 2021-07-29 00:49 ==
PROVIDERS: PCP Family Medicine; Visit Provider Internal Medicine Hematology & Oncology
DX: C18.2 Malignant neoplasm of ascending colon (principal); R93.89 Abnormal findings on diagnostic imaging of other specified body structures
CPT/HCPCS: 76830

== ENCOUNTER 2021-08-17 13:43 | Outpatient (REF) | payer MEDICARE, SELFPAY ==
--- NOTE | 2021-08-17 10:00 | ENDOMET_PTH ---
PATIENT: Noy Wheeler LOC: [facility] U#:[id number] AGE/SX: 86/F ROOM: RE08/17/[address]: Melissa Corral DO : 1935 BED: DIS: 08/17/2021 SPEC #: [id number] RECD: 08/17/21 13:51 STATUS: FABIOLA REQ #: [id number] CRAIG: 08/17/21 10:[address]: Melissa Corral DEPT: Surgical Specimen RECD BY: Sissy Anaya ENTERED: 08/17/21 13:51 SP TYPE: Endomet OTHR DR: Eligio Maddox MD Tissues: 1 - ENDOMETRIUM BX/CURRETTE Procedures: GROSS AND MICRO LEVEL 4 IMMUNOPEROXIDASE STAIN P16 IPEX Comments: [id number]
== END 2021-08-17 13:44 | disposition home or self-care (01) ==
LOC: LBN 13:43
PROVIDERS: PCP Family Medicine; Visit Provider Obstetrics & Gynecology
DX: N85.00 Endometrial hyperplasia, unspecified (principal)
CPT/HCPCS: 88305; 88342; 88361

== ENCOUNTER → 2021-10-12 00:29 | Outpatient (CLI) | payer MEDICARE, SELFPAY ==
--- NOTE | 2021-10-12 09:15 | DI.CT_ITS ---
Exam(s) CT CHEST WO EXAM: CT CHEST WO CLINICAL HISTORY: H/O ASCENDING COLON CA, C18.2; LUNG NODULES ON CHEST CT, R91.8 TECHNIQUE: Imaging Protocol: Axial computed tomography images with coronal and sagittal reformatted images were created and reviewed CONTRAST MATERIAL: Intravenous: Omnipaque 350 Contrast volume:structured data in ml. COMPARISON: CT CT ABDOMEN PELVIS W from 02/19/[address] CHEST/ABD/PEL W from 07/13/2021 FINDINGS: Tracheobronchial tree: No bronchiectasis or mucous plugging. Mediastinum and Kasey: No dominant adenopathy or fluid collection. Pulmonary parenchyma: Apical scarring. Stable 2 millimeter nodule right middle lobe. Stable tiny no dule adjacent to the major fissure, in the anteroinferior right lower lobe. Scarring inferolateral l ingula. No consolidation or dominant measurable mass. Pleura: No effusion or pneumothorax. Heart: The heart is not dilated. No coronary artery calcifications are seen. Aorta: Ascending aorta 3.9 cm. Calcification. Upper abdomen: Unremarkable. Lymph nodes: Within normal limits. Bones: Stable T8 and L1 compression fractures. The Soft tissues: Unremarkable. IMPRESSION: Stable tiny nodules right middle and lower lobes. Stable T8 and L1 compression fractures. RADIATION DOSE DELIVERED: 310.15mGy.cm Total DLP DATA REPOSITORY: All CT scans at this facility are submitted to the National Radiology Data Registry (NRDR) Dose Index Registry (DIR) with the [employer] (ACR). RADIATION OPTIMIZATION: All CT scans at this facility use at least one of these dose optimization te chniques: automated exposure control; mA and/or kV adjustment per patient size (includes targeted exa ms where dose is matched to clinical indication); or iterative reconstruction.
== END ==
PROVIDERS: PCP Family Medicine; Visit Provider Internal Medicine Hematology & Oncology
DX: R91.8 Other nonspecific abnormal finding of lung field (principal); C18.2 Malignant neoplasm of ascending colon; J98.4 Other disorders of lung
CPT/HCPCS: 71250

== ENCOUNTER 2021-10-12 01:41 | Outpatient (CLI) | payer MEDICARE, SELFPAY ==
[2021-10-12 08:52] LABS: Abs Immature Grans 0.01 10^3/uL (0.0-0.06); Absolute Basophil Count 0.02 10^3/uL (0.0-0.2); Absolute Eosinophil Count 0.07 10^3/uL (0.0-0.7); Absolute Lymphocyte Count 2.26 10^3/uL (1.2-3.4); Absolute Monocyte Count 0.42 10^3/uL (0.1-0.8); Absolute Neutrophil Count 4.21 10^3/uL (1.2-6.7); Basophils % 0.3; HCT 41.3 % (36.0-46.0); HGB 13.2 g/dL (11.2-15.7); Immature Grans % 0.1; Lymphocytes % 32.3; MCV 100 fL (80-95); MPV 11.8 fL (8.0-11.0); Neutrophils % 60.3; Platelet Count 194 10^3/uL (130-400); RBC 4.12 10^6/uL (3.93-5.22); RDW 13.3 % (11.7-14.6); RDW-SD 49.1 fL; WBC 6.99 10^3/uL (4.4-10.8)
[2021-10-12 09:06] LABS: ALT 66 U/L (14-59); AST 42 U/L (15-37); Albumin 3.7 g/dL (3.4-5.0); Alkaline Phosphatase 222 U/L (46-116); Anion Gap 8.1 mmol/L (3-11); BUN 29 mg/dL (7-18); Bilirubin, Total 0.5 mg/dL (0.2-1.0); CO2 26.9 mmol/L (21.0-32.0); CREATININE 1.2 mg/dL (0.55-1.02); Calcium 9.3 mg/dL (8.5-10.1); Chloride 106 mmol/L (98-107); Glucose 143 mg/dL (74-106); Potassium 3.6 mmol/L (3.5-5.1); Sodium 141 mmol/L (136-145); Total Protein 7.6 g/dL (6.4-8.2)
[2021-10-12 19:14] LABS: CEA 1.4 ng/mL (See Note)
== END 2021-10-12 01:42 | disposition home or self-care (01) ==
LOC: LBO 01:41
PROVIDERS: PCP Family Medicine; Visit Provider Internal Medicine Hematology & Oncology
DX: C18.2 Malignant neoplasm of ascending colon (principal)
CPT/HCPCS: 36415; 80053; 82378; 85025

== ENCOUNTER 2022-01-07 11:17 | Outpatient (CLI) | payer MEDICARE, SELFPAY ==
[2022-01-07 12:24] LABS: Abs Immature Grans 0.01 10^3/uL (0.0-0.06); Absolute Basophil Count 0.01 10^3/uL (0.0-0.2); Absolute Eosinophil Count 0.03 10^3/uL (0.0-0.7); Absolute Lymphocyte Count 1.39 10^3/uL (1.2-3.4); Absolute Neutrophil Count 4.41 10^3/uL (1.2-6.7); Basophils % 0.2; Eosinophils % 0.5; HCT 40.3 % (36.0-46.0); HGB 12.9 g/dL (11.2-15.7); Immature Grans % 0.2; Lymphocytes % 22.2; MCH 31.8 pg (27.0-33.0); MCV 99 fL (80-95); Monocytes % 6.4; Neutrophils % 70.5; Platelet Count 182 10^3/uL (130-400); RBC 4.06 10^6/uL (3.93-5.22); RDW 12.8 % (11.7-14.6); RDW-SD 46.5 fL; WBC 6.25 10^3/uL (4.4-10.8)
[2022-01-07 12:41] LABS: ALT 42 U/L (14-59); AST 29 U/L (15-37); Albumin 3.7 g/dL (3.4-5.0); Alkaline Phosphatase 176 U/L (46-116); Anion Gap 6.5 mmol/L (3-11); BUN 23 mg/dL (7-18); Bilirubin, Total 0.5 mg/dL (0.2-1.0); CO2 30.5 mmol/L (21.0-32.0); Calcium 9.6 mg/dL (8.5-10.1); Chloride 101 mmol/L (98-107); Estimated GFR 52.82 (mL/min/1.73m2); Glucose 124 mg/dL (74-106); Potassium 3.9 mmol/L (3.5-5.1); Sodium 138 mmol/L (136-145); Total Protein 7.7 g/dL (6.4-8.2)
[2022-01-08 08:45] LABS: CEA 1.2 ng/mL (See Note)
== END 2022-01-07 11:18 | disposition home or self-care (01) ==
LOC: LOS 11:18
PROVIDERS: PCP Family Medicine; Referring Provider Family Medicine; Visit Provider Family Medicine
DX: D64.9 Anemia, unspecified (principal); R10.9 Unspecified abdominal pain; C18.2 Malignant neoplasm of ascending colon
CPT/HCPCS: 36415; 80053; 82378; 85025

== ENCOUNTER 2022-03-12 16:57 | Outpatient (CLI) | payer MEDICARE, SELFPAY ==
--- NOTE | 2022-03-12 16:45 | RT.EKG_ITS ---
APPROVED REPORT Exam: Resting ECG Reason for Exam: Chest pain/high BP Patient Location: O HR:70 bpm ECG Measurements Heart Rate 70 AXIS AK 143 P 69 QRSd 143 QRS 79 QT 456 T 54 QTc 493 Conclusion Sinus rhythm...normal P axis, V-rate 50- 99 Ventricular premature complex...V complex w/ short R-R interval Right bundle branch block...QRSd>120, terminal axis(90,270)
== END 2022-03-12 16:58 | disposition home or self-care (01) ==
LOC: DI.CM 16:58
PROVIDERS: PCP Family Medicine; Visit Provider Physician Assistant
DX: R07.89 Other chest pain (principal); I10 Essential (primary) hypertension; R94.31 Abnormal electrocardiogram [ECG] [EKG]
CPT/HCPCS: 93010

== ENCOUNTER 2022-04-08 00:07 | Emergency (ER) | payer MEDICARE, SELFPAY ==
[2022-04-08] VITALS (12 sets, daily range): BP systolic 111–158; BP diastolic 61–87; PULSE 72–91; RESP 16; TEMP 36.9–37; O2SAT 90–98
--- NOTE | 2022-04-08 | RT.EKG_ITS ---
APPROVED REPORT Exam: Resting ECG Reason for Exam: chest pain Patient Location: E HR:82 bpm ECG Measurements Heart Rate 82 AXIS MA 142 P 51 QRSd 134 QRS 80 QT 428 T 29 QTc 499 Conclusion Sinus rhythm...normal P axis, V-rate 60- 99 Right bundle branch block...QRSd>120, terminal axis(90,270) Nonspecific T abnormalities, lateral leads...T <-0.10mV, I aVL V5 V6 sinus rhtyhm, normal axis, normal intervals, RBBB unchanged, st depressions lateral, consider repol
--- NOTE | 2022-04-08 00:15 | DI.CT_ITS ---
Exam(s) CT ABDOMEN PELVIS W EXAM: CT ABDOMEN PELVIS W INDICATION: RUQ pain. COMPARISON: CT CT CHEST/ABD/PEL W from 07/13/2021 TECHNIQUE: FINDINGS: CT examination of the abdomen and pelvis was performed with intravenous infusion of 80 cc of Omnipaqu e 350. Images obtained through the lung bases show bronchiectasis and atelectasis of right middle lobe perio d superimposed consolidation not excluded. Small right pleural effusion noted period. The liver is unremarkable in appearance. Gallbladder and bile ducts are CT normal. Pancreas appears normal. Spleen is unremarkable in appearance. Adrenals appear normal. The kidneys are unremarkable with no evidence of hydronephrosis, nephrolithiasis, or renal mass.. Ur inary bladder unremarkable. Abdominal aorta is of normal diameter and no major vascular abnormality is seen. No abdominal wall hernia. No abdominal or pelvic adenopathy. There is mass-like enhancement in the endometrial cavity, findings would be worrisome for neoplasm in postmenopausal patient. Correlation with pelvic ultrasound recommended. Prior partial right colectomy noted. No evidence of diverticulitis or bowel obstruction. IMPRESSION: Right middle pulmonary lobe atelectasis and/or consolidation. Findings suggesting enhancing mass lesion in endometrial cavity, pelvic ultrasound suggested to evalu ate the possibility of a neoplastic mass RADIATION DOSE DELIVERED: 556.48mGy.cm Total DLP 556.48mGy.cm Total DLP !Error CTDIvol RADIATION OPTIMIZATION: All CT scans at this facility use at least one of these dose optimization te chniques: automated exposure control; mA and/or kV adjustment per patient size (includes targeted exa ms where dose is matched to clinical indication); or iterative reconstruction.
--- NOTE | 2022-04-08 00:15 | DI.RAD_ITS ---
Exam(s) XR CHEST 1V IN DI DEPT EXAM: XR CHEST 1V IN DI DEPT CLINICAL HISTORY: right rib pain TECHNIQUE: COMPARISON: No exams were available for comparison FINDINGS: CT examination obtained today showed areas of right middle lobe consolidation and/or atelectasis terrence cent to the right cardiac border. This is not clearly appreciated on this portable AP view. Lungs o therwise appear clear. Cardiac size at upper limits of normal. IMPRESSION: RADIATION DOSE DELIVERED: Total DLP
--- NOTE | 2022-04-08 00:27 | W.ED.GENAD ---
Discharge Plan Disposition Patient Disposition: HOME Condition: Improving Discharge Details Clinical Impression: Lung consolidation Primary Care Provider: Eligio Maddox ED Provider: Sohail Byrne Home Meds and New Rx's Prescriptions: New azithromycin 250 mg tablet 250 mg PO DAILY 4 Days Qty: 4 0RF Rx Instructions: start on day 2 of therapy amoxicillin 500 mg capsule 500 mg PO Q8H 5 Days Qty: 15 0RF No Action Bio-K plus 50 billion cell capsule,delayed release(DR/EC) 1 cap PO DAILY Qty: 30 0RF ferrous sulfate [Terry-Time] 325 mg (65 mg iron) tablet 325 mg PO BID Qty: 180 3RF diphenoxylate-atropine [Lomotil] 2.5-0.025 mg tablet 1 tab PO BID PRN (Reason: diarrhea) Qty: 30 5RF Boost 0.04 gram- 1 kcal/mL liquid 237 ml PO TID Qty: 6399 5RF CENTRUM SILVER TABLET 1 EACH tablet 1 ea PO DAILY cholecalciferol (vitamin D3) [Vitamin D3] 400 UNIT capsule 800 unit PO DAILY Aspirin/Acetaminophen/Caffeine [Excedrin Extra Strength Caplet] 1 EACH tablet 1 ea PO PRN PRN losartan 25 mg tablet 25 mg PO DAILY Qty: 30 2RF Discharge Instructions Instructions: Pneumonia (ED) Additional Instructions: Please follow with your primary care physician. Please return to the emergency department for any worsening symptoms. Medical Decision Making 87-year-old female history of colon cancer, hyperlipidemia, presents with right upper quadrant abdominal pain/right rib pain/chest pain over the past several hours. No nausea no vomit shortness of breath. Hemodynamically stable not tachycardic not tachypneic. Normal lung sounds bilaterally. Normal inspection of chest wall no palpable deformity to ribs. Does have mild right upper quadrant discomfort on palpation without guarding or rebounding. Nondistended. Consider biliary colic versus early cholecystitis versus pneumonia versus pneumothorax versus pleurisy versus costochondritis versus ACS versus less likely PE or aortic pathology. Screening labs imaging fluids patient does not want a thing for pain at this point. Close reassessment disposition pending results 3:01 patient resting comfortably no acute distress. Ambulatory with assistance. Possible atelectasis versus early consolidation right middle lobe. Will start empirically on azithromycin and amoxicillin. Patient and care provider feel comfortable going home. Given home care instructions and return precautions. HPI General Date/Time Provider Initiated Documentation: 04/08/22 00:19. HPI Narrative: 87-year-old female history of colon cancer, hyperlipidemia, anemia, presents with right upper abdominal pain/right rib pain/chest discomfort over the past several hours. No nausea no vomiting no anterior chest pain no shortness of breath. Normal p.o. intake and bowel movements. Accompanied by her home health aide. Related Data Home Medications Medication Instructions Recorded Confirmed Centrum Silver Tablet 1 ea PO DAILY 01/13/13 04/08/22 cholecalciferol (vitamin D3) 10 800 unit PO DAILY 09/14/16 04/08/22 mcg (400 unit) capsule (Vitamin D3) Aspirin/Acetaminophen/Caffeine 1 ea PO PRN PRN 02/23/17 04/08/22 [Excedrin Extra Strength Caplet] L. acidophilus,casei,rhamnosus 50 1 cap PO DAILY #30 caps 03/05/21 04/08/22 billion cell capsule,delayed release (Bio-K plus) food supplemt, lactose-reduced 237 ml PO TID #6,399 mL 06/19/21 04/08/22 0.04 gram-1 kcal/mL oral liquid (Boost) ferrous sulfate 325 mg (65 mg 325 mg PO BID #180 tabs 01/07/22 04/08/22 iron) tablet (Terry-Time) losartan 25 mg tablet 25 mg PO DAILY #30 tabs 02/10/22 04/08/22 diphenoxylate-atropine 2.5 1 tab PO BID PRN diarrhea #30 tabs 03/30/22 04/08/22 mg-0.025 mg tablet (Lomotil) amoxicillin 500 mg capsule 500 mg PO Q8H 5 days #15 caps 04/08/22 azithromycin 250 mg tablet 250 mg PO DAILY 4 days #4 tabs 04/08/22 Previous Rx's Medication Instructions Recorded L. acidophilus,casei,rhamnosus 50 1 cap PO DAILY #30 caps 03/05/21 billion cell capsule,delayed release (Bio-K plus) food supplemt, lactose-reduced 237 ml PO TID #6,399 mL 06/19/21 0.04 gram-1 kcal/mL oral liquid (Boost) ferrous sulfate 325 mg (65 mg 325 mg PO BID #180 tabs 01/07/22 iron) tablet (Terry-Time) losartan 25 mg tablet 25 mg PO DAILY #30 tabs 02/10/22 diphenoxylate-atropine 2.5 1 tab PO BID PRN diarrhea #30 tabs 03/30/22 mg-0.025 mg tablet (Lomotil) amoxicillin 500 mg capsule 500 mg PO Q8H 5 days #15 caps 04/08/22 azithromycin 250 mg tablet 250 mg PO DAILY 4 days #4 tabs 04/08/22 Allergies Allergy/AdvReac Type Severity Reaction Status Date / Time No Known Allergies Allergy Verified 03/30/22 09:33 General Stated Complaint: Chest/Rib GER[place]: 3 Review of Systems Narrative: Review of Systems Constitutional: negative Eyes: negative ENT: negative Cardiovascular: negative Respiratory: negative Gastrointestinal: Abdominal pain : negative Musculoskeletal: Rib pain Skin: negative Neurologic: negative Psych: negative PFSH All Active Problems (Updated 04/08/22 @ 03:02 by Sohail Byrne MD) Lung consolidation (Acute) Elevated blood pressure reading (Acute) Diarrhea (Acute) Memory loss (Acute) Acute diarrhea (Acute) Colon cancer (Chronic) Mass of small intestine (Acute) Iron deficiency anemia due to chronic blood loss (Acute) Intussusception of colon (Acute) Abdominal pain (Acute) Anemia (Chronic) GI (gastrointestinal bleed) (Chronic) Actinic keratosis (Acute) Visit for suture removal (Acute) Chest pain (Acute 05/05/02) Ear pain, left (Acute) Back pain (Acute) Dysplastic skin lesion (Acute 02/11/15) raised, pearly lesion behind left ear Osteoporosis (Acute) Osteoarthritis of hand (Acute 02/01/14) Idiopathic urticaria (Acute 02/11/15) Hyperlipidemia with target LDL less than 100 (Acute 01/26/13) Neoplasm of skin (Acute) return for punch biopsy as scheduled Medical History Hiatal hernia Large on CT 02/19/21 Hyperlipidemia Osteoarthritis Family History Mother , GI BLEED at age 86. Essential hypertension Father , age 79 Pulmonary fibrosis CHF (congestive heart failure) Heart disease Sister , age 72 Essential hypertension Hyperlipidemia Liver cancer Maternal Grandfather No problems noted. Paternal Grandfather No problems noted. Maternal Grandmother Cancer Paternal Grandmother No problems noted. Brother , age 80? Pancreatic cancer Brother , age 60? Heart disease Sister No problems noted. Social History Smoking/Tobacco Use Status: Never Smoking risk assessment performed?: Yes Alcohol Intake: never Drug use: Never Substance use type: does not use Caregiver/Support person: No Household members: none Communication Needs: None Do you need help understanding health information?: Never Pets and animals: No Sexually active: No Do you think of yourself as: straight/heterosexual What is your relationship status?: How often do you talk on the phone with friends or family?: three or more times per week How often do you get together with friends or relatives?: three or more times per week How often do you attend zoroastrianism or yazidism services?: 1-3 times per year Do you belong to any clubs or organized social groups?: no Panel score (0-1 are the most socially isolated patients): 1 What type of physical activity do you participate in: other Details: Bone [employer] and decline to answer Duration: decline to answer Frequency: 1-2 times per week Johanne/Confucianism: No preference Special johanne needs: No Seatbelt use: always Helmet use: Yes Helmet use: always Drive intox or ride w/intox after school driver: No Do you feel safe at home: Yes Do you feel safe in your relationship?: Yes Exam Narrative Exam Narrative: Physical Examination General: alert, awake, cooperative, resting comfortably, no acute distress HEENT: normocephalic, atraumatic; PERRL, EOM intact, conjunctiva normal; no nasal discharge; moist mucous membranes, oral and pharyngeal mucosa normal, tolerating secretions Neck: supple, trachea midline; full ROM Chest: normal to inspection; Respiratory: normal respiratory effort, speaking in full sentences, clear to auscultation, no wheezing, rales or rhonchi Cardiac: regular rate, regular rhythm, S1S2 intact, no murmurs rubs or gallops GI: abdomen soft, mild discomfort right upper quadrant without guarding or rebounding, non-distended; no palpable mass or hepatosplenomegaly Normal ribs on palpation Skin: no lesions, rashes or trauma appreciated Neuro: AAOx3, normal speech, moving all extremities Psych: Appropriate mood and affect Course Vital Signs Vital signs: Vital Signs Temperature 37 C 04/08/22 00:06 Pulse 91 H 04/08/22 00:06 Respiratory Rate 16 04/08/22 00:06 Blood Pressure 156/80 H 04/08/22 00:06 Pulse Oximetry 98 04/08/22 00:06 Temperature 37 C 04/08/22 00:06 Temperature Source Oral 04/08/22 00:06 Pulse 91 H 04/08/22 00:06 Respiratory Rate 16 04/08/22 00:06 Respiratory Effort 04/08/22 00:22 Respiratory Depth Normal 04/08/22 00:22 Respiratory Pattern Normal 04/08/22 00:22 Blood Pressure 156/80 H 04/08/22 00:06 Blood Pressure Position Supine 04/08/22 00:06 Pulse Oximetry 98 04/08/22 00:06 Oxygen Delivery Method Room Air 04/08/22 00:06 Oxygen Flow Rate 0 04/08/22 00:06 Pain Level 0 04/08/22 00:06
[2022-04-08] MEDS: Normal Saline 500 ML 1000 ML IV (00:30)
[2022-04-08 00:33] LABS: Abs Immature Grans 0.03 10^3/uL (0.0-0.06); Absolute Basophil Count 0.02 10^3/uL (0.0-0.2); Absolute Eosinophil Count 0.28 10^3/uL (0.0-0.7); Absolute Lymphocyte Count 1.28 10^3/uL (1.2-3.4); Absolute Monocyte Count 0.47 10^3/uL (0.1-0.8); Absolute Neutrophil Count 7.19 10^3/uL (1.2-6.7); Basophils % 0.2; HGB 11.5 g/dL (11.2-15.7); Immature Grans % 0.3; Lymphocytes % 13.8; MCH 32.1 pg (27.0-33.0); MCHC 31.9 % (32.0-36.0); MCV 101 fL (80-95); MPV 11.7 fL (8.0-11.0); Monocytes % 5.1; Neutrophils % 77.6; Platelet Count 164 10^3/uL (130-400); RBC 3.58 10^6/uL (3.93-5.22); RDW 13.2 % (11.7-14.6); RDW-SD 49.2 fL; WBC 9.27 10^3/uL (4.4-10.8)
[2022-04-08 01:00] LABS: Lipase 146 U/L (73-393); Troponin I < 50 ng/L (<or=60)
[2022-04-08 01:24] LABS: ALT 51 U/L (14-59); AST 42 U/L (15-37); Albumin 3.5 g/dL (3.4-5.0); Alkaline Phosphatase 213 U/L (46-116); Anion Gap 6.6 mmol/L (3-11); BUN 24 mg/dL (7-18); Bilirubin, Total 0.4 mg/dL (0.2-1.0); CO2 28.4 mmol/L (21.0-32.0); CREATININE 0.9 mg/dL (0.55-1.02); Calcium 9.2 mg/dL (8.5-10.1); Chloride 105 mmol/L (98-107); Estimated GFR 62.65 (mL/min/1.73m2); Glucose 91 mg/dL (74-106); Potassium 3.9 mmol/L (3.5-5.1); Sodium 140 mmol/L (136-145); Total Protein 7.3 g/dL (6.4-8.2)
--- NOTE | 2022-04-08 01:46 | NUR.NOTE ---
O2 removed upon pt arrival per MD. Pt sats = 93-97 on RA.
[2022-04-08 02:02] LABS: Bilirubin Negative (Negative); Blood Negative (Negative); Clarity Clear (Clear); Glucose Negative (Negative); Ketones Negative (Negative); Leukocyte Esterase Negative (Negative); Nitrite Negative (Negative); Urobilinogen 0.2 EU/dL (Up TO 0.2)
--- NOTE | 2022-04-08 02:16 | DI.VRAD_ITS ---
PROCEDURE INFORMATION: Exam: XR Chest Exam date and time: 04/08/2022 1:47 AM Age: 87 years old Clinical indication: Other: Right rib pain TECHNIQUE: Imaging protocol: Radiologic exam of the chest. Views: 1 view. COMPARISON: CT CHEST WO 10/12/2021 9:01 AM FINDINGS: Lungs: Unremarkable. No consolidation. Pleural spaces: Unremarkable. No pleural effusion. No pneumothorax. Heart/Mediastinum: Unremarkable. No cardiomegaly. Bones/joints: Unremarkable. IMPRESSION: No acute findings. Dictated and Authenticated by: Rudi Golden MD. Ordering:MICHAEL Sauceda MD
--- NOTE | 2022-04-08 02:19 | DI.VRAD_ITS ---
PROCEDURE INFORMATION: Exam: CT Abdomen And Pelvis With Contrast Exam date and time: 04/08/2022 1:27 AM Age: 87 years old Clinical indication: Other: Ruq pain TECHNIQUE: Imaging protocol: Computed tomography of the abdomen and pelvis with contrast. Radiation optimization: All CT scans at this facility use at least one of these dose optimization techniques: automated exposure control; mA and/or kV adjustment per patient size (includes targeted exams where dose is matched to clinical indication); or iterative reconstruction. Contrast material: OMNIPAQUE 350; Contrast volume: 80 ml; Contrast route: INTRAVENOUS (IV); COMPARISON: CT CHEST/ABD/PEL W 07/13/2021 9:29 AM FINDINGS: Lungs: Minimal right middle lobe atelectasis/consolidation. Liver: Normal. No mass. Gallbladder and bile ducts: Normal. No calcified stones. No ductal dilation. Pancreas: Normal. No ductal dilation. Spleen: Normal. No splenomegaly. Adrenal glands: Normal. No mass. Kidneys and ureters: Normal. No hydronephrosis. Stomach and bowel: Unremarkable. No obstruction. No mucosal thickening. Appendix: No evidence of appendicitis. Intraperitoneal space: Unremarkable. No free air. No significant fluid collection. Vasculature: Unremarkable. No abdominal aortic aneurysm. Lymph nodes: Unremarkable. No enlarged lymph nodes. Urinary bladder: Unremarkable as visualized. Reproductive: Intracavitary submucosal fibroid versus endometrial polyp suggested within the uterus, sonogram can be obtained for further evaluation as clinically warranted. Bones/joints: Unremarkable. No acute fracture. Soft tissues: Unremarkable. IMPRESSION: 1. Minimal right middle lobe atelectasis/consolidation. 2. Intracavitary submucosal fibroid versus endometrial polyp suggested within the uterus, sonogram can be obtained for further evaluation as clinically warranted. Dictated and Authenticated by: Rudi Golden MD. Ordering:MICHAEL Sauceda MD
[2022-04-08] MEDS: Amoxicillin 500 MG CAP PO (03:06)
[2022-04-08] MEDS: Azithromycin 250 MG TAB 500 MG PO (03:06)
--- NOTE | 2022-04-08 11:36 | NUR.NOTE ---
family day care provider questioning prescription. clarified with person where prescriptions were sent:
== END 2022-04-08 03:23 | disposition home or self-care (01) ==
PROVIDERS: Emergency Provider Emergency Medicine; PCP Family Medicine
DX: J18.1 Lobar pneumonia, unspecified organism (principal); R10.11 Right upper quadrant pain; R07.89 Other chest pain
CPT/HCPCS: 36415; 80053; 83690; 93005; 96360; 99285; 71045; 74177; 81003; 84484; 85025; 93010; 99284

== ENCOUNTER → 2022-04-16 00:50 | Outpatient (CLI) | payer MEDICARE, SELFPAY ==
--- NOTE | 2022-04-16 08:15 | DI.US_ITS ---
Exam(s) US PELVIS TRANSVAGINAL EXAM: US PELVIS TRANSVAGINAL CLINICAL HISTORY: endometrial lesion, N94.89 TECHNIQUE: Transabdominal and transvaginal imaging was performed using standard protocol. COMPARISON: CT CT ABDOMEN PELVIS W from 04/08/2022 FINDINGS: UTERUS: Anteverted. 5.9 x 2.3 x 4 cm Endometrium: 1.5 Cm, heterogeneous, markedly thickened for postmenopausal patient. No vascularity. Myometrium: Unremarkable. Cervix: Unremarkable. OVARIES: Right: Cyst or mass: Not visualized Left: Cyst or mass: Not visualized CUL-DE-SAC: Free fluid: None. IMPRESSION: 1. Markedly thickened heterogeneous endometrium. Biopsy recommended. 2. Ovaries were not visualized. DATA REPOSITORY:
== END ==
PROVIDERS: PCP Family Medicine; Visit Provider Family Medicine
DX: N94.89 Other specified conditions associated with female genital organs and menstrual cycle (principal)
CPT/HCPCS: 76830; 76856

== ENCOUNTER 2022-06-14 03:17 | Outpatient (CLI) | payer MEDICARE, SELFPAY ==
[2022-06-14 10:57] LABS: Absolute Basophil Count 0.01 10^3/uL (0.0-0.2); Absolute Eosinophil Count 0.05 10^3/uL (0.0-0.7); Absolute Lymphocyte Count 1.37 10^3/uL (1.2-3.4); Absolute Monocyte Count 0.32 10^3/uL (0.1-0.8); Absolute Neutrophil Count 3.27 10^3/uL (1.2-6.7); Basophils % 0.2; HCT 37.8 % (36.0-46.0); HGB 12.3 g/dL (11.2-15.7); Lymphocytes % 27.3; MCH 32.2 pg (27.0-33.0); MCHC 32.5 % (32.0-36.0); MCV 99 fL (80-95); MPV 11.9 fL (8.0-11.0); Monocytes % 6.4; Neutrophils % 65.1; Platelet Count 161 10^3/uL (130-400); RBC 3.82 10^6/uL (3.93-5.22); RDW 12.9 % (11.7-14.6); RDW-SD 47.2 fL; WBC 5.02 10^3/uL (4.4-10.8)
== END 2022-06-14 03:18 | disposition home or self-care (01) ==
LOC: LBO 03:17
PROVIDERS: PCP Family Medicine; Visit Provider Obstetrics & Gynecology
DX: Z01.818 Encounter for other preprocedural examination (principal)
CPT/HCPCS: 36415; 86850; 86900; 86901; 85025

== ENCOUNTER 2022-06-14 14:42 | Outpatient (REF) | payer MEDICARE, SELFPAY ==
[2022-06-14 11:36] LABS: Source Nasal/Nares
[2022-06-14 12:28] LABS: COVID-19 PCR Negative (Negative)
== END 2022-06-14 14:43 | disposition home or self-care (01) ==
LOC: LBN 14:42
PROVIDERS: PCP Family Medicine; Visit Provider Obstetrics & Gynecology
DX: Z01.818 Encounter for other preprocedural examination (principal); Z20.822 Contact with and (suspected) exposure to COVID-19
CPT/HCPCS: 87635

== ENCOUNTER 2022-06-16 09:16 | Day surgery (SDC) | payer MEDICARE, SELFPAY ==
[2022-06-16 09:50] VITALS: BP 136/91; PULSE 67; RESP 16; TEMP 36.4; O2SAT 99
[2022-06-16] MEDS: Lactated Ringers 1,000 ML 125 ML IV (10:31)
--- NOTE | 2022-06-16 10:57 | W.ANESPRE ---
General Info Date of Service Date Performed: 06/16/22 Height: 5 ft 4 in Weight: 46.1 kg Body Mass Index (BMI): 17.4 Surgical Procedure: Operation Date: 06/16/22 11:10 Proposed Procedure Side Surgeon p Dilation & Curettage with Hysteroscopy Melissa Corral DO Meds Allergies and Home Medications Allergies Allergy/AdvReac Type Severity Reaction Status Date / Time No Known Allergies Allergy Verified 06/15/22 11:56 Home Medication Medication Instructions Recorded Centrum Silver Tablet 1 ea PO DAILY 01/13/13 cholecalciferol (vitamin D3) 10 800 unit PO DAILY 09/14/16 mcg (400 unit) capsule (Vitamin D3) Aspirin/Acetaminophen/Caffeine 1 ea PO PRN PRN 02/23/17 [Excedrin Extra Strength Caplet] L. acidophilus,casei,rhamnosus 50 1 cap PO DAILY #30 caps 03/05/21 billion cell capsule,delayed release (Bio-K plus) ferrous sulfate 325 mg (65 mg 325 mg PO BID #180 tabs 01/07/22 iron) tablet (Terry-Time) diphenoxylate-atropine 2.5 1 tab PO BID PRN diarrhea #30 tabs 03/30/22 mg-0.025 mg tablet (Lomotil) losartan 25 mg tablet 25 mg PO DAILY #90 tabs 04/13/22 food supplemt, lactose-reduced 237 ml PO TID #5,688 mL 05/08/22 0.04 gram-1 kcal/mL oral liquid (Boost) Current Visit Medications: Current Medications Generic Name Dose Route Start Last Admin Trade Name Freq PRN Reason Stop Dose Admin Ringer's Solution 1,000 mls @ 125 mls/hr 06/16/22 06:00 06/16/22 10:31 IV 06/16/22 18:00 125 mls/hr INFUSION PRETTY Administration IV Miscellaneous Supplies 1 each 06/16/22 06:00 Iv Access IV 06/16/22 23:59 DIRECTED PRETTY Sodium Chloride 0 ml 06/16/22 06:00 Normal Saline Flush 10 Ml Syr IV 06/16/22 23:59 PRN PRN Sodium Chloride 0 ml 06/16/22 06:00 Normal Saline 10 Ml Vial IJ 06/16/22 23:59 DIRECTED PRN Sterile Water 0 ml 06/16/22 06:00 Water,Injection,Sterile 10 Ml Vial IJ 06/16/22 23:59 DIRECTED PRN PFSH Active Problems Active Problems: Problem Status Onset Code Endometrial mass N94.89 Elevated blood pressure reading R03.0 Diarrhea R19.7 Memory loss R41.3 Acute diarrhea R19.7 Colon cancer C18.9 Mass of small intestine K63.89 Iron deficiency anemia due to chronic blood loss D50.0 Intussusception of colon K56.1 Abdominal pain R10.9 Anemia D64.9 GI (gastrointestinal bleed) K92.2 Actinic keratosis L57.0 Visit for suture removal Z48.02 Chest pain 05/05/02 R07.9 Ear pain, left H92.02 Back pain M54.9 Dysplastic skin lesion 02/11/15 L98.8 Osteoporosis M81.0 Osteoarthritis of hand 02/01/14 Idiopathic urticaria 02/11/15 L50.1 Hyperlipidemia with target LDL less than 100 01/26/13 E78.5 Neoplasm of skin D49.2 Medical History Medical History Hiatal hernia Large on CT 02/19/21 Hyperlipidemia Osteoarthritis Medical History Comments:: 06/16/22 - pt fingertips right hand cynaotic on arrival to [facility]. Warm blankets/ warm air resolved issue. Tobacco Smoking/Tobacco Use Status: Never Passive smoking exposure: Yes Alcohol Alcohol Intake: never Substance Use Substance use: Never Substance use type: does not use Vital Signs and Lab Results Vital Signs Most Recent Vital Signs in EMR: Most Recent Vital Signs Temp Pulse Resp BP Pulse Ox 36.4 C L 67 16 136/91 H 99 06/16/22 09:50 06/16/22 09:50 06/16/22 09:50 06/16/22 09:50 06/16/22 09:50 Lab Results Blood Type / Crossmatch: Patient ABO/Rh A Positive 06/14/22 Antibody Screen NEGATIVE 06/14/22 Complete Blood Count: White Blood Count 5.02 10^3/uL (4.4-10.8) 06/14/22 10:48 Red Blood Count 3.82 10^6/uL (3.93-5.22) L 06/14/22 10:48 Hemoglobin 12.3 g/dL (11.2-15.7) 06/14/22 10:48 Hematocrit 37.8 % (36.0-46.0) 06/14/22 10:48 Platelet Count 161 10^3/uL (130-400) 06/14/22 10:48 Complete Metabolic Panel: No Data to Display Liver Function Panel: No Data to Display Coagulation Panel: No Data to Display Cardiac Panel: No Data to Display Arterial Blood Gas: No Data to Display Venous Blood Gas: No Data to Display Pancreas Panel: No Data to Display Thyroid Panel: No Data to Display Infectious Disease: Coronavirus (COVID-19)(PCR) Negative (Negative) 06/14/22 10:00 Coronavirus 2019 Source Nasal/Nares 06/14/22 10:00 Blood Cultures: No Data to Display Toxicology Panel: No Data to Display Anesthesia Assessment and Plan Anesthesia History Personal History: No History of Anesthesia Complications Family History: No Family History of Anesthesia Complications Exercise Tolerance Exercise Tolerance: Metabolic Equivalents>4 Pertinent Negatives Pertinent Negatives: No Symptoms of GERD Cardiac & Pulmonary Exam Cardiac Exam: Normal S1/S2 Heart Sounds Pulmonary Exam: Clear Bilateral Breath Sounds Implantable Cardiac Device Does patient have a Pacemaker or an ICD?: No Airway Exam Known Difficult Airway: No Mallampati Class: 1 Mouth Opening: Normal (> 3cm) Thyromental Distance: Less than 3 cm Neck Range of Motion: Full ROM Neck Circumference: Normal Teeth Condition: Normal Dentition ASA Classification ASA Score: ASA 2 Emergency Case?: No NPO Status NPO Status: NPO Clears >2 hours, Solids >8 hours Anesthesia Plan Resuscitation Status: Full Code Anesthesia Technique: General Anesthesia Airway Planned: Natural Airway Monitors Used: Standard Monitors
[2022-06-16 10:59] VITALS: BMI 17.4
--- NOTE | 2022-06-16 11:48 | ENDO_PTH ---
PATIENT: Noy Wheeler LOC: [facility] U#:[id number] AGE/SX: 87/F ROOM: RE06/16/[address]: Melissa Corral DO : 1935 BED: DIS: 06/16/2022 SPEC #: [id number] RECD: 06/16/22 13:05 STATUS: FABIOLA RE #: [id number] CRAIG: 06/16/22 11:[address]: Melissa Corral DEPT: Surgical Specimen RECD BY: Sissy Anaya ENTERED: 06/16/22 13:07 SP TYPE: Endo OTHR DR: Eligio Maddox MD Tissues: 1 - ENDOCERVICAL BX/CURRETTE 2 - ENDOMETRIUM BX/CURRETTE Procedures: GROSS AND MICRO LEVEL 4 Comments: [id number]
[2022-06-16 12:10] VITALS: BP 113/84; PULSE 62; RESP 14; TEMP 36.3; O2SAT 100
--- NOTE | 2022-06-16 12:12 | W.PM.OP ---
Date of service: 06/16/22 Time of Service: 12:12 Operative Note Operative Note DATE OF PROCEDURE: 06/16/22 PRE-OP DIAGNOSIS: Endometrial mass Same with smooth regular endometrium and endocervix. A small endometrial polyp PROCEDURE: Hysteroscopy with dilation and curettage SURGEON: Melissa Corral ANESTHESIA TYPE: General:No Airway Refer to Anesthesia Record ESTIMATED BLOOD LOSS: 5 PATHOLOGY: other (1. Endocervical curettings 2. Endometrial curette) COMPLICATIONS: None Patient was transported to: same day Indications: With endometrial lesion, failed endometrial sampling in the office Findings: Smooth regular endocervix and endometrium. Benign appearing endometrial polyp. Procedure Description: Patient taken the operating suite with an IV running where she is placed in dorsal supine position. Anesthesia administered and found to be adequate. She was prepped and draped in the usual sterile sterile fashion in the open stirrups. Exam under anesthesia revealed a uterus that is midline and mobile. Speculum inserted into the posterior vaginal vault and a single-tooth tenaculum used to grasp the anterior lip of the cervix. Cervical os dilated to point that a 5 mm hysteroscope could be passed with ease. With 0 fluid deficit of normal saline a hysteroscopic inspection was performed. The endocervix and endometrium appeared smooth and regular there appeared to be a small, benign-appearing endometrial polyp. At this point fractional dilation and curettage was performed with curettings of both the endocervix and endometrium and grasping of the polyp for tissue biopsy. At this point, the procedure was terminated and the patient was returned to the dorsal supine position and awoke from anesthesia with ease. Findings: Smooth regular endocervix and endometrium. Small endometrial polyp Complications: None apparent Fluids: Crystalloid per anesthesia with 0 fluid deficit from the hysteroscopy portion. EBL: 5 mL Pathology: 1. Endocervical curetting 2. Endometrial curetting
--- NOTE | 2022-06-16 12:45 | W.ANESPOSTOP ---
Postoperative Evaluation Date, Time and Location Date Performed: 06/16/22 Time Performed: 12:45 Patient Location: Day Surgery Unit Vital Signs Most Recent Imported Vital Signs: Most Recent Vital Signs Temp Pulse Resp BP Pulse Ox 36.3 C L 62 14 113/84 100 06/16/22 12:10 06/16/22 12:10 06/16/22 12:10 06/16/22 12:10 06/16/22 12:10 Pain Score Most Recent Pain Score: Most Recent Pain Score Pain Level 0 06/16/22 12:10 Assessment Mental Status: Awake (Alert & Oriented to Patient Baseline) Airway and Respiratory Function: Patent airway with normal (patient baseline) respiratory exam Cardiovascular Function: Hemodynamically Stable Hydration Status: Adequately Hydrated Nausea & Vomiting: No Nausea or Vomiting Pain: Pt. Denies Any Pain Peripheral Nerve Block: Patient did not receive a nerve block
[2022-06-16 12:49] VITALS: BP 134/84; PULSE 72; RESP 16; TEMP 36.3; O2SAT 100
== END 2022-06-16 13:17 | disposition home or self-care (01) ==
PROVIDERS: PCP Family Medicine; Visit Provider Obstetrics & Gynecology
PROC: 0UDB8ZZ Extraction of Endometrium, Via Natural or Artificial Opening Endoscopic (ICD-10-PCS; CPT 58558; principal; 2022-06-16 11:00)
DX: N84.0 Polyp of corpus uteri (principal); D26.0 Other benign neoplasm of cervix uteri
CPT/HCPCS: 58558; 88305; J1100; J1885; J2405; J2704

== ENCOUNTER 2022-08-05 17:28 | Emergency (ER) | payer MEDICARE, SELFPAY ==
[2022-08-05] VITALS (16 sets, daily range): BP systolic 85–186; BP diastolic 52–95; PULSE 81–92; RESP 13–25; TEMP 36.7; O2SAT 92–95
--- NOTE | 2022-08-05 17:15 | RT.EKG_ITS ---
APPROVED REPORT Exam: Resting ECG Reason for Exam: chest pain Patient Location: E HR:89 bpm ECG Measurements Heart Rate 89 AXIS DC 146 P 21 QRSd 133 QRS 82 QT 430 T 27 QTc 525 Conclusion Sinus rhythm...normal P axis, V-rate 60- 99 Right bundle branch block...QRSd>120, terminal axis(90,270) Nonspecific T abnormalities, lateral leads...T <-0.10mV, I aVL V5 V6. Sinus. Normal axis. No STEMI. I have reviewed and interpreted ECG and agree with software generated interpretation.
--- NOTE | 2022-08-05 17:45 | DI.CT_ITS ---
Exam(s) CT CHEST PE CTA EXAM: CT CHEST PE CTA CLINICAL HISTORY: R sided pleuritic chest pain, r/o PE. TECHNIQUE: Imaging Protocol: CT angiography of the chest was performed using pulmonary embolus misael col. Multi planar reconstructions were performed. CONTRAST MATERIAL: Intravenous: Omnipaque 350 Contrast volume: 100 cc COMPARISON: CT CT ABDOMEN PELVIS W from 04/08/2022 CR,XR XR CHEST 1V IN DI DEPT from 04/08/2022 FINDINGS: CHEST: PULMONARY ARTERIES: There are no intraluminal filling defects to suggest acute pulmonary emboli. LUNGS: There is infiltrate in the medial segment of the right middle lobe adjacent to the heart borde r. There bronchograms noted within this infiltrate. There is a small ipsilateral right pleural effu channing.. Also small fissure based 5 millimeter nodule right middle lobe region. No significant focal findings in the opposite-left lung. No left pleural effusion. No findings in the trachea and mainst em bronchi. MEDIASTINUM: There is no hilar nor mediastinal adenopathy. CARDIAC: Heart size is upper normal. There is no pericardial effusion.However, there is a filling de fect in the left atrium measuring approximately 3 x 1.5 cm, possibly intracardiac thrombus or atrial myxoma. Diameter of the ascending thoracic aorta is upper normal. No evidence of dissection. No ob vious shift of the interventricular septum. PARTIALLY VISUALIZED UPPERMOST ABDOMEN: No obvious findings OSSEOUS: No significant osseous lesions.Compression fracture of L1 is unchanged from abdominal CT sca n of April 2022. There also compression fractures of T8 and T9, age indeterminate but not appeari ng acute.. IMPRESSION: 1. No evidence of acute pulmonary emboli.. 2. Right middle lobe infiltrate. Small right pleural effusion. 3. There is a 3 x 1.5 cm filling defect in the left atrium. This is possibly intraluminal thrombus o r tumor such as atrial myxoma. Cardiology consultation recommended. Other findings as above. RADIATION DOSE DELIVERED: 162.5mGy.cm Total DLP DATA REPOSITORY: All CT scans at this facility are submitted to the National Radiology Data Registry (NRDR) Dose Index Registry (DIR) with the [employer] (A[employer]). RADIATION OPTIMIZATION: All CT scans at this facility use at least one of these dose optimization te chniques: automated exposure control; mA and/or kV adjustment per patient size (includes targeted exa ms where dose is matched to clinical indication); or iterative reconstruction.
--- NOTE | 2022-08-05 17:45 | ED.GENADUL_ITS ---
Discharge Plan Disposition Patient Disposition: Home Condition: Stable Discharge Details Clinical Impression: Pneumonia, Cardiac mass Primary Care Provider: Eligio Maddox ED Provider: Kevin Clifford Home Meds and New Rx's Prescriptions: New amoxicillin-pot clavulanate 875-125 mg tablet 1 tab PO BID 7 Days Qty: 14 0RF doxycycline hyclate 100 mg tablet 100 mg PO BID 7 Days Qty: 14 0RF Continued Bio-K plus 50 billion cell capsule,delayed release(DR/EC) 1 cap PO DAILY Qty: 30 0RF ferrous sulfate [Terry-Time] 325 mg (65 mg iron) tablet 325 mg PO BID Qty: 180 3RF losartan 25 mg tablet 25 mg PO DAILY Qty: 90 3RF CENTRUM SILVER TABLET 1 EACH tablet 1 ea PO DAILY cholecalciferol (vitamin D3) [Vitamin D3] 400 UNIT capsule 800 unit PO DAILY Aspirin/Acetaminophen/Caffeine [Excedrin Extra Strength Caplet] 1 EACH tablet 1 ea PO PRN PRN Boost 0.04 gram- 1 kcal/mL liquid 237 ml PO TID Qty: 5688 12RF diphenoxylate-atropine [Lomotil] 2.5-0.025 mg tablet 1 tab PO BID PRN (Reason: diarrhea) Qty: 30 5RF Discharge Instructions Instructions: Pneumonia (ED) Additional Instructions: Your CT scan today notes worsening of your right lung pneumonia compared to your CT scan from April 2022. Prescriptions for 2 antibiotics, Augmentin and doxycycline, have been sent electronically to your pharmacy to take as directed until finished. Drink plenty of fluids and get plenty of rest. Follow-up with cardiology as recommended for further evaluation of the cardiac mass noted on your CT scan imaging today. Follow-up with your primary care doctor in 1 week. Return to the emergency department with any worsening or new concerning symptoms such as fever, shortness of breath, worsening chest pain or any other concerns. Discharge Data Discharge Physician: Beena Cha Medical Decision Making 174 -- 87-year-old female with a history of hyperlipidemia, osteoarthritis and colon cancer presents with right-sided sharp chest pain that occurs with deep breathing that started 1 hour prior to arrival. Blood pressure moderately hypertensive, remainder vitals within normal limits. Clear breath sounds throughout. Normal respiratory rate and oxygen saturation. She also is afebrile and appears nontoxic. Her chest and abdomen are nontender. Differential diagnosis includes pneumonia, PE, pneumothorax although this appears less likely. Will obtain screening labs, CT chest. We will give a dose of IV Tylenol for pain relief. 1999 --Labs and imaging reviewed. White blood cell count normal at 6.71. Normal electrolytes. Troponin negative. CT chest notes a right middle lobe pneumonia. Review of records and imaging notes that patient had a right middle lobe in April 2022 which was treated with amoxicillin and Zithromax. This area of consolidation does appear larger in size compared to April [address] imaging. As patient states she had complete resolution of her symptoms since then, suspect this is a new pneumonia. Patient has no report of shortness of breath and is breathing comfortably with normal respiratory rate and oxygen saturation. Patient would like to go home. Will cover with Augmentin and doxycycline. Oral doses ordered here and prescription sent electronically to her pharmacy. An additional finding on her CT imaging noted a 3.2 x 1.5 cm hypodense area within the right anterior lateral aspect of the left atrium, possibly intracardiac thrombus versus primary cardiac tumor, such as myxoma and recommend cardiology evaluation. These images will be pushed to [facility] cardiology for review and recommendations. 2019 --Case endorsed to Dr. Clifford to follow-up with [facility] cardiology regarding recommendations. Medical Records Medical records reviewed: Yes I reviewed the patient's medical records. Imaging Data Radiologic Study: Radiologist's impression: CTA Chest With Contrast Exam date and time: 08/05/2022 6:55 PM Age: 87 years old Clinical indication: Pain; Right-sided; Additional info: R sided pleuritic chest pain, R/O pe TECHNIQUE: Imaging protocol: Computed tomographic angiography of the chest with contrast. 3D rendering (Not supervised by radiologist): MIP and/or 3D reconstructed images were created by the technologist. Radiation optimization: All CT scans at this facility use at least one of these dose optimization techniques: automated exposure control; mA and/or kV adjustment per patient size (includes targeted exams where dose is matched to clinical indication); or iterative reconstruction. Contrast material: OMNI 350; Contrast volume: 100 ml; Contrast route: INTRAVENOUS (IV);? COMPARISON: CT CHEST WO 10/12/2021 9:01 AM FINDINGS: Pulmonary arteries: No acute pulmonary emboli. Aorta: Unremarkable. No aortic aneurysm. No aortic dissection. Lungs: 4 mm noncalcified subpleural pulmonary nodule within the anterior basal segment right lower lobe (series 5, image 41), unchanged. Focal consolidation with air bronchograms within the medial segment right middle lobe, compatible with pneumonia. 3 mm noncalcified pulmonary nodule within the central aspect of the right middle lobe, unchanged. Pleural spaces: Small right pleural effusion with associated atelectasis. Heart: Mild 4 chamber cardiac enlargement. 3.2 x 1.5 cm hypodense area within the right anterolateral aspect of the left atrium (series 8, image 332), possibly intracardiac thrombus versus primary cardiac tumor, such as myxoma. Lymph nodes: Unremarkable. No enlarged lymph nodes. Bones/joints: Unremarkable. No acute fracture. Soft tissues: Unremarkable. IMPRESSION: 1. ? No acute pulmonary emboli. 2. ? Focal consolidation with air bronchograms within the medial segment right middle lobe, compatible with pneumonia. Recommend follow-up. 3. ? 3.2 x 1.5 cm hypodense area within the right anterolateral aspect of the left atrium (series 8, image 332), possibly intracardiac thrombus versus primary cardiac tumor, such as myxoma. Recommend cardiology evaluation. Lab Data Lab results reviewed: Yes I reviewed the patient's lab results. Labs: Laboratory Tests Range/Units 08/05/22 08/05/22 18:10 18:10 WBC (4.4-10.8) 10^3/uL 6.71 RBC (3.93-5.22) 10^6/uL 3.78 L Hgb (11.2-15.7) g/dL 12.2 Hct (36.0-46.0) % 37.4 MCV (80-95) fL 99 H MCH (27.0-33.0) pg 32.3 MCHC (32.0-36.0) % 32.6 RDW (11.7-14.6) % 13.1 Plt Count (130-400) 10^3/uL 136 MPV (8.0-11.0) fL 12.3 H Immature Gran % 0.1 Neutrophils % 81.1 Lymphocytes % 14.3 Monocytes % 4.0 Eosinophils % 0.4 Basophils % 0.1 Nucleated RBC % (0.0-0.3) % 0.0 Absolute Neutrophils (1.2-6.7) 10^3/uL 5.43 Absolute Lymphocytes (1.2-3.4) 10^3/uL 0.96 L Absolute Monocytes (0.1-0.8) 10^3/uL 0.27 Absolute Eosinophils (0.0-0.7) 10^3/uL 0.03 Absolute Basophils (0.0-0.2) 10^3/uL 0.01 Sodium (136-145) mmol/L 142 Potassium (3.5-5.1) mmol/L 4.1 Chloride (98-107) mmol/L 104 Carbon Dioxide (21.0-32.0) mmol/L 31.8 Anion Gap (3-11) mmol/L 6.2 BUN (7-18) mg/dL 26 H Creatinine (0.55-1.02) mg/dL 0.9 Est GFR (CKD-EPI 2020) (mL/min/1.73m2) 62.65 Glucose (74-106) mg/dL 84 Calcium (8.5-10.1) mg/dL 9.5 Magnesium (1.8-2.4) mg/dL 2.0 Total Bilirubin (0.2-1.0) mg/dL 0.5 AST (15-37) U/L 46 H ALT (14-59) U/L 57 Alkaline Phosphatase (46-116) U/L 173 H Troponin I (<or=60) ng/L < 50 Total Protein (6.4-8.2) g/dL 7.3 Albumin (3.4-5.0) g/dL 3.7 ECG Data Attestation: I personally reviewed and interpreted this ECG (s) as follows: Interpretation: rate of 89, sinus, normal axis, no stemi. HPI General Mode of arrival: ambulatory . Date/Time Provider Initiated Documentation: 08/05/22 17:35 . Limitations to Documentation: no limitations . Information obtained by: patient . HPI Narrative: Patient is an 87-year-old female with a history of hyperlipidemia and colon can cer presents for right-sided pleuritic chest pain for the past hour. Patient states she was sitting at home when she developed sudden onset of sharp pain with deep breath in her right chest. She denies any significant difficulty breathing, fever, cough, abdominal pain, vomiting or diarrhea. She denies any injury or leg swelling. Patient states she had similar symptoms occurring within the past year and was diagnosed with pneumonia. Related Data Home Medications Medication Instructions Recorded Confirmed Centrum Silver Tablet 1 ea PO DAILY 01/13/13 08/05/22 cholecalciferol (vitamin D3) 10 800 unit PO DAILY 09/14/16 08/05/22 mcg (400 unit) capsule (Vitamin D3) Aspirin/Acetaminophen/Caffeine 1 ea PO PRN PRN 02/23/17 08/05/22 [Excedrin Extra Strength Caplet] L. acidophilus,casei,rhamnosus 50 1 cap PO DAILY #30 caps 03/05/21 08/05/22 billion cell capsule,delayed release (Bio-K plus) ferrous sulfate 325 mg (65 mg 325 mg PO BID #180 tabs 01/07/22 08/05/22 iron) tablet (Terry-Time) losartan 25 mg tablet 25 mg PO DAILY #90 tabs 04/13/22 08/05/22 food supplemt, lactose-reduced 237 ml PO TID #5,688 mL 05/08/22 08/05/22 0.04 gram-1 kcal/mL oral liquid (Boost) diphenoxylate-atropine 2.5 1 tab PO BID PRN diarrhea #30 tabs 07/29/22 08/05/22 mg-0.025 mg tablet (Lomotil) amoxicillin 875 mg-potassium 1 tab PO BID 7 days #14 tabs 08/05/22 clavulanate 125 mg tablet doxycycline hyclate 100 mg tablet 100 mg PO BID 7 days #14 tabs 08/05/22 Previous Rx's Medication Instructions Recorded L. acidophilus,casei,rhamnosus 50 1 cap PO DAILY #30 caps 03/05/21 billion cell capsule,delayed release (Bio-K plus) ferrous sulfate 325 mg (65 mg 325 mg PO BID #180 tabs 01/07/22 iron) tablet (Terry-Time) losartan 25 mg tablet 25 mg PO DAILY #90 tabs 04/13/22 food supplemt, lactose-reduced 237 ml PO TID #5,688 mL 05/08/22 0.04 gram-1 kcal/mL oral liquid (Boost) diphenoxylate-atropine 2.5 1 tab PO BID PRN diarrhea #30 tabs 07/29/22 mg-0.025 mg tablet (Lomotil) amoxicillin 875 mg-potassium 1 tab PO BID 7 days #14 tabs 08/05/22 clavulanate 125 mg tablet doxycycline hyclate 100 mg tablet 100 mg PO BID 7 days #14 tabs 08/05/22 Allergies Allergy/AdvReac Type Severity Reaction Status Date / Time No Known Allergies Allergy Verified 08/05/22 17:38 General Stated Complaint: Chest Pain GERMANIA: 3 Review of Systems All systems reviewed & are unremarkable except as noted in HPI and below Constitutional Constitutional: Reports as per HPI, Denies chills and Denies fever(s) Eyes Eyes: Denies blurry vision ENT Ears, Nose, Mouth, and Throat: Denies dizziness, Denies sore throat and Denies throat swelling Cardiovascular Cardiovascular: Reports chest pain and Denies dyspnea Respiratory Respiratory: Denies cough and Denies dyspnea Gastrointestinal Gastrointestinal: Denies abdominal pain, Denies diarrhea and Denies vomiting Genitourinary Genitourinary: Denies hematuria and Denies dysuria Musculoskeletal Musculoskeletal: Denies back pain and Denies numbness Integumentary/Breasts Skin/Breast: Denies lesions and Denies rash Neurologic Neurologic: Denies dizziness, Denies localized weakness and Denies numbness Allergic/Immunologic Allergic/Immunologic: Denies throat swelling PFSH All Active Problems (Updated 08/05/22 @ 20:16 by Beena Cha DO) Pneumonia (Acute) Cardiac mass (Acute) Weight loss (Acute) Postoperative state (Acute) Endometrial mass (Acute) benign findings on Bx Elevated blood pressure reading (Acute) Diarrhea (Acute) Memory loss (Acute) Colon cancer (Chronic) Iron deficiency anemia due to chronic blood loss (Acute) Anemia (Chronic) Actinic keratosis (Acute) Chest pain (Acute 05/05/02) Back pain (Acute) Osteoporosis (Acute) Osteoarthritis of hand (Acute 02/01/14) Idiopathic urticaria (Acute 02/11/15) Hyperlipidemia with target LDL less than 100 (Acute 01/26/13) Neoplasm of skin (Acute) return for punch biopsy as scheduled Medical History (Updated 08/05/22 @ 20:16 by Beena Cha DO) Hiatal hernia Large on CT 02/19/21 Hyperlipidemia Osteoarthritis Surgical History (Updated 08/05/22 @ 18:27 by Beena Cha DO) History of local excision of skin lesion Family History Mother , GI BLEED at age 86. Essential hypertension Father , age 79 Pulmonary fibrosis CHF (congestive heart failure) Heart disease Sister , age 72 Essential hypertension Hyperlipidemia Liver cancer Maternal Grandfather No problems noted. Paternal Grandfather No problems noted. Maternal Grandmother Cancer Paternal Grandmother No problems noted. Brother , age 80? Pancreatic cancer Brother , age 60? Heart disease Sister No problems noted. Social History Smoking/Tobacco Use Status: Never Smoking risk assessment performed?: Yes Alcohol Intake: never Drug use: Never Substance use type: does not use Caregiver/Support person: No Household members: none Communication Needs: None Do you need help understanding health information?: Never Pets and animals: No Sexually active: No Do you think of yourself as: straight/heterosexual What is your relationship status?: How often do you talk on the phone with friends or family?: three or more times per week How often do you get together with friends or relatives?: three or more times per week How often do you attend baptism or congregation services?: 1-3 times per year Do you belong to any clubs or organized social groups?: no Panel score (0-1 are the most socially isolated patients): 1 What type of physical activity do you participate in: other Details: [employer] and decline to answer Duration: decline to answer Frequency: 1-2 times per week Johanne/Gnosticism: No preference Special johanne needs: No Seatbelt use: always Helmet use: Yes Helmet use: always Drive intox or ride w/intox bus driver/monitor: No Do you feel safe at home: Yes Additional Social history: 06/16/22 - unable to assess privately, carer Romi in room. Exam Const General: cooperative, healthy appearing and no acute distress HENMT Head: normal to inspection Face and sinus: normal facial exam Eyes General: appearance normal, both eyes and all related structures Pupils: PERRL EOM: EOM intact bilaterally Neck Neck: normal visual inspection and No submandibular swelling Lymphatic: no lymphadenopathy noted Chest Chest: normal inspection of the chest and no tenderness Resp Effort & Inspection: normal respiratory effort and able to speak in complete sentences Cardio Rate: regular rate Rhythm: regular rhythm GI Inspection: normal to inspection Palpation: soft, not firm, not rigid and nontender Auscultation: hypoactive bowel sounds Back/Spine/Pelvis Thoracic/Lumbar Spine: thoracic and lumbar spine normal to inspection Pelvis: no pain with anterior-posterior compression Skin General skin exam: no rashes or lesions noted Neuro General: patient alert, patient awake and patient oriented x3 Cognition: normal cognition Speech: speech normal Motor: muscle tone normal throughout Sensory Exam: no sensory deficits noted Extrem General: normal to inspection, full ROM and no edema Psych Appearance: grossly normal Mental Status: mental status grossly normal Speech and Movement: speech and movement normal Affect: normal affect Course Vital Signs Vital signs: Vital Signs Temperature 98.1 F 08/05/22 17:39 Pulse 87 08/05/22 17:39 Respiratory Rate 16 08/05/22 17:39 Blood Pressure 186/95 H 08/05/22 17:39 Pulse Oximetry 95 08/05/22 17:39 Temperature 98.1 F 08/05/22 17:39 Temperature Source Oral 08/05/22 17:39 Pulse 87 08/05/22 17:39 Respiratory Rate 16 08/05/22 17:43 Respiratory Effort Normal 08/05/22 17:43 Respiratory Depth Normal 08/05/22 17:43 Respiratory Pattern Normal 08/05/22 17:43 Blood Pressure 186/95 H 08/05/22 17:39 Blood Pressure Position Sitting 08/05/22 17:39 Pulse Oximetry 95 08/05/22 17:39 Oxygen Delivery Method Room Air 08/05/22 17:39 Oxygen Flow Rate 0 08/05/22 17:39 Pain Level 10 08/05/22 17:43 Sign Out Sign Out Data: Sign Out Comment: Sudden onset of right sided pleuritic chest pain this afternoon. Appears to have worsening right middle lobe pneumonia compared to CT from April 2022 in which she was treated for pneumonia and completely resolved. Prescriptions for Augmentin and doxycycline sent electronically to her pharmacy. There was an additional finding of a possible intracardiac mass on CT chest today. Follow-up with [facility] cardiology regarding recommendations. Last updated by Beena Cha DO at 08/05/22 20:28
[2022-08-05 18:17] LABS: Abs Immature Grans 0.01 10^3/uL (0.0-0.06); Absolute Basophil Count 0.01 10^3/uL (0.0-0.2); Absolute Eosinophil Count 0.03 10^3/uL (0.0-0.7); Absolute Lymphocyte Count 0.96 10^3/uL (1.2-3.4); Absolute Monocyte Count 0.27 10^3/uL (0.1-0.8); Absolute Neutrophil Count 5.43 10^3/uL (1.2-6.7); Basophils % 0.1; Eosinophils % 0.4; HCT 37.4 % (36.0-46.0); HGB 12.2 g/dL (11.2-15.7); Immature Grans % 0.1; Lymphocytes % 14.3; MCH 32.3 pg (27.0-33.0); MCHC 32.6 % (32.0-36.0); MCV 99 fL (80-95); MPV 12.3 fL (8.0-11.0); Neutrophils % 81.1; Platelet Count 136 10^3/uL (130-400); RBC 3.78 10^6/uL (3.93-5.22); RDW 13.1 % (11.7-14.6); RDW-SD 47.5 fL; WBC 6.71 10^3/uL (4.4-10.8)
[2022-08-05] MEDS: Normal Saline 500 ML IV (18:21)
[2022-08-05] MEDS: ACETAMINOPHEN 1,000 MG/100 ML BTL 400 MG IVPB (18:29)
[2022-08-05 18:41] LABS: ALT 57 U/L (14-59); AST 46 U/L (15-37); Albumin 3.7 g/dL (3.4-5.0); Alkaline Phosphatase 173 U/L (46-116); Anion Gap 6.2 mmol/L (3-11); BUN 26 mg/dL (7-18); Bilirubin, Total 0.5 mg/dL (0.2-1.0); CO2 31.8 mmol/L (21.0-32.0); CREATININE 0.9 mg/dL (0.55-1.02); Calcium 9.5 mg/dL (8.5-10.1); Chloride 104 mmol/L (98-107); Estimated GFR 62.65 (mL/min/1.73m2); Glucose 84 mg/dL (74-106); Potassium 4.1 mmol/L (3.5-5.1); Sodium 142 mmol/L (136-145); Total Protein 7.3 g/dL (6.4-8.2); Troponin I < 50 ng/L (<or=60)
[2022-08-05] MEDS: Normal Saline - Diluent 50 ML VIAL IJ (19:02)
[2022-08-05] MEDS: Omnipaque 350 MG/ML 100 ML BTL IJ (19:03)
--- NOTE | 2022-08-05 19:58 | DI.VRAD_ITS ---
PROCEDURE INFORMATION: Exam: CTA Chest With Contrast Exam date and time: 08/05/2022 6:55 PM Age: 87 years old Clinical indication: Pain; Right-sided; Additional info: R sided pleuritic chest pain, R/O pe TECHNIQUE: Imaging protocol: Computed tomographic angiography of the chest with contrast. 3D rendering (Not supervised by radiologist): MIP and/or 3D reconstructed images were created by the technologist. Radiation optimization: All CT scans at this facility use at least one of these dose optimization techniques: automated exposure control; mA and/or kV adjustment per patient size (includes targeted exams where dose is matched to clinical indication); or iterative reconstruction. Contrast material: OMNI 350; Contrast volume: 100 ml; Contrast route: INTRAVENOUS (IV); COMPARISON: CT CHEST WO 10/12/2021 9:01 AM FINDINGS: Pulmonary arteries: No acute pulmonary emboli. Aorta: Unremarkable. No aortic aneurysm. No aortic dissection. Lungs: 4 mm noncalcified subpleural pulmonary nodule within the anterior basal segment right lower lobe (series 5, image 41), unchanged. Focal consolidation with air bronchograms within the medial segment right middle lobe, compatible with pneumonia. 3 mm noncalcified pulmonary nodule within the central aspect of the right middle lobe, unchanged. Pleural spaces: Small right pleural effusion with associated atelectasis. Heart: Mild 4 chamber cardiac enlargement. 3.2 x 1.5 cm hypodense area within the right anterolateral aspect of the left atrium (series 8, image 332), possibly intracardiac thrombus versus primary cardiac tumor, such as myxoma. Lymph nodes: Unremarkable. No enlarged lymph nodes. Bones/joints: Unremarkable. No acute fracture. Soft tissues: Unremarkable. IMPRESSION: 1. No acute pulmonary emboli. 2. Focal consolidation with air bronchograms within the medial segment right middle lobe, compatible with pneumonia. Recommend follow-up. 3. 3.2 x 1.5 cm hypodense area within the right anterolateral aspect of the left atrium (series 8, image 332), possibly intracardiac thrombus versus primary cardiac tumor, such as myxoma. Recommend cardiology evaluation. Dictated and Authenticated by: Aguilar Dunbar MD. Ordering:OSCAR Hargrove MD
[2022-08-05] MEDS: Doxycycline Hyclate 100 MG CAP PO (20:26)
[2022-08-05] MEDS: Amoxicillin 875/Clav. 125 TAB PO (20:26)
--- NOTE | 2022-08-05 22:38 | ED.PROG_ITS ---
Date of service: 08/05/22 Time of Service: 22:38 Medical Decision Making Patient was signed out to me by my colleague Dr. Beena Cha. Please refer to HPI, physical exam, assessment and plan. At time of signout the patient was notably clinically stable. Plan was to consult [facility] on the atypical finding noted on her CT scan. She had already been given antibiotics for her pneumonia. [facility] did call back at 10:15 PM, 2 hours after initial page. I spoke with Dr. Chew. He is uncertain if it is a thrombus or myxoma. He recommends echo in the morning for further delineation and then call back shortly thereafter. He does recommend anticoagulation with subcu Lovenox. We will administer this. Patient remained stable and we are continue to monitor here on telemetry. Case will be signed out to my colleague for follow-up on echo. 08/06 15: 37 patient resting comfortably no acute distress, patient has been waiting nearly 24 hours for results of echo and follow-up recommendations from [facility] cardiology and cardiothoracic surgery. 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 Cardiothoracic surgeon has been an extensive case all day and is unclear when they will be available for consultation. Family eager to get home. Given patient's stability I am amenable to allowing her and family to go home we will arrange close follow- up/referral with [facility] cardiothoracic surgery for next week. If patient worsens or if we get any information from CT surgery to indicated that she may be an operative candidate, she will be called back Sign Out Sign Out Data: Sign Out Comment: Sudden onset of right sided pleuritic chest pain this afternoon. Appears to have worsening right middle lobe pneumonia compared to CT from April 2022 in which she was treated for pneumonia and completely reso lved. Prescriptions for Augmentin and doxycycline sent electronically to her pharmacy. There was an additional finding of a possible intracardiac mass on CT chest today. Follow-up with [facility] cardiology regarding recommendations. Last updated by Beena Cha DO at 08/05/22 20:28 Sign Out Comment: Right-sided pleuritic chest pain this afternoon, CT scan shows evidence of worsening right middle lobe pneumonia. However there is also potential myxoma noted in atria. Pending echo and then reconsult with [facility] cardiology. Antibiotic prescriptions have already been sent for treatment of pneumonia. Lovenox was given last night. Last updated by Kevin Clifford DO at 08/06/22 06:58 Discharge Plan Disposition Patient Disposition: Home Condition: Stable Discharge Details Clinical Impression: Pneumonia, Cardiac mass Primary Care Provider: Eligio Maddox ED Provider: Sohail Byrne Home Meds and New Rx's Prescriptions: New amoxicillin-pot clavulanate 875-125 mg tablet 1 tab PO BID 7 Days Qty: 14 0RF doxycycline hyclate 100 mg tablet 100 mg PO BID 7 Days Qty: 14 0RF Continued Bio-K plus 50 billion cell capsule,delayed release(DR/EC) 1 cap PO DAILY Qty: 30 0RF ferrous sulfate [Terry-Time] 325 mg (65 mg iron) tablet 325 mg PO BID Qty: 180 3RF losartan 25 mg tablet 25 mg PO DAILY Qty: 90 3RF CENTRUM SILVER TABLET 1 EACH tablet 1 ea PO DAILY cholecalciferol (vitamin D3) [Vitamin D3] 400 UNIT capsule 800 unit PO DAILY Aspirin/Acetaminophen/Caffeine [Excedrin Extra Strength Caplet] 1 EACH tablet 1 ea PO PRN PRN Boost 0.04 gram- 1 kcal/mL liquid 237 ml PO TID Qty: 5688 12RF diphenoxylate-atropine [Lomotil] 2.5-0.025 mg tablet 1 tab PO BID PRN (Reason: diarrhea) Qty: 30 5RF Discharge Instructions Instructions: Pneumonia (ED) Additional Instructions: Your CT scan today notes worsening of your right lung pneumonia compared to your CT scan from April 2022. Prescriptions for 2 antibiotics, Augmentin and doxycycline, have been sent electronically to your pharmacy to take as directed until finished. Drink plenty of fluids and get plenty of rest. Follow-up with cardiology as recommended for further evaluation of the cardiac mass noted on your CT scan imaging today. Please follow-up with cardiothoracic surgery at [facility] a referral has been placed. Follow-up with your primary care doctor in 1 week. Return to the emergency department with any worsening or new concerning symptoms such as fever, shortness of breath, worsening chest pain or any other concerns. Discharge Data Discharge Date/Time-TO BE ENTERED AT DEPARTURE: 08/06/22 15:53 Discharge Physician: Beena Cha
[2022-08-05] MEDS: Ondansetron 4 MG/2 ML VIAL IVP (23:02)
[2022-08-05] MEDS: Enoxaparin 120 MG/0.8 ML SYR SC (23:03)
[2022-08-06] VITALS (171 sets, daily range): BP systolic 76–130; BP diastolic 49–77; PULSE 67–91; RESP 11–28; O2SAT 92–100
[2022-08-06] MEDS: Normal Saline 500 ML IV (00:33)
--- NOTE | 2022-08-06 07:30 | DI.US_ITS ---
APPROVED REPORT EXAM: Comprehensive 2D, Doppler, and color-flow Echocardiogram Patient Location: ER Room/Bed: 8 Cpr Instructor: Saige Vides RDCS (AE) Indications: Atrial mass Conclusion Left ventricle appears grossly normal in size and wall thickness. Ejection fraction is within the ra nge of normal. 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 It is not mobi le Aortic valve is trileaflet and sclerotic. There is mild aortic regurgitation Mitral valve appears structurally normal Tricuspid valve is structurally normal with mild to moderate regurgitation Wall motion
--- NOTE | 2022-08-06 07:53 | NUR.NOTE ---
Echo at bedside
--- NOTE | 2022-08-06 10:34 | NUR.NOTE ---
pt has ambulated x2 to bathroom with a steady gait this am. visitors at bedside at this time. lunch has been ordered for ptMD moore with pt eating.
--- NOTE | 2022-08-06 14:20 | NUR.NOTE ---
ok with pt taking her antibiotics that were filled yesterday.
--- NOTE | 2022-08-06 14:24 | NUR.NOTE ---
[facility] [phone]
--- NOTE | 2022-08-06 15:38 | NUR.NOTE ---
Nursing Note: PT info given to care management for referral[place] [facility] [place]. Lina, ED
--- NOTE | 2022-08-06 16:04 | NUR.NOTE ---
one of pts daughters very upset that this RN cannot guarantee the doctor will call one or all of the daughters with update about consult. This RN explained that pt is alert, oriented and able to make own decisions and does not have any evoked healthcare proxy or guardian so the doctor does need to inform the pt of her own results/updates.
== END 2022-08-06 15:53 | disposition home or self-care (01) ==
PROVIDERS: Physician Assistant; Emergency Provider Emergency Medicine; PCP Family Medicine
DX: J18.9 Pneumonia, unspecified organism (principal); I51.9 Heart disease, unspecified; Z79.82 Long term (current) use of aspirin
CPT/HCPCS: 36415; 71275; 80053; 93005; 93306; 96361; 96365; 99285; 83735; 84484; 85025; 93010; J0131; J1650; J2405; J3490

== ENCOUNTER 2022-09-04 14:57 | Emergency (ER) | payer MEDICARE, SELFPAY ==
[2022-09-04] VITALS (10 sets, daily range): BP systolic 102–127; BP diastolic 62–79; PULSE 62–94; RESP 16; TEMP 36.6; O2SAT 98–100
--- NOTE | 2022-09-04 15:00 | RT.EKG_ITS ---
APPROVED REPORT Exam: Resting ECG Reason for Exam: dizziness Patient Location: E HR:68 bpm ECG Measurements Heart Rate 68 AXIS DC 142 P 63 QRSd 133 QRS 79 QT 451 T 24 QTc 480 Conclusion Sinus rhythm...normal P axis, V-rate 60- 99 Right bundle branch block...QRSd>120, terminal axis(90,270)
--- NOTE | 2022-09-04 15:25 | W.ED.GENAD ---
Discharge Plan Disposition Patient Disposition: Home Discharge Details Clinical Impression: Urinary tract infection Primary Care Provider: Eligio Maddox ED Provider: Ryan Blanco Home Meds and New Rx's Prescriptions: New cephalexin 500 mg capsule 500 mg PO TID Qty: 20 0RF No Action Bio-K plus 50 billion cell capsule,delayed release(DR/EC) 1 cap PO DAILY Qty: 30 0RF ferrous sulfate [Terry-Time] 325 mg (65 mg iron) tablet 325 mg PO BID Qty: 180 3RF losartan 25 mg tablet 25 mg PO DAILY Qty: 90 3RF CENTRUM SILVER TABLET 1 EACH tablet 1 ea PO DAILY cholecalciferol (vitamin D3) [Vitamin D3] 400 UNIT capsule 800 unit PO DAILY Aspirin/Acetaminophen/Caffeine [Excedrin Extra Strength Caplet] 1 EACH tablet 1 ea PO PRN PRN diphenoxylate-atropine [Lomotil] 2.5-0.025 mg tablet 1 tab PO BID PRN (Reason: diarrhea) Qty: 30 5RF Boost 0.04 gram- 1 kcal/mL liquid 237 ml PO TID Qty: 5688 12RF Discharge Instructions Instructions: Urinary Tract Infection in Women (ED) Additional Instructions: You are diagnosed with a urine tract infection. The first dose of the antibiotic was given to the emergency department. Very important that you warp picker your prescription and continue taking antibiotic as prescribed. Please follow your primary care doctor next week. You may return to the emergency room if you have any concern Medical Decision Making 87-year-old lady brought to the emergency department for evaluation after she was found to be somewhat confused. Her mental status is not clear. She was also complaining some dizziness. Work-up in the emergency department revealed that she has a urine tract infection. She will be treated with cephalexin. CBC and chemistries were within normal limits. HPI General Date/Time Provider Initiated Documentation: 09/04/22 15:07. HPI Narrative: 87-year-old lady states that this morning she felt lightheaded. She denies passing out. States feeling lightheaded and dizzy occurs once in a while. No headaches. No fevers no chills. No nausea no vomiting. No chest pain no shortness. No abdominal pain. no diarrhea Related Data Home Medications Medication Instructions Recorded Confirmed Centrum Silver Tablet 1 ea PO DAILY 01/13/13 09/04/22 cholecalciferol (vitamin D3) 10 800 unit PO DAILY 09/14/16 09/04/22 mcg (400 unit) capsule (Vitamin D3) Aspirin/Acetaminophen/Caffeine 1 ea PO PRN PRN 02/23/17 09/04/22 [Excedrin Extra Strength Caplet] L. acidophilus,casei,rhamnosus 50 1 cap PO DAILY #30 caps 03/05/21 09/04/22 billion cell capsule,delayed release (Bio-K plus) ferrous sulfate 325 mg (65 mg 325 mg PO BID #180 tabs 01/07/22 09/04/22 iron) tablet (Terry-Time) losartan 25 mg tablet 25 mg PO DAILY #90 tabs 04/13/22 09/04/22 diphenoxylate-atropine 2.5 1 tab PO BID PRN diarrhea #30 tabs 07/29/22 09/04/22 mg-0.025 mg tablet (Lomotil) food supplemt, lactose-reduced 237 ml PO TID #5,688 mL 08/19/22 09/04/22 0.04 gram-1 kcal/mL oral liquid (Boost) cephalexin 500 mg capsule 500 mg PO TID #20 caps 09/04/22 Previous Rx's Medication Instructions Recorded L. acidophilus,casei,rhamnosus 50 1 cap PO DAILY #30 caps 03/05/21 billion cell capsule,delayed release (Bio-K plus) ferrous sulfate 325 mg (65 mg 325 mg PO BID #180 tabs 01/07/22 iron) tablet (Terry-Time) losartan 25 mg tablet 25 mg PO DAILY #90 tabs 04/13/22 diphenoxylate-atropine 2.5 1 tab PO BID PRN diarrhea #30 tabs 07/29/22 mg-0.025 mg tablet (Lomotil) food supplemt, lactose-reduced 237 ml PO TID #5,688 mL 08/19/22 0.04 gram-1 kcal/mL oral liquid (Boost) cephalexin 500 mg capsule 500 mg PO TID #20 caps 09/04/22 Allergies Allergy/AdvReac Type Severity Reaction Status Date / Time No Known Allergies Allergy Verified 09/04/22 15:06 General Stated Complaint: Dizzy/Sync GER[place]: 3 Review of Systems Narrative: 10 point review of system is negative unless otherwise specified in the HPI PFSH All Active Problems (Updated 09/04/22 @ 17:55 by Ryan Blanoc MD) Urinary tract infection (Acute) Pneumonia (Acute) Cardiac mass (Acute) Weight loss (Acute) Postoperative state (Acute) Endometrial mass (Acute) benign findings on Bx Elevated blood pressure reading (Acute) Diarrhea (Acute) Memory loss (Acute) Colon cancer (Chronic) Iron deficiency anemia due to chronic blood loss (Acute) Anemia (Chronic) Actinic keratosis (Acute) Chest pain (Acute 05/05/02) Back pain (Acute) Osteoporosis (Acute) Osteoarthritis of hand (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 Essential hypertension Father , age 79 Pulmonary fibrosis CHF (congestive heart failure) Heart disease Sister , age 72 Essential hypertension Hyperlipidemia Liver cancer Maternal Grandfather No problems noted. Paternal Grandfather No problems noted. Maternal Grandmother Cancer Paternal Grandmother No problems noted. Brother , age 80? Pancreatic cancer Brother , age 60? Heart disease Sister No problems noted. Social History Smoking/Tobacco Use Status: Never Smoking risk assessment performed?: Yes Alcohol Intake: never Drug use: Never Substance use type: does not use Caregiver/Support person: No Household members: none Communication Needs: None Do you need help understanding health information?: Never Pets and animals: No Sexually active: No Do you think of yourself as: straight/heterosexual What is your relationship status?: How often do you talk on the phone with friends or family?: three or more times per week How often do you get together with friends or relatives?: three or more times per week How often do you attend alevism or gnosticism services?: 1-3 times per year Do you belong to any clubs or organized social groups?: no Panel score (0-1 are the most socially isolated patients): 1 What type of physical activity do you participate in: other Details: Bone [employer] and decline to answer Duration: decline to answer Frequency: 1-2 times per week Johanne/Yarsanism: No preference Special johanne needs: No Seatbelt use: always Helmet use: Yes Helmet use: always Drive intox or ride w/intox truck driver: No Do you feel safe at home: Yes Additional Social history: 06/16/22 - unable to assess privately, carer Romi in room. Exam Narrative Exam Narrative: Awake alert calm no acute distress cooperative pleasant. Petite Normocephalic atraumatic PERRLA EOMI MMM anicteric Neck no JVD supple Chest clear to auscultation bilaterally Heart regular rhythm and rate no murmurs Abdomen soft nondistended nontender Back normal inspection Skin no rashes Neuro 2-12 grossly intact strength 5/5 bilaterally Psych mildly flat mood and affect Course Vital Signs Vital signs: Vital Signs Temperature 36.6 C 09/04/22 15:00 Pulse 94 H 09/04/22 15:00 Respiratory Rate 16 09/04/22 15:00 Blood Pressure 122/62 09/04/22 15:00 Temperature 36.6 C 09/04/22 15:00 Pulse 94 H 09/04/22 15:00 Respiratory Rate 16 09/04/22 15:04 Respiratory Effort Normal 09/04/22 15:04 Respiratory Pattern Normal 09/04/22 15:04 Blood Pressure 122/62 09/04/22 15:00 Blood Pressure Position Sitting 09/04/22 15:00 Oxygen Delivery Method Room Air 09/04/22 15:00 Oxygen Flow Rate 0 09/04/22 15:00 Pain Level 0 09/04/22 15:00
--- NOTE | 2022-09-04 15:30 | DI.RAD_ITS ---
Exam(s) XR CHEST 2V PA LATERAL EXAM: XR CHEST 2V PA LATERAL CLINICAL HISTORY: weakness. TECHNIQUE: 2D digital imaging was performed. COMPARISON: CR,XR XR CHEST 1V IN DI DEPT from 04/08/2022 FINDINGS: 2 views: Heart size is upper normal. The mediastinum is not widened. Bilateral hyperinflation noted. Nodular densities project over the lung bases are most probably esme st nipples. There are no confluent infiltrates nor pleural effusions. No pulmonary edema. No pneum othorax. Compression fracture of midthoracic vertebra noted. Age indeterminate. IMPRESSION: Hyperinflation but no acute pulmonary findings.No pleural effusions. Midthoracic spine compression fracture noted. Probably not acute. DATA REPOSITORY: RADIATION DOSE DELIVERED:
--- NOTE | 2022-09-04 15:47 | NUR.NOTE ---
Nursing Note: Pt ambulates back from restroom w/ steady gait. A&O. C/o episode of dizziness this afternoon while standing cooking. States she sat down to rest. Denies any further dizziness. Denies any CP,SOB, or N/V. Resp even and unlabored.
[2022-09-04 15:51] LABS: Abs Immature Grans 0.02 10^3/uL (0.0-0.06); Absolute Basophil Count 0.02 10^3/uL (0.0-0.2); Absolute Eosinophil Count 0.04 10^3/uL (0.0-0.7); Absolute Lymphocyte Count 1.48 10^3/uL (1.2-3.4); Absolute Monocyte Count 0.49 10^3/uL (0.1-0.8); Absolute Neutrophil Count 5.76 10^3/uL (1.2-6.7); Basophils % 0.3; Eosinophils % 0.5; HCT 39.4 % (36.0-46.0); HGB 12.8 g/dL (11.2-15.7); Immature Grans % 0.3; MCH 32.7 pg (27.0-33.0); MCHC 32.5 % (32.0-36.0); MCV 101 fL (80-95); Monocytes % 6.3; Neutrophils % 73.6; Platelet Count 179 10^3/uL (130-400); RBC 3.92 10^6/uL (3.93-5.22); RDW 13.3 % (11.7-14.6); RDW-SD 49.3 fL; WBC 7.81 10^3/uL (4.4-10.8)
--- NOTE | 2022-09-04 16:07 | DI.VRAD_ITS ---
PROCEDURE INFORMATION: Exam: XR Chest Exam date and time: 09/04/2022 3:56 PM Age: 87 years old Clinical indication: Other: Weakness TECHNIQUE: Imaging protocol: Radiologic exam of the chest. Views: 2 views. COMPARISON: CT CHEST PE CTA 08/05/2022 6:55 PM FINDINGS: Lungs: The lungs remain hyperaerated and hyperlucent. There is a tiny 3 mm nodular density at the right lung base slightly medially. No focal infiltrates. Pleural spaces: Unremarkable. No pleural effusion. No pneumothorax. Heart/Mediastinum: Unremarkable. No cardiomegaly. Vasculature: There is mild aortic ectasia. Bones/joints: Unremarkable. IMPRESSION: No definite acute abnormality seen in the chest. Dictated and Authenticated by: Gerda Goins MD. Ordering:YVETTE Davis MD
[2022-09-04 16:14] LABS: ALT 43 U/L (14-59); AST 30 U/L (15-37); Albumin 3.6 g/dL (3.4-5.0); Alkaline Phosphatase 165 U/L (46-116); Anion Gap 7.5 mmol/L (3-11); BUN 29 mg/dL (7-18); Bilirubin, Total 0.5 mg/dL (0.2-1.0); CO2 29.5 mmol/L (21.0-32.0); Calcium 9.4 mg/dL (8.5-10.1); Chloride 102 mmol/L (98-107); Estimated GFR 55.21 (mL/min/1.73m2); Glucose 103 mg/dL (74-106); Sodium 139 mmol/L (136-145); Total Protein 7.5 g/dL (6.4-8.2); Troponin I < 50 ng/L (<or=60)
[2022-09-04 17:04] LABS: Bilirubin Negative (Negative); Blood Negative (Negative); Clarity Sl Cloudy (Clear); Glucose Negative (Negative); Ketones Negative (Negative); Leukocyte Esterase Trace (Negative); Nitrite Negative (Negative); Specific Gravity >= 1.030 (1.005-1.025); Urobilinogen 0.2 mg/dL (Up to 0.2); pH 5.5 (5-8)
[2022-09-04 17:15] LABS: Bacteria Few HPF (Negative); Epithelial Cells Few HPF (Negative); RBC 0-2 HPF (0-2)
[2022-09-04 17:16] LABS: C & S Indicated? Yes; Casts 0-2 Hyaline LPF (Negative); Crystals Negative HPF (Negative); Mucus Trace (Negative)
[2022-09-04] MEDS: Cephalexin 500 MG CAP PO (18:15)
--- NOTE | 2022-09-06 09:17 | NUR.NOTE ---
Nursing Note: Accessed chart to look up whether or not on antibiotic.
== END 2022-09-04 18:23 | disposition home or self-care (01) ==
PROVIDERS: Emergency Provider Emergency Medicine; PCP Family Medicine
DX: N39.0 Urinary tract infection, site not specified (principal)
CPT/HCPCS: 80053; 93005; 99283; 71046; 81003; 81015; 84484; 85025; 87086; 93010; 99284